=== PATIENT | male | born 1950 | race Caucasian/White ===

== ENCOUNTER 2018-02-19 09:40 | Emergency (ER) | payer OTHER, SELFPAY ==
[2018-02-19 10:29] LABS: BASO % 0.1 % (0.0-1.0); EOS # 0.2 10^3/uL (0.0-0.50); EOS % 3.2 % (0.0-3.0); HEMATOCRIT 44.8 % (42.0-52.0); HEMOGLOBIN 15.6 g/dl (13.5-17.5); IMMATURE GRANULOCYTE % 0.3 % (0-3.0); LYMPH # 1.6 10^3/uL (1.5-4.5); MEAN CORPUSCULAR HEMOGLOBIN 34.9 pg (27.0-33.0); MEAN CORPUSCULAR HGB CONC 34.8 g/dl (32.0-36.5); MEAN CORPUSCULAR VOLUME 100.2 fl (80.0-96.0); MONO # 0.4 10^3/uL (0.0-0.8); NEUTROPHILS # 4.9 10^3/uL (1.8-7.7); NEUTROPHILS % 68.4 % (36.0-66.0); PLATELET COUNT, AUTOMATED 201 10^3/uL (150-450); RED BLOOD COUNT 4.47 10^6/uL (4.30-6.10); RED CELL DISTRIBUTION WIDTH 13.1 % (11.5-14.5); WHITE BLOOD COUNT 7.2 10^3/uL (4.0-10.0)
[2018-02-19 10:38] LABS: INR 0.95; PROTHROMBIN TIME 12.7 SECONDS (12.1-14.4)
[2018-02-19 10:39] LABS: PARTIAL THROMBOPLASTIN TIME 33.4 SECONDS (25.4-37.6)
[2018-02-19 11:06] LABS: ALBUMIN 3.5 GM/DL (3.2-5.2); ALBUMIN/GLOBULIN RATIO 1.09 (1.00-1.93); ALKALINE PHOSPHATASE 51 U/L (45-117); ALT/SGPT 23 U/L (12-78); ANION GAP 8 MEQ/L (8-16); AST/SGOT 13 U/L (7-37); BILIRUBIN,DIRECT 0.1 MG/DL (0.0-0.2); BILIRUBIN,TOTAL 0.4 MG/DL (0.2-1.0); BLOOD UREA NITROGEN 13 MG/DL (7-18); CALCIUM LEVEL 8.5 MG/DL (8.8-10.2); CARBON DIOXIDE LEVEL 26 MEQ/L (21-32); CHLORIDE LEVEL 108 MEQ/L (98-107); CPK CREATINE PHOSPHOKINASE 121 U/L (39-308); CREATININE FOR GFR 0.75 MG/DL (0.70-1.30); FREE T4 1.02 NG/DL (0.76-1.46); GLOMERULAR FILTRATION RATE > 60.0 (>49); GLUCOSE, FASTING 105 MG/DL (70-100); LIPASE 117 U/L (73-393); MB/CK RELATIVE INDEX 2.56 (< OR =4); POTASSIUM SERUM 4.5 MEQ/L (3.5-5.1); SODIUM LEVEL 142 MEQ/L (136-145); TOTAL PROTEIN 6.7 GM/DL (6.4-8.2); TROPONIN I < 0.02 NG/ML (< 0.10)
[2018-02-19] MEDS: NITROGLYCERIN 0.4 MG SUBL TABLET SL (11:06)
[2018-02-19] MEDS: ASPIRIN 81 MG CHEW TABLET PO (11:06)
[2018-02-19 16:23] LABS: CPK CREATINE PHOSPHOKINASE 96 U/L (39-308); TROPONIN I < 0.02 NG/ML (< 0.10)
== END 2018-02-19 16:58 | disposition home or self-care (01) ==
LOC: M ED 09:40
DX: S29.001A Unspecified injury of muscle and tendon of front wall of thorax, initial encounter (principal); X58.XXXA Exposure to other specified factors, initial encounter; Y92.89 Other specified places as the place of occurrence of the external cause; E78.5 Hyperlipidemia, unspecified; I44.0 Atrioventricular block, first degree; F17.210 Nicotine dependence, cigarettes, uncomplicated
CPT/HCPCS: 71046

== ENCOUNTER 2018-10-11 23:11 | Emergency (ER) | payer OTHER ==
[~2018-10-11] VITALS: Ht 182.9 cm; Wt 104.5 kg
[~2018-10-11 23:11] MED LIST: TRAZ1TAB11 PO
[2018-10-12] MEDS ORDERED: KETOROLAC 60 MG/2 ML VIAL (J1885) IM ONE (03:30)
--- NOTE | 2018-10-12 05:13 | REPVR ---
EXAM: CT Lumbar Spine Without Contrast EXAM DATE/TIME: 10/12/2018 3:17 AM CLINICAL HISTORY: 67 years old, male; Injury or trauma; Fall; Initial encounter; Blunt trauma (contusions or hematomas); Additional info: Pain/injury TECHNIQUE: Imaging protocol: Axial computed tomography images of the lumbar spine without intravenous contrast. Coronal and sagittal reformatted images were created and reviewed. Radiation optimization: All CT scans at this facility use at least one of these dose optimization techniques: automated exposure control; mA and/or kV adjustment per patient size (includes targeted exams where dose is matched to clinical indication); or iterative reconstruction. COMPARISON: No relevant prior studies available. FINDINGS: Vertebrae: Moderate degenerative hypertrophic vertebral body changes. Posterior subluxation L2 on L3. Discs/Spinal canal/Neural foramina: Diffuse facet arthritis. Posterior broad-based disc bulge L2-3. Posterior broad-based disc bulge L3-4 with degenerative changes manifest mild central canal stenosis. Mild posterior disc bulge with slight asymmetric extension to the left laterally with facet arthritis and ligamentum flavum thickening manifests [id number] central canal stenosis L4-5 with small inferior foraminal narrowing. No severe canal stenosis L5-S1. Soft tissues: Unremarkable. Calcification at the left renal sinus is most likely vascular in origin. Stomach and bowel: Minor adjacent colonic diverticuli. Vasculature: Calcified abdominal aorta. Ectasia or borderline aneurysmal dilatation distal abdominal aorta measures 3.1 CM. IMPRESSION: 1. Moderate degenerative changes lumbar spine. 2. Mild to moderate central canal stenosis L4-5 with mild central canal stenosis L3-4. 3. Ectasia or borderline aneurysmal dilatation distal abdominal aorta. Electronically signed by: Ana Maria Nunes On 10/12/2018 05:12:28 AM
[2018-10-12 05:41] VITALS: BP 135/86
== END 2018-10-12 05:47 | disposition home or self-care (01) ==
LOC: M ED 23:11
DX: S39.012A Strain of muscle, fascia and tendon of lower back, initial encounter (principal); W10.8XXA Fall (on) (from) other stairs and steps, initial encounter; Y92.9 Unspecified place or not applicable; Y93.9 Activity, unspecified; M48.061 Spinal stenosis, lumbar region without neurogenic claudication; M51.26 Other intervertebral disc displacement, lumbar region; E78.49 Other hyperlipidemia; F17.210 Nicotine dependence, cigarettes, uncomplicated
CPT/HCPCS: 72131; 96372; 99284; J1885

== ENCOUNTER → 2019-11-01 | Outpatient (CLI) | payer OTHER ==
[2019-11-28 19:32] LABS: BASO % 0.2 % (0.0-1.0); EOS # 0.2 10^3/uL (0.0-0.5); EOS % 3.4 % (0.0-3.0); HEMOGLOBIN 14.8 g/dl (13.5-17.5); LYMPH # 1.2 10^3/uL (1.5-5.0); LYMPH % 23.5 % (24.0-44.0); MEAN CORPUSCULAR HEMOGLOBIN 35.8 pg (27.0-33.0); MEAN CORPUSCULAR HGB CONC 34.4 g/dl (32.0-36.5); MEAN CORPUSCULAR VOLUME 104.1 fl (80.0-96.0); MONO # 0.4 10^3/uL (0.0-0.8); MONO % 8.3 % (0.0-5.0); NEUTROPHILS # 3.4 10^3/uL (1.5-8.5); NEUTROPHILS % 64.4 % (36.0-66.0); PLATELET COUNT, AUTOMATED 203 10^3/uL (150-450); RED BLOOD COUNT 4.13 10^6/uL (4.30-6.10); WHITE BLOOD COUNT 5.3 10^3/uL (4.0-10.0)
[2019-12-16 09:03] LABS: ALBUMIN 3.5 GM/DL (3.2-5.2); ALT/SGPT 25 U/L (12-78); BILIRUBIN,DIRECT 0.1 MG/DL (0.0-0.2); BILIRUBIN,TOTAL 0.4 MG/DL (0.2-1.0); BLOOD UREA NITROGEN 15 MG/DL (7-18); CREATININE FOR GFR 0.87 MG/DL (0.70-1.30); FERRITIN 97 NG/ML (26-388); FOLATE 9.9 NG/ML; GLOMERULAR FILTRATION RATE > 60.0 (>49); IRON (FE) 110 UG/DL (65-175); PERCENT SATURATION 44.5 % (19.7-50.0); TOTAL IRON BINDING CAPACITY 247 UG/DL (250-450); TOTAL PROTEIN 6.6 GM/DL (6.4-8.2); VITAMIN B12 LEVEL 311 PG/ML
== END ==
LOC: M LAB 13:36
PROVIDERS: ATTEND Internal Medicine Gastroenterology
DX: D50.9 Iron deficiency anemia, unspecified (principal)

== ENCOUNTER 2019-11-11 09:10 | Day surgery (SDC) | payer OTHER ==
[2019-11-11] MEDS ORDERED: propofoL 200 MG/20 ML VIAL As Ordered ONE ×2 (09:21→10:48)
[2019-11-11] MEDS ORDERED: propofoL 500 MG/50 ML VIAL As Ordered ONE (10:30)
--- NOTE | 2019-12-14 11:33 | ROOR ---
Patient Name: Arpit Hudson Procedure Date: 11/11/2019 10:17 AM Date of : 1950 Age: 68 Room: [facility] Gender: Male Note Status: Finalized Procedure: Colonoscopy Indications: High risk colon cancer surveillance: Personal history of colonic polyps, Incidental - Constipation Providers: Young Hamilton MD Referring MD: DEL WHITE MD Requesting Provider: Medicines: Monitored Anesthesia Care Complications: No immediate complications. Procedure: Pre-Anesthesia Assessment: - Prior to the procedure, a History and Physical was performed, and patient medications and allergies were reviewed. The patient is competent. The risks and benefits of the procedure and the sedation options and risks were discussed with the patient. All questions were answered and informed consent was obtained. Patient identification and proposed procedure were verified by the physician, the nurse and the anesthesiologist in the procedure room. Mental Status Examination: alert and oriented. Airway Examination: normal oropharyngeal airway and neck mobility. Respiratory Examination: clear to auscultation. CV Examination: normal. Prophylactic Antibiotics: The patient does not require prophylactic antibiotics. Prior Anticoagulants: The patient has taken no previous anticoagulant or antiplatelet agents. ASA Grade Assessment: II - A patient with mild systemic disease. After reviewing the risks and benefits, the patient was deemed in satisfactory condition to undergo the procedure. The anesthesia plan was to use monitored anesthesia care (MAC). Immediately prior to administration of medications, the patient was re-assessed for adequacy to receive sedatives. The heart rate, respiratory rate, oxygen saturations, blood pressure, adequacy of pulmonary ventilation, and response to care were monitored throughout the procedure. The physical status of the patient was re-assessed after the procedure. The Colonoscope was introduced through the anus and advanced to the cecum, identified by appendiceal orifice and ileocecal valve. The colonoscopy was performed without difficulty. The patient tolerated the procedure well. The quality of the bowel preparation was fair. The ileocecal valve, appendiceal orifice, and rectum were photographed. Scope insertion time was 4 minutes. Scope withdrawal time was 8 minutes. The total duration of the procedure was 12 minutes. Findings: The perianal and digital rectal examinations were normal. Four sessile polyps were found in the recto-sigmoid colon, descending colon and transverse colon. The polyps were 4 to 8 mm in size. These polyps were removed with a jumbo cold forceps. Resection and retrieval were complete. Verification of patient identification for the specimen was done by the physician and nurse using the patient's name, date and medical record number. Estimated blood loss was minimal. Multiple small and large-mouthed diverticula were found from sigmoid to descending colon. There was no evidence of diverticular bleeding. Non-bleeding external and internal hemorrhoids were found during retroflexion. The hemorrhoids were medium-sized. Impression: - Preparation of the colon was fair. - Four 4 to 8 mm polyps at the recto-sigmoid colon, in the descending colon and in the transverse colon, removed with a jumbo cold forceps. Resected and retrieved. - Moderate diverticulosis from sigmoid to descending colon. There was no evidence of diverticular bleeding. - Non-bleeding external and internal hemorrhoids. Recommendation: - Patient has a contact number available for emergencies. The signs and symptoms of potential delayed complications were discussed with the patient. Return to normal activities tomorrow. Written discharge instructions were provided to the patient. - High fiber diet. - Continue present medications. - Await pathology results. - Use fiber, for example Citrucel, Fibercon, Konsyl or Metamucil. - Telephone GI clinic for pathology results in 2 weeks. - Repeat colonoscopy in 3 years because the bowel preparation was suboptimal and for surveillance based on pathology results. - Return to GI clinic if persistent symptoms or new symptoms. - Return to primary care physician. Young Hamilton MD Young Hamilton MD 11/11/2019 10:58:48 AM Electronically signed by Young Hamilton MD Number of Addenda: 0 Note Initiated On: 11/11/2019 10:17 AM Estimated Blood Loss: Estimated blood loss was minimal.
== END 2019-11-11 11:27 | disposition home or self-care (01) ==
LOC: M OPP 09:10
PROVIDERS: ATTEND Internal Medicine Gastroenterology
DX: K57.30 Diverticulosis of large intestine without perforation or abscess without bleeding (principal); K64.8 Other hemorrhoids; K63.5 Polyp of colon; R19.4 Change in bowel habit; D50.9 Iron deficiency anemia, unspecified; Z86.010 Personal history of colon polyps; Z79.899 Other long term (current) drug therapy

== ENCOUNTER → 2020-01-03 | Outpatient (CLI) | payer OTHER | LOC: M LABSMTC 12:39 | PROVIDERS: ATTEND Family Medicine | DX: Z20.828 Contact with and (suspected) exposure to other viral communicable diseases (principal) | CPT/HCPCS: C9803; U0003 ==

== ENCOUNTER → 2020-03-27 | Outpatient (CLI) | payer OTHER ==
--- NOTE | 2020-03-31 16:53 | REP ---
INDICATION: INITIAL STAGING NEW CANCER DX SMALL CELL. Diagnosis small cell lung carcinoma on endoscopic bronchial ultrasound-guided biopsy. Patient reports biopsy date March 26, 2020. He also reports a prior history of prostate carcinoma. Diagnosed in 2008. Status post radiation therapy COMPARISON: No comparison chest imaging is available.. TECHNIQUE: Forty-five minutes following the intravenous injection of a 8.77 mCi dose of F-18 FDG, three-dimensional PET scintigraphy is acquired from the skull base to the proximal thighs. Triplanar noncontrast CT scanning is acquired through the same anatomic range for attenuation correction, and image registration with scan parameters optimized to minimize radiation exposure to the patient. PET scintigraphy and CT datasets were fused and displayed on a workstation with multiplanar and projection display capability. FINDINGS: There is a focus of hypermetabolic uptake in the region of the supraglottic larynx. Maximum standard uptake value here is 4.81. This should be correlated clinically. I cannot exclude a supraglottic laryngeal malignant focus. There are hypermetabolic pleural based nodular foci in the right lung apex. Maximum standard uptake value is 4.51, 3.40, and 2.42 in the 3 visible right apical pleural based nodules. There is an additional nodule anteriorly in the right upper lobe which is not visibly hypermetabolic. There is a small focus of pleural thickening laterally in the right upper lobe, maximum SUV value 2.52. There is right hilar hypermetabolic charlene focus, maximum SUV value 8.62 consistent with metastatic adenopathy. In the abdomen and pelvis there is no abnormal hypermetabolic uptake. IMPRESSION: Hypermetabolic uptake in 3 pleural based nodular foci in the right upper lobe and 1 equivocal focus in the right upper lobe. Hypermetabolic right hilar adenopathy. Also noted is a hypermetabolic focus in the supraglottic larynx just to the right of midline. This latter finding should be correlated clinically. <Electronically signed by Jesse Saldivar > 03/31/20 [id number]
== END ==
LOC: M PLARAD 15:21
DX: R93.89 Abnormal findings on diagnostic imaging of other specified body structures (principal); C34.11 Malignant neoplasm of upper lobe, right bronchus or lung; Z85.46 Personal history of malignant neoplasm of prostate
CPT/HCPCS: 78815; A9552

== ENCOUNTER → 2020-04-12 | Outpatient (CLI) | payer OTHER ==
[~2020-04-12] MED LIST changes: +ATIV1TAB7 PO; +PROHANCE 279.3MG/ML 15ML VIAL As Ordered ONE; +PROHANCE 279.3MG/ML 5ML VIAL As Ordered ONE
--- NOTE | 2020-04-13 08:48 | REP ---
INDICATION: CARCINOMA IN SITU OF UNSPECIFIED BRONCHUS AND LUNG. History of small cell lung carcinoma. COMPARISON: No comparison brain imaging. . TECHNIQUE: Axial and sagittal imaging planes are utilized for T1 and T2-weighted scans. Sequences include spin-echo, fast spin echo, FLAIR, and diffusion weighted sequences. Gadolinium enhancement dose is 19 mL of intravenous ProHance. Postcontrast imaging is acquired in all 3 planes. FINDINGS: No bony destructive lesion is seen. Craniocervical junction and upper cervical cord are normal in appearance. There is no MR evidence of significant paranasal sinus disease. No intraorbital abnormality is seen. There is evidence of small-vessel atherosclerotic change in the periventricular white matter of the supratentorial brain bilaterally. Unfortunately, diffusion weighted and post gadolinium enhanced images demonstrate multiple foci of somewhat restricted diffusion and contrast enhancement bilaterally in the brain consistent with early metastatic disease. The largest of these lesions is in the right basal ganglia 4 mm in size. There is a single lesion in the right cerebellar peduncle. No other infratentorial lesion is seen. There are multiple supratentorial tiny nodules of enhancement bilaterally. On FLAIR images a few of these show evidence of early vasogenic edema. No extra-axial fluid collection is seen. No infarct or hemorrhage is noted. IMPRESSION: There are multifocal areas of restricted diffusion and abnormal contrast enhancement in the parenchyma of the supratentorial brain, and a single focus in the right cerebellar peduncle, consistent with intracranial metastatic disease. Small vessel changes are noted. Otherwise negative. <Electronically signed by Jesse Saldivar > 04/13/20 [id number]
== END ==
LOC: M RAD 16:58
PROVIDERS: ATTEND Internal Medicine Pulmonary Disease
DX: D02.20 Carcinoma in situ of unspecified bronchus and lung (principal)
CPT/HCPCS: 70553; A9576

== ENCOUNTER → 2020-04-17 | Outpatient (CLI) | payer OTHER ==
[~2020-04-17] MED LIST changes: -PROHANCE 279.3MG/ML 15ML VIAL As Ordered ONE; -PROHANCE 279.3MG/ML 5ML VIAL As Ordered ONE
--- NOTE | 2020-04-17 16:11 | RADONC.CN ---
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 He is seen s/p cycle 1 of chemotherapy @ [facility] on 04/05/20 for consideration of RT. Diagnosis/Treatment History Oncologic History 50+ pack year current smoker served in [place] [employer] Presented for screening CT chest in early 2019, this showed an abnormal RUL nodule. He underwent biopsy of the RUL nodule in 09/19/19 which was negative. Repeat CT chest in February 2020 showed 2 additional nodules and a suspicious right hilar/mediastinal node. EBUS was performed and returned SCLC on 03/13/20. He underwent PET-CT on 03/27/20 which revealed no extrathoracic foci of disease. He started cisplatin/etoposide on 04/05/20 with plans to transfer all care to [facility]. His MRI head from 04/12/20 showed (2) 4 mm brain metastases. Interval History He is here today alone. Has several children and grandchildren. Clearly expressed his goals of care are to live from this disease as long as possible and to fight. He currently smokes. He has no major medical problems. Appetite is good weight stable. Has no complaints of pain today. No CP, SOB, N, V, fevers, chills, PINO. Past Medical History: Anxiety/PTSD PTSD COPD Alcoholism in remission Prostate cancer s/p EBRT 2008 [facility] Past Surgical History: As above Family History: No family cancer history Social History: Current smoker 50+ pack year Former drinker Allergies / Meds Allergies: Coded Allergies: No Known Allergies (Unverified , 02/19/18) Home Meds Reported Medications Trazodone HCl (Trazodone HCl) 50 Mg Tab, PO QPM for 30 Days, #30 TAB 02/19/18 Review of Systems Constitutional: Denies: Chills, Fever, Night Sweats Eyes: Denies: Pain, Vision change HEENT: Denies: Head Aches, Dysphagia, Sore Throat Skin: Denies: Rash, Lesions, Bruising Pulmonary: Denies: Dyspnea, Cough Cardiovascular: Denies: Chest Pain, Palpitations, Edema Gastrointestinal: Denies: Nausea, Vomiting, Abdominal Pain, Diarrhea Genitourinary: Denies: Dysuria, Frequency, Incontinence Hematologic: Denies: Bruising, Petecchia, Enlarged Lymph Nodes Musculoskeletal: Denies: Neck pain, Back pain Neurological: Denies: Weakness, Numbness, Incoordination Psych: Reports: Mood Normal; Denies: Memory Issues, Thoughts of Self Harm Vital Signs Wt 222 lb T 98.6 P 69 RR 18 BP 152/94 O2 95% Pain 0 Fatigue 0 General Exam: Positive: Alert, Cooperative, No Acute Distress Eye Exam: Positive: PERRLA, EOMI ENT EXAM: Positive: Mucous membr. moist/pink, Pharynx Normal Neck Exam: Negative: Thyromegaly, Lymphadenopathy Chest Exam: Positive: Normal air movement; Negative: Rales, Rhonchi, Wheezing Heart Exam: Positive: Rate Normal, Regular Rhythm Abdomen Exam: Positive: Soft; Negative: Tenderness, Mass Extremity Exam: Negative: Edema, Tenderness Skin Exam: Positive: Nl turgor and temperature; Negative: Rash Neuro Exam: Positive: Normal Gait, Normal Speech, Cranial Nerves 3-12 NL Psych Exam: Positive: Mental status NL, Mood NL, Memory Intact Diagnostic and Laboratory Diagnostic Review Radiologic images, relevant labs and pathology reports were personally reviewed and discussed with Mr. Hudson. Assessment and Plan Impression Mr. Hudson is a 69 year old male 50+ pack year smoker with recently diagnosed SCLC of the right upper lobe [id number], with (2) 4mm asymptomatic brain metastases on staging MRI head. He is seen s/p cycle 1 of chemotherapy @ [facility] on 04/05/20 for consideration of RT. Stage SCLC right upper lobe [id number] stage FAM Performance Status ECOG 0 Plan We had an extensive discussion with Mr. Hudson regarding the diagnosis at hand and available therapeutic options. He is fit overall and has an extremely low overall disease burden confined to the right hemithorax (small peripheral nodules and single site hilar/mediastinal node) and brain (2 asymptomatic very small metastases). Despite him being ES by definition I think he would be best served by early incorporation of thoracic RT in addition to WBRT with namenda and concurrent chemotherapy for continuation of which he will be seeing Dr. Rodriguez tomorrow. I will give him 30 Gy in 10 fractions WBRT and 60-66 Gy in 30-33 fractions to the chest with 3D conformal planning. He should tolerate this well. Will treat this sites concurrently. Discussed the use of namenda as a neuroprotective agent in the setting of WBRT and he agrees to try. We discussed the logistics of receiving radiation therapy in detail including the need for a 1-time planning session this can occur later this week. We reviewed the possible side effects of treatment including fatigue, hair loss, and neurocognitive dysfunction from WBRT, and esophagitis and pneumonitis from thoracic RT. After discussing the risks, benefits and alternatives to radiation therapy, Mr. Hudson was amenable to pursuing radiotherapy. All questions were answered to the patient's satisfaction. We instructed the patient that if there were any questions,concerns or changes in clinical status in the interim to contact us. Recommendations WBRT 30 Gy in 10 fractions with namenda Thoracic RT 60 Gy in 30 fractions w/ 3D planning daily CBCT Simulation later this week Chemotherapy per CHRIS Rosario MD Apr 17, 2020 16:11
== END ==
LOC: M ONCR 14:28
PROVIDERS: ATTEND General Practice
DX: C34.11 Malignant neoplasm of upper lobe, right bronchus or lung (principal)

== ENCOUNTER 2020-05-04 10:45 | Outpatient (RCR) | payer OTHER | END 2020-05-06 | LOC: M ONCR 10:45 | PROVIDERS: ATTEND General Practice | DX: C34.11 Malignant neoplasm of upper lobe, right bronchus or lung (principal); C79.31 Secondary malignant neoplasm of brain ==

== ENCOUNTER 2020-05-16 13:31 | Inpatient (IN) | payer OTHER ==
[~2020-05-16] VITALS: Ht 182.9 cm; Wt 97.7 kg
[~2020-05-16 13:31] MED LIST changes: -LOVE1INJ SC
--- NOTE | 2020-05-16 15:17 | REP ---
INDICATION: DYSPNEA/COUGH. COMPARISON: 02/19/2018. TECHNIQUE: SINGLE PORTABLE AP VIEW OF THE CHEST WAS PERFORMED. FINDINGS: There is no evidence of acute infiltrate. Heart is not enlarged. Mediastinal silhouette is unchanged. Right central venous catheter is present with the tip in the superior vena cava. Old healed right rib fractures are again noted. IMPRESSION: NO ACUTE PULMONARY DISEASE. <Electronically signed by Jasper Wheeler > 05/16/20 [id number]
[2020-05-16 15:35] LABS: HEMATOCRIT 30.7 % (42.0-52.0); HEMOGLOBIN 10.3 g/dl (13.5-17.5); MEAN CORPUSCULAR HEMOGLOBIN 35.2 pg (27.0-33.0); MEAN CORPUSCULAR HGB CONC 33.6 g/dl (32.0-36.5); MEAN CORPUSCULAR VOLUME 104.8 fl (80.0-96.0); RED BLOOD COUNT 2.93 10^6/uL (4.30-6.10); WHITE BLOOD COUNT 6.2 10^3/uL (4.0-10.0)
[2020-05-16 15:41] LABS: INR 0.89; PROTHROMBIN TIME 12.2 SECONDS (12.5-14.3)
[2020-05-16 15:45] LABS: PLATELET COUNT, AUTOMATED 54 10^3/uL (150-450)
[2020-05-16 15:50] LABS: ATYPICAL LYMPH 1 % (0-5); EOSINOPHILS 1 % (0-3); LYMPHOCYTES 15 % (16-44); MONOCYTES 4 % (0-5); NEUTROPHILS 65 % (28-66)
[2020-05-16 15:51] LABS: ANISOCYTOSIS 1+; PLATELET ESTIMATE DECREASED (NORMAL)
[2020-05-16 15:54] LABS: ALBUMIN 3.2 GM/DL (3.2-5.2); ALT/SGPT 20 U/L (12-78); BILIRUBIN,DIRECT 0.1 MG/DL (0.0-0.2); BILIRUBIN,TOTAL 0.3 MG/DL (0.2-1.0); BLOOD UREA NITROGEN 19 MG/DL (7-18); CALCIUM LEVEL 8.8 MG/DL (8.8-10.2); CARBON DIOXIDE LEVEL 28 MEQ/L (21-32); CHLORIDE LEVEL 105 MEQ/L (98-107); GLOMERULAR FILTRATION RATE > 60.0 (>49); GLUCOSE, FASTING 81 MG/DL (70-100); POTASSIUM SERUM 4.4 MEQ/L (3.5-5.1); SODIUM LEVEL 139 MEQ/L (136-145); TOTAL PROTEIN 6.3 GM/DL (6.4-8.2)
[2020-05-16] MEDS ORDERED: HEPARIN DRIP 25,000 UNITS in IV 1 EA IV SCH (16:17)
[2020-05-16] MEDS ORDERED: HEPARIN SOD (PORCINE) 5000UNITS/ML 1ML VIAL/SYRINGE IV ONE (16:30)
--- OUTSIDE RECORDS SUMMARY | 2020-05-16 16:33 | CCD ---
Author Author [facility] Organization [facility] Address Unknown Phone Unavailable Support Name Relationship Address Phone RE Next Of Kin Unknown Unavailable THEE BUTCHER Next Of Kin Unknown Unavailable [place] [address] UE Next Of Kin Unknown Unavailable DEEJAY GUEVARA Next Of Kin [address] [place], [place] [id number] Re-disclosure Warning The records that you are about to access may contain information from federally-assisted alcohol or drug abuse programs. If such information is present, then the following federally mandated warning applies: This information has been disclosed to you from records protected by federal confidentiality rules (42 CFR part 2). The federal rules prohibit you from making any further disclosure of this information unless further disclosure is expressly permitted by the written consent of the person to whom it pertains or as otherwise permitted by 42 CFR part 2. A general authorization for the release of medical or other information is NOT sufficient for this purpose. The Federal rules restrict any use of the information to criminally investigate or prosecute any alcohol or drug abuse patient.The records that you are about to access may contain highly sensitive health information, the redisclosure of which is protected by Article 27-F of the [facility] Public Health law. If you continue you may have access to information: Regarding HIV / AIDS; Provided by facilities licensed or operated by the [facility] Office of Mental Health; or Provided by the [facility] Office for People With Developmental Disabilities. If such information is present, then the following [facility] mandated warning applies: This information has been disclosed to you from confidential records which are protected by state law. State law prohibits you from making any further disclosure of this information without the specific written consent of the person to whom it pertains, or as otherwise permitted by law. Any unauthorized further disclosure in violation of state law may result in a fine or [place] [facility] sentence or both. A general authorization for the release of medical or other information is NOT sufficient authorization for further disc losure. Insurance Providers Payer name Policy type / Coverage type Policy ID Covered green party ID Covered green party's relationship to tyson Policy Tyson Plan Information 'S ADMINISTRATION [id number] SP [id number] [employer] [place] CCN [id number] SP [id number] [employer] [place] O [id number] S [id number] OTHER B [id number] Self [id number] MEDICARE A [id number] Self [id number] MEDICARE A [id number] Self [id number] A SELF PAY ONLY UNAVAILABLE UNAV AILABLE O UNAVAILABLE UNAVAILA BLE SELF PAY UNAVAILABLE SP UNAVAILA BLE SELF PAY SELF PAY Self DAVID BUTCHER SELF PA Y Results ID Date Data Source [id number] 01/03/2020 01:00:00 PM EDT [facility] Name Value Range Interpretation Code Description Data Luly rce(s) Supporting Document(s) SARS coronavirus 2 RNA [facility] This lab was ordered by [facility] and reported by [facility]. Procedure Vital Signs ID Date Data Source UNK Name Value Range Interpretation Code Description Data Source(s) Body weight 94.349 kg 94.349 kg [facility] ([facility]) Body mass index (BMI) [Ratio] 28.2 kg/m2 28.2 k g/m2 [facility] ([facility]) Body weight 208.00 [lb_av] 208.00 [lb_av] [facility] Body height 72 [in_i] 72 [in_i] [facility] ([facility]) 6'0" Diastolic blood pressure 68 mm[Hg] 68 mm[Hg] [facility] ([facility]) Systolic blood pressure 128 mm[Hg] 128 mm[Hg] [facility] ([facility])
[2020-05-16] MEDS ORDERED: ACETAMINOPHEN TAB 650MG DOSE (2X325MG) PO ONE (16:45)
[2020-05-16 17:03] LABS: PARTIAL THROMBOPLASTIN TIME 36.6 SECONDS (24.2-38.5)
--- NOTE | 2020-05-16 17:14 | HPEPDOC ---
[facility] Medical History & Physical Date of Admission May 16, 2020 Date of Service: May 16, 2020 Attending Physician: Christiana Browning MD History and Physical CHIEF COMPLAINT: port swelling, chest pain HISTORY OF PRESENT ILLNESS: Patient is an 69-year-old male with past medical history of small cell lung cancer with metastasis to the brain status post radiation and chemotherapy, COPD and prostate cancer status post radiation who presented to [facility] today after being sent in from his doctor's office for right neck swelling and pain. The patient was at radiation today and was found to have a large right neck, right upper chest swelling which occurred acutely today. An ultrasound was done showing a right subclavian, right axillary and right subclavian DVT. The patient states a right chest port was placed on 04/05/2020 at the [facility] [place] and immediately he felt some pain. He states 2 weeks ago he noticed right upper chest pain with movement of his arm which was bothersome. Today he noticed acute swelling on the right side of the neck and right upper chest. This is when he brought it up to his radiation oncologist admitted the outpatient ultrasound showing the results already mentioned. He was sent into the emergency room to be further evaluated. The patient admits to having occasional shortness of breath, coughing, nausea, diarrhea with some weight loss since starting chemotherapy and radiation but denies chest pain, fevers, chills. The emergency room, vital signs were stable. The ultrasound findings were discussed with Dr. Quiles, interventional radiology. She recommended admitting for heparin drip and monitoring for decreased swelling of the right side of the neck and face. She states that the patient can be discharged with Lovenox when the swelling begins to go down. There were no other acute complaints or abnormal findings on exam. The patient was admitted for occlusive thrombus distal right jugular vein, adjacent subclavian vein and central aspect of axillary vein, partial thrombus of the more superior right jugular vein requiring anticoagu lation. REVIEW OF SYSTEMS: Neg except mentioned above PAST MEDICAL HISTORY: Small cell Lung CA with metastasis to brain s/p radiation and currently undergoing chemotherapy COPD prostate CA s/p radiation PAST SURGICAL HISTORY: Right chest port placement 03/2020 Right wrist surgery FAMILY HISTORY: Father: emphysema. at 80 y/o Mother: breast cancer. at 71 y/o SOCIAL HISTORY: Smoker for 52 years, 2 packs per day. Currently still smokes. Thinks alcohol socially during the week. History of drug addiction but has been clean for over 30 years. He lives alone in [facility]. He follows with the [facility] in [place] for his primary care. His heme/onc Dr. is Dr. Rodriguez, Dr. Dubois for radiation oncology. ALLERGIES: Please see below. HOME MEDICATIONS: Please see below. PHYSICAL EXAMINATION: VS: stable , please see below CONSTITUTIONAL: No acute distress, resting comfortably, AAO x 3 EYES: PERRLA, EOM intact HENT, MOUTH: Normocephalic, atraumatic, moist mucous membranes, alopecia NECK: Increased swelling of right neck, right upper chest- tender to touch, no erythema. no lymphadenopathy, no carotid bruit CV: Regular rate and rhythm, S1S2 normal, no murmurs/rubs/gallops RESPIRATORY: Clear to auscultation bilaterally, no rales/rhonchi/wheezes GI: BS positive in 4 quadrants, soft, nontender, nondistended, no rebound or guarding, no organomegaly : Deferred MUSCULOSKELETAL: Normal ROM. No cyanosis, clubbing, swelling, joint deformity, extremity edema INTEGUMENTARY: Intact, no rashes, no lesions, no erythema NEUROLOGIC: Cranial Nerves II-XII are intact, no focal deficits PSYCHIATRIC: Mood and affect are normal LABORATORY DATA: Please see below IMAGING: US: Occlusive thrombus distal right jugular vein, adjacent subclavian vein and central aspect of axillary vein. Partial thrombus of the more superior right jugular vein where a central venous catheter enters. ASSESSMENT: 69-year-old male with past medical history of small cell lung cancer with metastasis to the brain status post radiation and chemotherapy, COPD and prostate cancer status post radiation admitted for new occlusive thrombus distal right jugular vein, adjacent subclavian vein and central aspect of axillary vein, partial thrombus of the more superior right jugular vein requiring IV anticoagulation. PLAN: DVT right upper chest/neck likely 2/2 to right chest port -US RUE: new occlusive thrombus distal right jugular vein, adjacent subclavian vein and central aspect of axillary vein, partial thrombus of the more superior right jugular vein requiring IV anticoagulation. -ER discussed with Dr. Quiles, keep port, start IV heparin gtt and monitor swelling of right neck/upper chest. -Started on heparin gtt but goal is to transition to SC heparin when swelling improves. -Monitor coags per protocol -Pain control PRN Small cell Lung CA with metastasis to brain s/p radiation and currently undergoing chemotherapy -S/p 10 doses of radiation to the brain, currently 14/40 doses of radiation to the lungs -Chemo: finished 2/3 rounds 2 weeks ago, to resume in next couple weeks -Follows with Dr. Rodriguez, [facility]c [facility] COPD -Stable -Can add Albuterol PRN Prostate CA s/p radiation -Remission Tobacco use -Nicotine patch DVT px -Heparin gtt DISPOSITION: Plan is to discharge home when medically improved. Vital Signs Vital Signs Date Time Temp Pulse Resp B/P (MAP) Pulse Ox O2 Delivery O2 Flow Rate FiO2 05/16/20 14:45 137/77 (97) 05/16/20 14:31 82 95 05/16/20 13:32 99.4 24 Room Air Laboratory Data Labs 24H Laboratory Tests 2 05/16/20 15:17: Neutrophils (%) (Auto) , Nucleated Red Blood Cells % (auto) 0.0, Neutrophils 65, Band Neutrophils 14H, Lymphocytes (Manual) 15L, Monocytes (Manual) 4, Eosinophils (Manual) 1, Atypical Lymphocytes 1, Anisocytosis 1+, Macrocytosis 2+, Platelet Estimate DECREASED, Immature Platelet Fraction 4.9, Prothrombin Time 12.2, Prothromb Time International Ratio 0.89, Activated Partial Thromboplast Time 36.6, Anion Gap 6L, Glomerular Filtration Rate > 60.0, Calcium Level 8.8, Total Bilirubin 0.3, Direct Bilirubin 0.1, Aspartate Amino Transf (AST/SGOT) 9, Alanine Aminotransferase (ALT/SGPT) 20, Alkaline Phosphatase 67, Total Protein 6.3L, Albumin 3.2, Albumin/Globulin Ratio 1.0 CBC/BMP Laboratory Tests 05/16/20 15:17 Home Medications Scheduled Trazodone HCl (Trazodone HCl) 50 Mg Tab, 200 MG PO QHS RX STATES UP TO 5 TABLETS QHS PRN Scheduled PRN Ondansetron HCl (Ondansetron HCl) 4 Mg Tablet, 1 TAB PO TID PRN for nausea/vomiting Allergies Coded Allergies: No Known Allergies (Unverified , 02/19/18) A-FIB/CHADSVASC A-FIB History Current/History of A-Fib/PAF?: No Current PO Anticoag Therapy: No Age/Risk Factor Scoring CHADSVASC: CHADSVASC Response (Comments) Value Age Risk Factor Age 65-74 years old 1 Gender Risk Factor Male 0 Hx of CHF No 0 Hx of HTN No 0 Hx of Stroke/TIA/or VTE No 0 Hx of Diabetes No 0 Hx of Vascular Disease No 0 Total 1 Treatment Treatment ordered: Other Other anticoagulant ordered: heparin gtt Christiana Browning MD May 16, 2020 17:14
[2020-05-16] MEDS ORDERED: HEPARIN SOD (PORCINE) 5000UNITS/ML 1ML VIAL/SYRINGE IV PRN (17:15)
--- OUTSIDE RECORDS SUMMARY | 2020-05-16 17:20 | CCD ---
Author Author [facility] Organization [facility] Address Unknown Phone Unavailable Support Name Relationship Address Phone RE Next Of Kin Unknown Unavailable THEE BUTCHER Next Of Kin Unknown Unavailable [place] [address] UE Next Of Kin Unknown Unavailable DEEJAY GUEVARA Next Of Kin [address] [place], [place] [id number] Re-disclosure Warning The records that you are [...] is protected by Article 27-F of the [facility] Public Health law. If you continue you may have access to information: Regarding HIV / AIDS; Provided by facilities licensed or operated by the [facility] Office of Mental Health; or Provided by the [facility] Office for People With Developmental Disabilities. If such information is present, then the following [facility] mandated warning applies: This information has been [...] law may result in a fine or fpc sentence or both. A general authorization for the release of medical or other information is NOT sufficient authorization for further disc losure. Insurance Providers Payer name Policy type / Coverage type Policy ID Covered democrat ID Covered democrat's relationship to tyson Policy Tyson Plan Information 'S ADMINISTRATION [id number] SP [id number] [employer] [place] CCN [id number] SP [id number] [employer] [place] O [id number] S [id number] OTHER B [id number] Self [id number] MEDICARE A [id number] Self [id number] MEDICARE A [id number] Self [id number] A SELF PAY ONLY UNAVAILABLE UNAV AILABLE O UNAVAILABLE UNAVAILA BLE SELF PAY UNAVAILABLE SP UNAVAILA BLE SELF PAY SELF PAY Self DAVID BUTCHER SELF PA Y Results ID Date Data Source [id number] 01/03/2020 01:00:00 PM EDT [facility] Name Value Range Interpretation Code Description Data Luly rce(s) Supporting Document(s) SARS coronavirus 2 RNA [facility] This lab was ordered by [facility] and reported by [facility]. Procedure Vital Signs ID Date Data Source UNK Name Value Range Interpretation Code Description Data Source(s) Body weight 94.349 kg 94.349 kg [facility] ([facility]) Body mass index (BMI) [Ratio] 28.2 kg/m2 28.2 k g/m2 [facility] ([facility]) Body weight 208.00 [lb_av] 208.00 [lb_av] [facility] Body height 72 [in_i] 72 [in_i] [facility] ([facility]) 6'0" Diastolic blood pressure 68 mm[Hg] 68 mm[Hg] [facility] ([facility]) Systolic blood pressure 128 mm[Hg] 128 mm[Hg] [facility] ([facility])
[2020-05-16] MEDS ORDERED: ACETAMINOPHEN TAB 650MG DOSE (2X325MG) PO PRN (18:15)
[2020-05-16] MEDS ORDERED: NICOTINE 21MG/24HR 1 EA TRANSDERMAL TD ONE (18:15)
[2020-05-16] MEDS: HEPARIN DRIP 25,000 UNITS in IV 1 EA IV SCH (20:06)
[2020-05-16 20:11] LABS: RSV AMPLIFICATION NEGATIVE (NEGATIVE)
[2020-05-16] MEDS: traZODone 100 MG TAB PO SCH (21:15)
[2020-05-16 22:55] LABS: HEMATOCRIT 30.1 % (42.0-52.0); HEMOGLOBIN 10.1 g/dl (13.5-17.5); MEAN CORPUSCULAR HEMOGLOBIN 34.6 pg (27.0-33.0); MEAN CORPUSCULAR HGB CONC 33.6 g/dl (32.0-36.5); MEAN CORPUSCULAR VOLUME 103.1 fl (80.0-96.0); RED BLOOD COUNT 2.92 10^6/uL (4.30-6.10); WHITE BLOOD COUNT 5.1 10^3/uL (4.0-10.0)
[2020-05-16 22:56] LABS: PLATELET COUNT, AUTOMATED 52 10^3/uL (150-450)
[2020-05-17 00:13] VITALS: BP 122/45
[2020-05-17] MEDS: ONDANSETRON 4 MG TAB PO PRN ×3 (00:35→16:30)
[2020-05-17] MEDS: traMADol 50 MG TAB PO PRN (00:36)
[2020-05-17 05:30] LABS: HEMATOCRIT 28.3 % (42.0-52.0); HEMOGLOBIN 9.5 g/dl (13.5-17.5); MEAN CORPUSCULAR HEMOGLOBIN 34.8 pg (27.0-33.0); MEAN CORPUSCULAR HGB CONC 33.6 g/dl (32.0-36.5); MEAN CORPUSCULAR VOLUME 103.7 fl (80.0-96.0); RED BLOOD COUNT 2.73 10^6/uL (4.30-6.10); WHITE BLOOD COUNT 5.4 10^3/uL (4.0-10.0)
[2020-05-17 05:33] LABS: PLATELET COUNT, AUTOMATED 53 10^3/uL (150-450)
[2020-05-17 06:00] VITALS: BP 109/55
[2020-05-17 06:07] LABS: ALBUMIN 2.8 GM/DL (3.2-5.2); ALT/SGPT 16 U/L (12-78); BILIRUBIN,TOTAL 0.3 MG/DL (0.2-1.0); BLOOD UREA NITROGEN 19 MG/DL (7-18); CALCIUM LEVEL 8.6 MG/DL (8.8-10.2); CARBON DIOXIDE LEVEL 27 MEQ/L (21-32); CHLORIDE LEVEL 105 MEQ/L (98-107); CREATININE FOR GFR 1.21 MG/DL (0.70-1.30); GLOMERULAR FILTRATION RATE > 60.0 (>49); GLUCOSE, FASTING 84 MG/DL (70-100); POTASSIUM SERUM 4.5 MEQ/L (3.5-5.1); SODIUM LEVEL 138 MEQ/L (136-145); TOTAL PROTEIN 6.1 GM/DL (6.4-8.2)
[2020-05-17] MEDS: HEPARIN DRIP 25,000 UNITS in IV 1 EA IV SCH (10:19)
[2020-05-17 14:00] VITALS: BP 110/60
--- NOTE | 2020-05-17 15:16 | IPNPDOC ---
Date Seen The patient was seen on 05/17/20. Progress Note SUBJECTIVE: Right neck/upper chest swelling persists with some tenderness, new left neck nodule. US ordered. On heparin gtt and will be until tomorrow per Dr. Quiles. Denies chest pain, incr SOB. OBJECTIVE: PHYSICAL EXAMINATION: VS: stable , please see below CONSTITUTIONAL: No acute distress, resting comfortably, AAO x 3 EYES: PERRLA, EOM intact HENT, MOUTH: Normocephalic, atraumatic, moist mucous membranes, alopecia NECK: swelling of right neck, right upper chest- tender to touch, no erythema. no lymphadenopathy, no carotid bruit. New left neck nodule, rubbery, able to be moved CV: Regular rate and rhythm, S1S2 normal, no murmurs/rubs/gallops RESPIRATORY: Clear to auscultation bilaterally, no rales/rhonchi/wheezes GI: BS positive in 4 quadrants, soft, nontender, nondistended, no rebound or guarding, no organomegaly : Deferred MUSCULOSKELETAL: Normal ROM. No cyanosis, clubbing, swelling, joint deformity, extremity edema INTEGUMENTARY: Intact, no rashes, no lesions, no erythema NEUROLOGIC: Cranial Nerves II-XII are intact, no focal deficits PSYCHIATRIC: Mood and affect are normal LABORATORY DATA: Please see below IMAGING: Thyroid/ST neck US F/u US: Occlusive thrombus distal right jugular vein, adjacent subclavian vein and central aspect of axillary vein. Partial thrombus of the more superior right jugular vein where a central venous catheter enters. ASSESSMENT: 69-year-old male with past medical history of small cell lung cancer with metastasis to the brain status post radiation and chemotherapy, COPD and prostate cancer status post radiation admitted for new occlusive thrombus distal right jugular vein, adjacent subclavian vein and central aspect of axillary vein, partial thrombus of the more superior right jugular vein requiring IV anticoagulation. PLAN: DVT right upper chest/neck likely 2/2 to right chest port -US RUE: new occlusive thrombus distal right jugular vein, adjacent subclavian vein and central aspect of axillary vein, partial thrombus of the more superior right jugular vein requiring IV anticoagulation. -ER and myself today discussed with Dr. Quiles, keep port, c/w IV heparin gtt and monitor swelling of right neck/upper chest. -Started on heparin gtt but goal is to transition to SC heparin likely tomorrow afternoon -Will need lovenox shots set up as o/p. working with PFS on this -Monitor coags per protocol -Pain control PRN Left neck nodule, new since admission -R/o mass vs. clot? -F/u thyroid/ST US today Small cell Lung CA with metastasis to brain s/p radiation and currently undergoing chemotherapy -Went for radiation today -S/p 10 doses of radiation to the brain, currently 15/40 doses of radiation to the lungs -Chemo: finished 2/3 rounds 2 weeks ago, to resume in next couple weeks -Follows with Dr. Rodriguez, heme/onc [facility] COPD -Stable -Can add Albuterol PRN Prostate CA s/p radiation -Remission Tobacco use -Nicotine patch DVT px -Heparin gtt DISPOSITION: Plan is to discharge home when medically improved. Will need f/u arranged with Dr. Quiles at discharge. VS, I&O, 24H, Fishbone Vital Signs/I&O Vital Signs Date Time Temp Pulse Resp B/P (MAP) Pulse Ox O2 Delivery O2 Flow Rate FiO2 05/17/20 14:00 97.5 85 19 110/60 (77) 100 Room Air I&O- Last 24 Hours up to 6 AM 05/17/20 05:59 Intake Total 30.2 ml Output Total 200 ml Balance -169.8 ml Laboratory Data 24H LABS Laboratory Tests 2 05/16/20 15:17: Neutrophils (%) (Auto) , Nucleated Red Blood Cells % (auto) 0.0, Neutrophils 65, Band Neutrophils 14H, Lymphocytes (Manual) 15L, Monocytes (Manual) 4, Eosinophils (Manual) 1, Atypical Lymphocytes 1, Anisocytosis 1+, Macrocytosis 2+, Platelet Estimate DECREASED, Immature Platelet Fraction 4.9, Prothrombin Time 12.2, Prothromb Time International Ratio 0.89, Activated Partial Thromboplast Time 36.6, Anion Gap 6L, Glomerular Filtration Rate > 60.0, Calcium Level 8.8, Total Bilirubin 0.3, Direct Bilirubin 0.1, Aspartate Amino Transf (AST/SGOT) 9, Alanine Aminotransferase (ALT/SGPT) 20, Alkaline Phosphatase 67, Total Protein 6.3L, Albumin 3.2, Albumin/Globulin Ratio 1.0 05/16/20 19:22: Coronavirus (COVID-19)(PCR) NEGATIVE, Influenza Type A (RT-PCR) NEGATIVE, Influenza Type B (RT-PCR) NEGATIVE, Respiratory Syncytial Virus (PCR) NEGATIVE 05/16/20 22:48: Nucleated Red Blood Cells % (auto) 0.0, Activated Partial Thromboplast Time 76.1H 05/17/20 05:24: Nucleated Red Blood Cells % (auto) 0.0, Activated Partial Thromboplast Time 91.7H, Anion Gap 6L, Glomerular Filtration Rate > 60.0, Calcium Level 8.6L, Total Bilirubin 0.3, Aspartate Amino Transf (AST/SGOT) 7, Alanine Aminotransferase (ALT/SGPT) 16, Alkaline Phosphatase 57, Total Protein 6.1L, Albumin 2.8L, Albumin/Globulin Ratio 0.8 CBC/BMP Laboratory Tests 05/16/20 15:17 05/16/20 22:48 05/17/20 05:24 Current Medications Current Medications Medications (Trade) Dose Ordered Sig/Shayla Route PRN Reason Start Time Stop Time Status Last Admin Dose Admin Acetaminophen (Tylenol Tab) 650 mg Q4HP PRN PO PAIN OR FEVER 05/16/20 18:15 Acetaminophen (Tylenol Tab) 650 mg Q4HP PRN PO PAIN OR FEVER 05/16/20 18:15 UNV Heparin Sodium (Porcine) (Heparin) ASDIRECTED PRN IV SEE LABEL COMMENTS 05/16/20 17:15 Heparin Sodium (Porcine) 31119 units/IV Miscellaneous Supplies 250 ml @ 10 mls/hr Q24H IV 05/16/20 16:17 05/16/20 21:00 DC 05/16/20 16:57 Heparin Sodium (Porcine) 80115 units/IV Miscellaneous Supplies 250 ml @ 15 mls/hr [id number] IV 05/16/20 20:00 05/17/20 10:19 Home Med (Med Rec Complete!) ASDIRECTED XX 05/16/20 17:30 05/16/20 17:19 DC Non-Formulary Medication (Heparin Iv Rate Change Documentation ml/ Hr) ASDIRECTED XX 05/16/20 20:00 05/21/20 19:59 Ondansetron HCl (Zofran) 4 mg TID PRN PO nausea/vomiting 05/16/20 18:15 05/17/20 11:30 Tramadol HCl (Ultram) 50 mg Q6HP PRN PO MODERATE PAIN (PS 5-7) 05/16/20 18:15 05/17/20 00:36 Trazodone HCl (Desyrel) 200 mg QHS PO 05/16/20 21:00 05/16/20 21:15 Allergies Coded Allergies: No Known Allergies (Unverified , 02/19/18) Christiana Browning MD May 17, 2020 15:16
--- NOTE | 2020-05-17 16:28 | REP ---
INDICATION: left neck nodule, new. R/o DVT. COMPARISON: Comparison is made with PET-CT images from March 27, 2020.. TECHNIQUE: Targeted sonographic scanning. FINDINGS: Scanning in the region of the palpable abnormality demonstrates a small hypoechoic nodule in the subcutaneous fat measuring 0.7 x 0.2 x 0.4 cm. This is nonspecific. IMPRESSION: Small subcutaneous nodule in the left neck at the site of the palpable abnormality 0.7 cm in greatest diameter. Nonspecific. <Electronically signed by Jesse Saldivar > 05/17/20 [id number]
[2020-05-17] MEDS ORDERED: DOCUSATE SOD LIQ 100MG/10ML UDC PO SCH (21:00)
[2020-05-17 22:00] VITALS: BP 112/66
[2020-05-17] MEDS ORDERED: PROMETHAZINE INJ 25 MG/ML VIAL (J2550) IV ONE (22:00)
[2020-05-17] MEDS: DOCUSATE SODIUM 100MG CAPSULE PO SCH (22:22)
[2020-05-17] MEDS: MIRALAX *UNIT DOSE* 17GM PACKET PO PRN (22:22)
[2020-05-17] MEDS: ACETAMINOPHEN TAB 650MG DOSE (2X325MG) PO PRN (22:23)
[2020-05-18] MEDS: traMADol 50 MG TAB PO PRN ×2 (00:33→23:35)
[2020-05-18] MEDS: traZODone 100 MG TAB PO SCH ×2 (00:33→23:34)
[2020-05-18] MEDS: HEPARIN DRIP 25,000 UNITS in IV 1 EA IV SCH (01:25)
[2020-05-18 06:00] VITALS: BP 106/67
[2020-05-18 06:55] LABS: HEMATOCRIT 28.7 % (42.0-52.0); HEMOGLOBIN 9.7 g/dl (13.5-17.5); MEAN CORPUSCULAR HEMOGLOBIN 35.1 pg (27.0-33.0); MEAN CORPUSCULAR HGB CONC 33.8 g/dl (32.0-36.5); RED BLOOD COUNT 2.76 10^6/uL (4.30-6.10); WHITE BLOOD COUNT 4.3 10^3/uL (4.0-10.0)
[2020-05-18 07:01] LABS: PLATELET COUNT, AUTOMATED 67 10^3/uL (150-450)
[2020-05-18 07:23] LABS: ALBUMIN 2.8 GM/DL (3.2-5.2); BILIRUBIN,TOTAL 0.2 MG/DL (0.2-1.0); CALCIUM LEVEL 8.7 MG/DL (8.8-10.2); CREATININE FOR GFR 1.32 MG/DL (0.70-1.30); GLOMERULAR FILTRATION RATE 57.6 (>49); POTASSIUM SERUM 4.3 MEQ/L (3.5-5.1); TOTAL PROTEIN 6.4 GM/DL (6.4-8.2)
[2020-05-18] MEDS: DOCUSATE SODIUM 100MG CAPSULE PO SCH ×2 (08:48→21:18)
[2020-05-18] MEDS: ACETAMINOPHEN TAB 650MG DOSE (2X325MG) PO PRN ×3 (08:48→21:20)
[2020-05-18] MEDS: MIRALAX *UNIT DOSE* 17GM PACKET PO PRN (08:48)
[2020-05-18] MEDS: ONDANSETRON 4 MG TAB PO PRN ×2 (08:48→16:31)
[2020-05-18] MEDS ORDERED: LOVE1INJ SC (10:40)
[2020-05-18] MEDS: NS 1,000 ML IV SCH ×2 (11:59→21:18)
[2020-05-18 14:00] VITALS: BP 124/69
[2020-05-18 14:02] LABS: BLOOD UREA NITROGEN 20 MG/DL (7-18); CALCIUM LEVEL 8.6 MG/DL (8.8-10.2); CARBON DIOXIDE LEVEL 27 MEQ/L (21-32); CHLORIDE LEVEL 104 MEQ/L (98-107); CREATININE FOR GFR 1.23 MG/DL (0.70-1.30); GLOMERULAR FILTRATION RATE > 60.0 (>49); GLUCOSE, FASTING 84 MG/DL (70-100); POTASSIUM SERUM 4.5 MEQ/L (3.5-5.1); SODIUM LEVEL 139 MEQ/L (136-145)
--- NOTE | 2020-05-18 17:02 | IPNPDOC ---
Date Seen The patient was seen on 05/18/20. Progress Note SUBJECTIVE: US left neck: Small subcutaneous nodule in the left neck at the site of the palpable abnormality 0.7 cm in greatest diameter, nonspecific. Swelling persists on right neck/upper chest. Denies chest pain, incr SOB. OBJECTIVE: PHYSICAL EXAMINATION: VS: stable , please see below CONSTITUTIONAL: No acute distress, resting comfortably, AAO x 3 EYES: PERRLA, EOM intact HENT, MOUTH: Normocephalic, atraumatic, moist mucous membranes, alopecia NECK: swelling of right neck, right upper chest- tender to touch, no erythema. no lymphadenopathy, no carotid bruit. New left neck nodule, rubbery, able to be moved persists CV: Regular rate and rhythm, S1S2 normal, no murmurs/rubs/gallops RESPIRATORY: Clear to auscultation bilaterally, no rales/rhonchi/wheezes GI: BS positive in 4 quadrants, soft, nontender, nondistended, no rebound or guarding, no organomegaly : Deferred MUSCULOSKELETAL: Normal ROM. No cyanosis, clubbing, swelling, joint deformity, extremity edema INTEGUMENTARY: Intact, no rashes, no lesions, no erythema NEUROLOGIC: Cranial Nerves II-XII are intact, no focal deficits PSYCHIATRIC: Mood and affect are normal LABORATORY DATA: Please see below IMAGING: Thyroid/ST neck US: Small subcutaneous nodule in the left neck at the site of the palpable abnorma lity 0.7 cm in greatest diameter. Nonspecific. US RUE: Occlusive thrombus distal right jugular vein, adjacent subclavian vein and central aspect of axillary vein. Partial thrombus of the more superior right jugular vein where a central venous catheter enters. ASSESSMENT: 69-year-old male with past medical history of small cell lung cancer with metastasis to the brain status post radiation and chemotherapy, COPD and prostate cancer status post radiation admitted for new occlusive thrombus distal right jugular vein, adjacent subclavian vein and central aspect of axillary vein, partial thrombus of the more superior right jugular vein requiring IV anticoagulation. PLAN: DVT right upper chest/neck likely 2/2 to right chest port -US RUE: new occlusive thrombus distal right jugular vein, adjacent subclavian vein and central aspect of axillary vein, partial thrombus of the more superior right jugular vein requiring IV anticoagulation. -Dr. Quiles, keep port, heparinize -D/cing heparin gtt this evening, going to get first dose lovenox SC tonight now that Cr wnl with IVFs -Will need teaching on this tonight and in the AM -Lovenox shots sent to [facility], picked up by daughter this afternoon -F/u AM labs, monitor for s/s of bleeding -Pain control PRN Left neck nodule, new since admission -US above, has not worsened in size since 05/17/20 -F/u with heme/onc as o/p SHERRI likely 2/2 to decreased PO intake, prerenal -Cr 1.32, improved in the afternoon with IVFs -Keep IV fluids at 85 cc/hr overnight -Encouraged to hydrate during the time awake -F/u AM labs Small cell Lung CA with metastasis to brain s/p radiation and currently undergoing chemotherapy -Went for radiation again today -S/p 10 doses of radiation to the brain, currently 16/40 doses of radiation to t he lungs -Chemo: finished 2/3 rounds 2 weeks ago, to resume in next couple weeks -Follows with Dr. Rodriguez, heme/onc [facility] COPD -Stable -Can add Albuterol PRN Prostate CA s/p radiation -Remission Tobacco use -Nicotine patch DVT px -Lovenox BID DISPOSITION: Plan is to discharge home in the AM with SC heparin shots BID. F/u with Dr. Quiles after discharge. VS, I&O, 24H, Fishbone Vital Signs/I&O Vital Signs Date Time Temp Pulse Resp B/P (MAP) Pulse Ox O2 Delivery O2 Flow Rate FiO2 05/18/20 14:00 98.4 76 24 124/69 (87) 99 Room Air I&O- Last 24 Hours up to 6 AM 05/18/20 06:00 Intake Total 1489 ml Output Total 550 ml Balance 939 ml Laboratory Data 24H LABS Laboratory Tests 2 05/18/20 00:22: Activated Partial Thromboplast Time 100.7H 05/18/20 06:44: Activated Partial Thromboplast Time 89.2H, Nucleated Red Blood Cells % (auto) 0.0, Immature Platelet Fraction 3.9, Anion Gap 6L, Glomerular Filtration Rate 57.6, Calcium Level 8.7L, Total Bilirubin 0.2, Aspartate Amino Transf (AST/SGOT) 9, Alanine Aminotransferase (ALT/SGPT) 18, Alkaline Phosphatase 59, Total Protein 6.4, Albumin 2.8L, Albumin/Globulin Ratio 0.8 05/18/20 12:53: Anion Gap 8, Glomerular Filtration Rate > 60.0, Calcium Level 8.6L CBC/BMP Laboratory Tests 05/18/20 06:44 05/18/20 12:53 Microbiology Microbiology 05/18/20 Stool Occult Blood (KIT) - Final, Complete Current Medications Current Medications Medications (Trade) Dose Ordered Sig/Shayla Route PRN Reason Start Time Stop Time Status Last Admin Dose Admin Acetaminophen (Tylenol Tab) 650 mg Q4HP PRN PO PAIN OR FEVER 05/16/20 18:15 05/18/20 16:31 Acetaminophen (Tylenol Tab) 650 mg Q4HP PRN PO PAIN OR FEVER 05/16/20 18:15 UNV Docusate Sodium (Colace Liquid) 100 mg BID PO 05/17/20 21:00 05/17/20 21:59 DC Docusate Sodium (Colace) 100 mg BID PO 05/17/20 21:00 05/18/20 08:48 Enoxaparin Sodium (Lovenox) 100 mg Q12H SC 05/18/20 21:00 Heparin Sodium (Porcine) (Heparin) ASDIRECTED PRN IV SEE LABEL COMMENTS 05/16/20 17:15 05/18/20 16:59 DC 05/17/20 18:22 Heparin Sodium (Porcine) 46500 units/IV Miscellaneous Supplies 250 ml @ 10 mls/hr Q24H IV 05/16/20 16:17 05/16/20 21:00 DC 05/16/20 16:57 Heparin Sodium (Porcine) 39689 units/IV Miscellaneous Supplies 250 ml @ 15 mls/hr [id number] IV 05/16/20 20:00 05/18/20 16:59 DC 05/18/20 01:25 Home Med (Med Rec Complete!) ASDIRECTED XX 05/16/20 17:30 05/16/20 17:19 DC Non-Formulary Medication (Heparin Iv Rate Change Documentation ml/ Hr) ASDIRECTED XX 05/16/20 20:00 05/18/20 16:59 DC 05/17/20 18:23 Ondansetron HCl (Zofran) 4 mg TID PRN PO nausea/vomiting 05/16/20 18:15 05/18/20 16:31 Polyethylene Glycol (Miralax) 1 pkt DAILYPRN PRN PO CONSTIPATION 05/17/20 22:00 05/18/20 08:48 Sodium Chloride 1,000 ml @ 85 mls/hr [id number] IV 05/18/20 08:30 05/18/20 11:59 Tramadol HCl (Ultram) 50 mg Q6HP PRN PO MODERATE PAIN (PS 5-7) 05/16/20 18:15 05/18/20 00:33 Trazodone HCl (Desyrel) 200 mg QHS PO 05/16/20 21:00 05/18/20 00:33 Allergies Coded Allergies: No Known Allergies (Unverified , 02/19/18) Christiana Browning MD May 18, 2020 17:02
[2020-05-18] MEDS: ENOXAPARIN 100MG/1ML SYRINGE (J1650 PER 10MG) SC SCH (21:19)
[2020-05-18 22:00] VITALS: BP 126/64
[2020-05-19 06:00] VITALS: BP 146/67
[2020-05-19 06:33] LABS: HEMATOCRIT 28.9 % (42.0-52.0); HEMOGLOBIN 9.5 g/dl (13.5-17.5); MEAN CORPUSCULAR HEMOGLOBIN 34.4 pg (27.0-33.0); MEAN CORPUSCULAR HGB CONC 32.9 g/dl (32.0-36.5); MEAN CORPUSCULAR VOLUME 104.7 fl (80.0-96.0); RED BLOOD COUNT 2.76 10^6/uL (4.30-6.10); WHITE BLOOD COUNT 4.1 10^3/uL (4.0-10.0)
[2020-05-19] MEDS: ONDANSETRON 4 MG TAB PO PRN (06:34)
[2020-05-19] MEDS: ACETAMINOPHEN TAB 650MG DOSE (2X325MG) PO PRN (06:35)
[2020-05-19 06:36] LABS: PLATELET COUNT, AUTOMATED 95 10^3/uL (150-450)
[2020-05-19 06:49] LABS: ALBUMIN 2.8 GM/DL (3.2-5.2); ALT/SGPT 19 U/L (12-78); BILIRUBIN,TOTAL 0.2 MG/DL (0.2-1.0); BLOOD UREA NITROGEN 14 MG/DL (7-18); CALCIUM LEVEL 8.4 MG/DL (8.8-10.2); CARBON DIOXIDE LEVEL 28 MEQ/L (21-32); CHLORIDE LEVEL 107 MEQ/L (98-107); CREATININE FOR GFR 1.15 MG/DL (0.70-1.30); GLOMERULAR FILTRATION RATE > 60.0 (>49); GLUCOSE, FASTING 85 MG/DL (70-100); POTASSIUM SERUM 4.6 MEQ/L (3.5-5.1); SODIUM LEVEL 140 MEQ/L (136-145); TOTAL PROTEIN 6.5 GM/DL (6.4-8.2)
[2020-05-19] MEDS ORDERED: ACET1TAB55 PO (08:49)
[2020-05-19] MEDS ORDERED: TRAM50TA2 PO (08:49)
[2020-05-19] MEDS ORDERED: PEG1POW PO (08:49)
[2020-05-19] MEDS ORDERED: DOK1CAP7 PO (08:49)
[2020-05-19] MEDS: DOCUSATE SODIUM 100MG CAPSULE PO SCH (09:08)
[2020-05-19] MEDS: ENOXAPARIN 100MG/1ML SYRINGE (J1650 PER 10MG) SC SCH (09:10)
--- NOTE | 2020-05-19 15:50 | DS.PDOC ---
Discharge Summary General Date of Admission May 16, 2020 at 17:07 Date of Discharge 05/19/20 Attending Physician: Christiana Browning MD Discharge Summary HISTORY OF PRESENT ILLNESS: Patient is an 69-year-old male with past medical history of small cell lung cancer with metastasis to the brain status post radiation and chemotherapy, chronic thrombocytopenia likely 2/2 to chemotherapy, COPD and prostate cancer status post radiation who presented to [facility] today after being sent in from his doctor's office for right neck swelling and pain. The patient was at radiation today and was found to have a large right neck, right upper chest swelling which occurred acutely today. An ultrasound was done showing a right subclavian, right axillary and right subclavian DVT. The patient states a right chest port was placed on 04/05/2020 at the [facility] [place] and immediately he felt some pain. He states 2 weeks ago he noticed right upper chest pain with movement of his arm which was bothersome. Today he noticed acute swelling on the right side of the neck and right upper chest. This is when he brought it up to his radiation oncologist admitted the outpatient ultrasound showing the results already mentioned. He was sent into the emergency room to be further evaluated. The patient admits to having occasional shortness of breath, coughing, nausea, diarrhea with some weight loss since starting chemotherapy and radiation but denies chest pain, fevers, chills. The emergency room, vital signs were stable. The ultrasound findings were discussed with Dr. Quiles, interventional radiology. She recommended admitting for heparin drip and monitoring for decreased swelling of the right side of the neck and face. She states that the patient can be discharged with Lovenox when the swelling begins to go down. There were no other acute complaints or abnormal findings on exam. The patient was admitted for occlusive thrombus distal right jugular vein, adjacent subclavian vein and central aspect of axillary vein, partial thrombus of the more superior right jugular vein requiring anticoagulation. HOSPITAL COURSE: Patient was kept on heparin gtt for two days. On hospital day two, Cr increased some, IVFs were started. Later that day Cr had normalized and heparin gtt was stopped. He was transitioned to SC heparin BID. Patient received lovenox teaching by nursing and it was arranged that lovenox shots sent to [facility], picked up by daughter that afternoon. PLTs remained stable and actually improved some, no s/s of bleeding. He was encouraged to drink more fluids during the day, at least 110-120 ounces of water daily which would help protect his kidneys and help with constipation. New left neck nodule was seen on 05/17/20, did not change during his stay. US of left showed nodule was nonspecific, he is to f/u with heme/onc about this. He also received 2 doses of chest radiation during his stay. On 05/19/20, after two times practicing lovenox shots, patient was discharged home with instructions to call Dr. Quiles's office to schedule f/u with her after holiday weekend. He had no acute complaints. PAST MEDICAL HISTORY: Small cell Lung CA with metastasis to brain s/p radiation and currently undergoing chemotherapy COPD prostate CA s/p radiation PAST SURGICAL HISTORY: Right chest port placement 03/2020 Right wrist surgery FAMILY HISTORY: Father: emphysema. at 80 y/o Mother: breast cancer. at 71 y/o SOCIAL HISTORY: Smoker for 52 years, 2 packs per day. Currently still smokes. Thinks alcohol socially during the week. History of drug addiction but has been clean for over 30 years. He lives alone in [facility]. He follows with the [facility] in [place] for his primary care. His heme/onc Dr. is Dr. Rodriguez, Dr. Dubois for radiation oncology. ALLERGIES: Please see below. DISCHARGE MEDICATIONS: Please see below. PHYSICAL EXAMINATION: VS: stable , please see below CONSTITUTIONAL: No acute distress, resting comfortably, AAO x 3 EYES: PERRLA, EOM intact HENT, MOUTH: Normocephalic, atraumatic, moist mucous membranes, alopecia NECK: decreased swelling of right neck, right upper chest- tender to touch, no erythema. no lymphadenopathy, no carotid bruit. left neck nodule, rubbery, able to be moved CV: Regular rate and rhythm, S1S2 normal, no murmurs/rubs/gallops RESPIRATORY: Clear to auscultation bilaterally, no rales/rhonchi/wheezes GI: BS positive in 4 quadrants, soft, nontender, nondistended, no rebound or guarding, no organomegaly : Deferred MUSCULOSKELETAL: Normal ROM. No cyanosis, clubbing, swelling, joint deformity, extremity edema INTEGUMENTARY: Intact, no rashes, no lesions, no erythema NEUROLOGIC: Cranial Nerves II-XII are intact, no focal deficits PSYCHIATRIC: Mood and affect are normal LABORATORY DATA: Please see below IMAGING: Thyroid/ST neck US: Small subcutaneous nodule in the left neck at the site of the palpable abnormality 0.7 cm in greatest diameter. Nonspecific. US RUE: Occlusive thrombus distal right jugular vein, adjacent subclavian vein and ce ntral aspect of axillary vein. Partial thrombus of the more superior right jugular vein where a central venous catheter enters. ASSESSMENT: 69-year-old male with past medical history of small cell lung cancer with metastasis to the brain status post radiation and chemotherapy, COPD and prostate cancer status post radiation admitted for new occlusive thrombus distal right jugular vein, adjacent subclavian vein and central aspect of axillary vein, partial thrombus of the more superior right jugular vein requiring IV anticoagulation. PLAN: DVT right upper chest/neck likely 2/2 to right chest port -US RUE: new occlusive thrombus distal right jugular vein, adjacent subclavian vein and central aspect of axillary vein, partial thrombus of the more superior right jugular vein requiring IV anticoagulation. -Dr. Quiles: keep port, heparinize -D/dayo heparin gtt, tolerating SC heparin shots -Received lovenox teaching -Lovenox shots sent to [facility], picked up by daughter 05/18/20 -Patient to follow up with Dr. Quiles after holiday weekend, clinic # given to him at discharge. Left neck nodule, new since admission -US above, has not worsened in size since 05/17/20 -F/u with heme/onc as o/p SHERRI likely 2/2 to decreased PO intake, prerenal- resolved -Cr wnl, improved with IVFs -Encouraged to hydrate during the day, admits to not being a fan of water -Would advise PCP to monitor closely while on lovenox SC Small cell Lung CA with metastasis to brain s/p radiation and currently undergoing chemotherapy -S/p 10 doses of radiation to the brain, currently 16/40 doses of radiation to the lungs -Chemo: finished 2/3 rounds 2 weeks ago, to resume in next couple weeks -Follows with Dr. Rodriguez, heme/onc [facility] COPD -Stable -Can add Albuterol PRN Prostate CA s/p radiation -Remission Tobacco use -Nicotine patch DVT px -Lovenox BID DISPOSITION: Discharge today with SC heparin shots BID. F/u with Dr. Quiles after discharge, heme/onc TIME SPENT ON DISCHARGE: 35 minutes. Vital Signs/I&Os Vital Signs Date Time Temp Pulse Resp B/P (MAP) Pulse Ox O2 Delivery O2 Flow Rate FiO2 05/19/20 06:00 97.9 83 17 146/67 (93) 99 Room Air I&O- Last 24 Hours up to 6 AM 05/19/20 06:00 Intake Total 3390 ml Balance 3390 ml Laboratory Data Labs 24H Laboratory Tests 2 05/19/20 06:07: Nucleated Red Blood Cells % (auto) 0.0, Anion Gap 5L, Glomerular Filtration Rate > 60.0, Calcium Level 8.4L, Total Bilirubin 0.2, Aspartate Amino Transf (AST/SGOT) 7, Alanine Aminotransferase (ALT/SGPT) 19, Alkaline Phosphatase 59, Total Protein 6.5, Albumin 2.8L, Albumin/Globulin Ratio 0.8 CBC/BMP Laboratory Tests 05/19/20 06:07 Microbiology Microbiology 05/18/20 Stool Occult Blood (KIT) - Final, Complete Discharge Medications Scheduled Docusate Sodium (Dok) 100 Mg Capsule, 100 MG PO BID Enoxaparin Sodium (Lovenox) 40 Mg/0.4 Ml Syringe, 100 MG SC BID Trazodone HCl (Trazodone HCl) 50 Mg Tab, 200 MG PO QHS, (Reported) RX STATES UP TO 5 TABLETS QHS PRN Scheduled PRN Acetaminophen (Acetaminophen) 325 Mg Tablet, 650 MG PO Q6HP PRN for PAIN OR FEVER Ondansetron HCl (Ondansetron HCl) 4 Mg Tablet, 1 TAB PO TID PRN for nausea/vomiting Polyethylene Glycol 3350 (Polyethylene Glycol 3350) 17 Gm Powd.pack, 1 PKT PO DAILYPRN PRN for CONSTIPATION Tramadol HCl (Tramadol HCl) 50 Mg Tablet, 50 MG PO Q8HP PRN for MODERATE PAIN (PS 5-7) Allergies Coded Allergies: No Known Allergies (Unverified , 02/19/18) Christiana Browning MD May 19, 2020 15:50
== END 2020-05-19 11:00 | disposition home or self-care (01) | DRG 315 ==
LOC: M ED 13:31 → M ED INP 17:07 → M MSPAV 05-17 00:13
PROVIDERS: ADMIT Internal Medicine; ATTEND Internal Medicine
DX: T82.868A Thrombosis due to vascular prosthetic devices, implants and grafts, initial encounter (principal); C34.11 Malignant neoplasm of upper lobe, right bronchus or lung; I82.C11 Acute embolism and thrombosis of right internal jugular vein; C34.90 Malignant neoplasm of unspecified part of unspecified bronchus or lung; C79.31 Secondary malignant neoplasm of brain; N17.9 Acute kidney failure, unspecified; I82.B11 Acute embolism and thrombosis of right subclavian vein; I82.A11 Acute embolism and thrombosis of right axillary vein; R22.1 Localized swelling, mass and lump, neck; J44.9 Chronic obstructive pulmonary disease, unspecified; D69.6 Thrombocytopenia, unspecified; F17.200 Nicotine dependence, unspecified, uncomplicated; C61 Malignant neoplasm of prostate; Z79.899 Other long term (current) drug therapy; E04.1 Nontoxic single thyroid nodule; Y83.1 Surgical operation with implant of artificial internal device as the cause of abnormal reaction of the patient, or of later complication, without mention of misadventure at the time of the procedure

== ENCOUNTER → 2020-05-16 | Outpatient (CLI) | payer OTHER ==
[~2020-05-16] MED LIST changes: +LOVE1INJ SC; +ONDA-83 PO
--- NOTE | 2020-05-16 13:05 | REP ---
INDICATION: MALIGNANT NEOPLASM OF UPPER LOBE COMPARISON: None. TECHNIQUE: Real time compression and duplex Doppler evaluation of the Right upper extremity deep venous system is performed. FINDINGS: Occlusive thrombus is seen in the distal right jugular vein, extending into the adjacent subclavian vein peripherally and into the central aspect of the axillary vein. Central venous catheter is seen entering the more superior right jugular vein where there is nonocclusive thrombus. Stagnant flow is seen in the more distal right axillary vein. No thrombus is seen in the right brachial veins. IMPRESSION: Occlusive thrombus distal right jugular vein, adjacent subclavian vein and central aspect of axillary vein. Partial thrombus of the more superior right jugular vein where a central venous catheter enters. <Electronically signed by Jasper Wheeler > 05/16/20 [id number]
== END ==
LOC: M RAD 11:46
PROVIDERS: ATTEND General Practice
DX: I82.601 Acute embolism and thrombosis of unspecified veins of right upper extremity (principal); C34.11 Malignant neoplasm of upper lobe, right bronchus or lung; R22.1 Localized swelling, mass and lump, neck

== ENCOUNTER 2020-06-01 10:45 | Outpatient (RCR) | payer OTHER ==
--- NOTE | 2020-05-16 11:22 | RADENCPD ---
Date/Time of Encounter Date of Encounter: May 16, 2020 Time of Encounter: 11:18 Encounter Mr. Hudson asked to be seen after RT today for concern of swelling in the right neck for the last 2 days. He states he noted onset after arm-wrestling the other night. Thinks his infusaport may have become dislodged. He has mild pain at the site of swelling as his only complaint. He denies fevers, chills, malaise, SOB, CP. On exam there are no overlying skin changes. There is a softly distended swollen area in the right supraclavicular fossa. It is mildly tender to palpation. There is no induration or warmth. No palpable venous cording. Assessment: I am concerned his port has become dislodged from arm wrestling. The alternative of clot or charlene progression should also be excluded. I will order a STAT ultrasound of this site and direct him appropriately from there. CHRIS ECKERT MD May 16, 2020 11:22
[~2020-06-01 10:45] MED LIST changes: +ACET1TAB55 PO; +DEXA4TA PO; +DOK1CAP7 PO; +LORA1TAB4 PO; +LOVE1INJ SC; +POLY17PO18 PO; +PROC25SU24 PR; +TRAM50TA2 PO
[2020-06-04] MEDS ORDERED: ENOX100I3 SC (16:45)
[2020-06-04] MEDS ORDERED: APAP325T4 PO (16:45)
[2020-06-04] MEDS ORDERED: TRAM50TA2 PO (16:45)
[2020-06-04] MEDS ORDERED: AUGM875T28 PO (17:47)
== END 2020-06-03 ==
LOC: M ONCR 10:45
PROVIDERS: ATTEND General Practice
DX: C34.11 Malignant neoplasm of upper lobe, right bronchus or lung (principal); C79.31 Secondary malignant neoplasm of brain

== ENCOUNTER 2020-06-04 11:29 | Inpatient (IN) | payer OTHER ==
[~2020-06-04] VITALS: Ht 182.9 cm; Wt 93.0 kg
[2020-06-04 12:54] LABS: HEMATOCRIT 25.6 % (42.0-52.0); HEMOGLOBIN 8.8 g/dl (13.5-17.5); MEAN CORPUSCULAR HEMOGLOBIN 35.9 pg (27.0-33.0); MEAN CORPUSCULAR HGB CONC 34.4 g/dl (32.0-36.5); MEAN CORPUSCULAR VOLUME 104.5 fl (80.0-96.0); RED BLOOD COUNT 2.45 10^6/uL (4.30-6.10); WHITE BLOOD COUNT 4.2 10^3/uL (4.0-10.0)
[2020-06-04 13:20] LABS: PLATELET COUNT, AUTOMATED 25 10^3/uL (150-450)
[2020-06-04 13:26] LABS: LYMPHOCYTES 7 % (16-44); MONOCYTES 6 % (0-5); NEUTROPHILS 87 % (28-66); PLATELET ESTIMATE MARKED DECREASE (NORMAL)
[2020-06-04 13:28] LABS: ALBUMIN 3.3 GM/DL (3.2-5.2); ALT/SGPT 13 U/L (12-78); BILIRUBIN,DIRECT 0.2 MG/DL (0.0-0.2); BILIRUBIN,TOTAL 0.6 MG/DL (0.2-1.0); CK-MB VALUE MASS < 1.0 NG/ML (<3.6); CPK CREATINE PHOSPHOKINASE 26 U/L (39-308); LIPASE 60 U/L (73-393); MB/CK RELATIVE INDEX 3.85 (< OR =4); TOTAL PROTEIN 6.2 GM/DL (6.4-8.2); TROPONIN I < 0.02 NG/ML (< 0.10)
[2020-06-04] MEDS ORDERED: NS 1,000 ML IV ONE (14:15)
[2020-06-04] MEDS ORDERED: ENOXAPARIN 100MG/1ML SYRINGE (J1650 PER 10MG) SC ONE (14:20)
--- NOTE | 2020-06-04 14:30 | REP ---
INDICATION: fever COMPARISON: 02/19/2018 TECHNIQUE: Portable AP view of the chest FINDINGS: Very subtle bibasilar airspace disease cannot be excluded and should be correlated with auscultation and physical examination. No discrete focal consolidation. No effusion. No pneumothorax. Mediastinum and cardiac silhouette are normal. [id number] identified with tip in the SVC/right atrium. Skeletal structures intact. IMPRESSION: Subtle bibasilar airspace disease (right greater than left) <Electronically signed by Marek Mckeon > 06/04/20 1428
[2020-06-04 14:38] LABS: CREATININE FOR GFR 1.42 MG/DL (0.70-1.30); GLOMERULAR FILTRATION RATE 52.9 (>49)
[2020-06-04] MEDS ORDERED: ISOVUE-370 76% 100ML VIAL As Ordered ONE (14:43)
--- NOTE | 2020-06-04 15:14 | REP ---
INDICATION: vomting, lower abdominal pain. COMPARISON: 08/23/2019 TECHNIQUE: Axial contrast-enhanced images from the lung bases to the pubic symphysis using 100 cc Isovue 370 intravenous contrast material. Coronal and sagittal reformations obtained. This CT examination was performed using the following dose reduction techniques: Automated exposure control, adjustment of mA and/or kv according to the patient's size, and the use of iterative reconstruction technique. FINDINGS: Liver, spleen, pancreas, gallbladder, bilateral adrenal glands and kidneys are stable and essentially normal. Incidental small renal cysts noted. The enteric system is without obstruction or acute inflammatory process. Normal terminal ileum and appendix identified in the right lower quadrant. Colonic and sigmoid diverticulosis noted without acute diverticulitis. Pelvis demonstrates normal bladder and enlarged prostate gland with mass effect on the base of the bladder. 2.9 cm fat containing periumbilical hernia is unchanged. Partially thrombosed infrarenal abdominal aortic aneurysm measures 3.5 cm maximal diameter. No ascites. No free air. No adenopathy. Skeletal structures demonstrate degenerative changes without acute osseous abnormality. IMPRESSION: 1. No obvious acute abdominopelvic pathology appreciated. No ascites, focal inflammatory stranding, or adenopathy. 2. Diverticulosis without acute diverticulitis. No bowel obstruction or perforation. 3. Partially thrombosed chronic infrarenal abdominal aortic aneurysm measures 3.5 cm maximal diameter. 4. Further nonacute findings as described above. <Electronically signed by Marek Mckeon > 06/04/20 0716
[2020-06-04 16:41] LABS: BLOOD UREA NITROGEN 26 MG/DL (7-18); CALCIUM LEVEL 8.5 MG/DL (8.8-10.2); CARBON DIOXIDE LEVEL 25 MEQ/L (21-32); CHLORIDE LEVEL 99 MEQ/L (98-107); GLUCOSE, FASTING 107 MG/DL (70-100); SODIUM LEVEL 132 MEQ/L (136-145)
[2020-06-04] MEDS ORDERED: ENOX100I3 SC (16:45)
[2020-06-04] MEDS ORDERED: APAP325T4 PO (16:45)
[2020-06-04] MEDS ORDERED: TRAM50TA2 PO (16:45)
[2020-06-04] MEDS ORDERED: ACETAMINOPHEN TAB 650MG DOSE (2X325MG) PO PRN ×2 (17:15→17:25)
[2020-06-04] MEDS ORDERED: MIRALAX *UNIT DOSE* 17GM PACKET PO PRN (17:20)
[2020-06-04] MEDS: LR 1,000 ML IV SCH (17:20)
[2020-06-04] MEDS ORDERED: ONDANSETRON 4 MG TAB PO PRN (17:20)
[2020-06-04] MEDS ORDERED: AUGMENTIN 875 MG TAB PO ONE (17:45)
[2020-06-04] MEDS ORDERED: AUGM875T28 PO (17:47)
--- NOTE | 2020-06-04 19:23 | HPEPDOC ---
[facility] Medical History & Physical Date of Admission Jun 04, 2020 Date of Service: Jun 04, 2020 Other Provider PCP: [facility] Clinic Attending Physician: TAO PEREZ DO History and Physical CHIEF COMPLAINT: Weakness, fatigue, nausea, vomiting, and perhaps fever although not documented since arrival at the ED. HISTORY OF PRESENT ILLNESS: The patient went to very [facility] earlier this morning to receive radiation for metastatic small cell lung cancer to the brain. Apparently he was found to have a temperature while there, although I have not been able to find out the number. Additionally he has been suffering from weakness, fatigue, nausea since he started to radiation and chemotherapy approximately 1.5 months ago, but he is also been vomiting more often lately, and having a terrible time keeping things down over the past few days. He was sent over to the emergency department for further evaluation. CODE STATUS: DNR/DNI PAST MEDICAL HISTORY: Small cell lung cancer with metastasis to the brain status post radiation and chemotherapy, follows with Dr. Sin (radiation) and Dr. Rodriguez (hematology/oncology) at the [facility] COPD Prostate cancer status post radiation in 2008, no recurrence DVT and right subclavian and right axillary vein status post port placement, follows with Dr. Quiles PAST SURGICAL HISTORY: Right chest port placement 03/25/2020 Right wrist surgery Multiple fractures to the left arm many years ago SOCIAL HISTORY: Smoked 2 packs per day for at least the past 50 years, continues to smoke on a daily basis. Drinks alcohol only on a social basis, perhaps a couple beers a week. Has remote history of drug addiction, but has been clean for 30+ years. Lives alone [facility]. Follows with the OR for his primary care. FAMILY HISTORY: Father had emphysema, 80 years old Mother had breast cancer at 71 years old REVIEW OF SYSTEMS: Constitutional: Patient denies febrile at this time, denied chills, night sweats. HEENT: Patient denies blurred or double vision, transient visual disturbances, postnasal drip, epistaxis, sore throat, difficulty chewing or swallowing food. Cardiovascular: Patient denies chest discomfort/pain, palpitations, exertional dyspnea, orthopnea, edema of the extremities, claudication. The swelling on the right side of his neck secondary to DVT is significantly tender. Respiratory: Patient denies dyspnea, wheezing, cough, hemoptysis, sputum production. Gastrointestinal: Patient denies admits to nausea and vomiting. Denies diarrhea, constipation, abdominal pain, melena, hematochezia, hematemesis, jaundice. PHYSICAL EXAMINATION: General: Awake, alert, oriented 3. He is a most excellent historian. HEENT: Head normocephalic atraumatic, conjunctiva are pink, sclera are nonicteric, buccal mucosa is pink and moist with no lesions in the oropharynx. Hearing is grossly intact to conversation. Respiratory: Clear to auscultation bilaterally with no wheezes, rales, or rhonchi. Cardiovascular: Regular rate and rhythm, with no rubs, gallops, or murmur. Abdomen: Soft, nontender, nondistended, no hepatosplenomegaly appreciated. Bowel sounds present. Extremities: 2+ pulses in the radial and dorsalis pedis bilaterally. No evidence of clubbing or cyanosis. ELECTROCARDIOGRAM: Sinus rhythm IMAGING: Portable AP chest x-ray FINDINGS: Very subtle bibasilar airspace disease cannot be excluded and should be correlated with auscultation and physical examination. No discrete focal consolidation. No effusion. No pneumothorax. Mediastinum and cardiac silhouette are normal. [id number] identified with tip in the SVC/right atrium. Skeletal structures intact. CT the abdomen and pelvis without contrast IMPRESSION: 1. No obvious acute abdominopelvic pathology appreciated. No ascites, focal inflammatory stranding, or adenopathy. 2. Diverticulosis without acute diverticulitis. No bowel obstruction or perforation. 3. Partially thrombosed chronic infrarenal abdominal aortic aneurysm measures 3.5 cm maximal diameter. 4. Further nonacute findings as described above. ASSESSMENT/PLAN: Although the patient apparently had a fever earlier this morning, he does not have any documented fever while here. Also, he has normal white count, therefore we do not necessarily have to go down the path of febrile neutropenia at this point. Nevertheless will order blood cultures, urine cultures, respiratory panel in addition to the chest x-ray and CT of the abdomen and pelvis that was artery performed in the ED to look for a source of possible infection. He was given a single dose of Augmentin while in the emergency department, however until he spikes a fever or any of these investigations shows us a source of infection, will hold off on any further antibiotics at this time. At this point he certainly has prerenal azotemia secondary to dehydration, tertiary to significant nausea and vomiting, quaternary to treatment with ch emotherapy and radiation for his metastatic small cell lung cancer. Will begin rehydration with lactated Ringer's, and he will be provided with both Zofran ODT, and IV Zofran if necessary. He will be allowed to have a regular diet, and is welcome to eat whatever he is able to keep down. Recent history of right subclavian DVT. Continue treatment with therapeutic Lovenox (which will also services DVT prophylaxis) Vital Signs Vital Signs Date Time Temp Pulse Resp B/P (MAP) Pulse Ox O2 Delivery O2 Flow Rate FiO2 06/04/20 19:00 88 18 101/67 (78) 97 Room Air 06/04/20 11:47 98.4 Laboratory Data Labs 24H Laboratory Tests 2 06/04/20 11:58: Neutrophils (%) (Auto) , Nucleated Red Blood Cells % (auto) 0.0, Neutrophils 87H, Lymphocytes (Manual) 7L, Monocytes (Manual) 6H, Red Blood Cell Morphology NORMAL, Platelet Estimate MARKED DECREASE, Immature Platelet Fraction 7.6, Anion Gap 8, Glomerular Filtration Rate 52.9, Lactic Acid Level 1.5, Calcium Level 8.5L, Total Bilirubin 0.6, Direct Bilirubin 0.2, Aspartate Amino Transf (AST/SGOT) 5L, Alanine Aminotransferase (ALT/SGPT) 13, Alkaline Phosphatase 68, Total Creatine Kinase 26L, Creatine Kinase MB < 1.0, Creatine Kinase MB Relative Index 3.85, Troponin I < 0.02, Total Protein 6.2L, Albumin 3.3, Albumin/Globulin Ratio 1.1, Lipase 60L 06/04/20 16:58: Urine Color YELLOW, Urine Appearance CLEAR, Urine pH 6.0, Urine Specific [place] 1.045, Urine Protein NEGATIVE, Urine Glucose (UA) NEGATIVE, Urine Ketones NEGA TIVE, Urine Blood NEGATIVE, Urine Nitrite NEGATIVE, Urine Bilirubin NEGATIVE, Urine Urobilinogen 0.2, Urine Leukocyte Esterase NEGATIVE, Urine WBC (Auto) 1, Urine RBC (Auto) 1, Urine Hyaline Casts (Auto) 0, Urine Bacteria (Auto) NEGATIVE, Urine Squamous Epithelial Cells 1, Urine Mucus (Auto) SMALL, Urine Sperm (Auto) CBC/BMP Laboratory Tests 06/04/20 11:58 Microbiology Microbiology 06/04/20 Respiratory Virus Panel (PCR) (KIT) - Final, Complete 06/04/20 Blood Culture, Received Pending Home Medications Scheduled Dexamethasone (Dexamethasone) 4 Mg Tablet, 4 MG PO DAILY Enoxaparin Sodium (Enoxaparin Sodium) 100 Mg/1 Ml Syringe, 100 MG SC Q12H Prochlorperazine (Prochlorperazine) 25 Mg Supp.rect, 1 SUP NM Q8H Trazodone HCl (Trazodone HCl) 50 Mg Tab, 200 MG PO QHS RX STATES UP TO 5 TABLETS QHS PRN Scheduled PRN Acetaminophen (Acetaminophen) 325 Mg Tablet, 650 MG PO Q6H PRN for PAIN Lorazepam (Lorazepam) 1 Mg Tablet, 1 TAB PO BIDP PRN for ANXIETY Ondansetron HCl (Ondansetron HCl) 4 Mg Tablet, 1 TAB PO TID PRN for nausea/vomiting Polyethylene Glycol 3350 (Polyethylene Glycol 3350) 17 Gm Powd.pack, 1 PKT PO DAILYPRN PRN for CONSTIPATION Tramadol HCl (Tramadol HCl) 50 Mg Tablet, 50 MG PO Q8H PRN for PAIN Allergies Coded Allergies: No Known Allergies (Unverified , 02/19/18) A-FIB/CHADSVASC A-FIB History Current/History of A-Fib/PAF?: No TAO PEREZ DO Jun 04, 2020 19:23
--- NOTE | 2020-06-04 19:35 | ECGEPIP ---
[facility] - ED Test Date: 2020-06-04 Pat Name: DAVID BUTCHER Department: Room: - Gender: Male [employer]: : 1950 Requested By: Cal Torrez Order Number: [id number] Reading MD: Cal Torrez Measurements Intervals [place] Rate: 94 P: 51 NM: 196 QRS: 33 QRSD: 104 T: 39 QT: 338 QTc: 422 Interpretive Statements Normal sinus rhythm inferior infarct, probably old moderate intraventriular conduction delay NONSPECIFIC ST T WAVE CHANGES cw 02/19/[address] T WAVE CHANGES Electronically Signed on 06-04-2020 19:35:36 EST by Cal Torrez
[2020-06-04] MEDS ORDERED: PROCHLORPERAZINE 25 MG SUPP PR SCH (22:00)
[2020-06-04 22:22] VITALS: BP 109/67
[2020-06-04] MEDS: ONDANSETRON 4MG/2ML VIAL IV PRN (22:43)
[2020-06-04] MEDS: traMADol 50 MG TAB PO PRN (22:44)
[2020-06-04] MEDS: traZODone 100 MG TAB PO SCH (22:44)
[2020-06-05] MEDS ORDERED: ENOXAPARIN 100MG/1ML SYRINGE (J1650 PER 10MG) SC SCH (04:00)
[2020-06-05] MEDS: LR 1,000 ML IV SCH ×3 (04:50→20:57)
[2020-06-05 06:00] VITALS: BP 109/68
[2020-06-05 06:22] LABS: HEMATOCRIT 21.4 % (42.0-52.0); HEMOGLOBIN 7.2 g/dl (13.5-17.5); MEAN CORPUSCULAR HEMOGLOBIN 35.3 pg (27.0-33.0); MEAN CORPUSCULAR HGB CONC 33.6 g/dl (32.0-36.5); MEAN CORPUSCULAR VOLUME 104.9 fl (80.0-96.0); RED BLOOD COUNT 2.04 10^6/uL (4.30-6.10)
[2020-06-05 06:24] LABS: PLATELET COUNT, AUTOMATED 25 10^3/uL (150-450)
[2020-06-05 06:48] LABS: BLOOD UREA NITROGEN 24 MG/DL (7-18); CALCIUM LEVEL 8.2 MG/DL (8.8-10.2); CARBON DIOXIDE LEVEL 27 MEQ/L (21-32); CHLORIDE LEVEL 108 MEQ/L (98-107); CREATININE FOR GFR 1.21 MG/DL (0.70-1.30); GLOMERULAR FILTRATION RATE > 60.0 (>49); GLUCOSE, FASTING 94 MG/DL (70-100); POTASSIUM SERUM 4.3 MEQ/L (3.5-5.1); SODIUM LEVEL 137 MEQ/L (136-145)
[2020-06-05] MEDS: ONDANSETRON 4MG/2ML VIAL IV PRN (09:24)
[2020-06-05] MEDS: LORazepam 1 MG TAB PO PRN ×2 (09:24→17:29)
[2020-06-05] MEDS: traMADol 50 MG TAB PO PRN ×2 (09:24→17:30)
[2020-06-05 14:00] VITALS: BP 104/56
--- NOTE | 2020-06-05 16:37 | IPNPDOC ---
Date Seen The patient was seen on 06/05/20. Progress Note SUBJECTIVE: 69-year-old male with a history of metastatic small cell lung cancer with metastases to the brain. Receiving radiation and chemotherapy as well as with Dr. Sin, COPD and a history of a right subclavian and right axillary vein thrombosis post placement of a port. She was admitted after experiencing fevers and weakness/malaise. Currently, he is pancultured awaiting results. Concerning his thrombocytopenia while receiving therapeutic Lovenox. 4. Right subclavian DVT. Patient currently being followed by Dr. Quiles in clinic. Pending hematology oncology consult was placed on 06/05/20. OBJECTIVE PHYSICAL EXAMINATION: VITAL SIGNS: please see below General: NAD, comfortable HEENT: PERRLA, EOMI, sclerae clear Neck: R neck swelling, overlying surface anatomy of R sublavian, close to neck base Respiratory: lungs CTAB, no wheeze, no rales, no crackles CVS: RRR, normal S1, S2, no murmurs Abdo: soft, no masses, no hepatosplenomegaly, BS+, no rebound tenderness Extremities: no edema, pulses 2+ MSK: no joint deformities, normal ROM Neuro: no focal neuro deficits, moving all 4 extremities, CN2-12 intact. Strength 5/5 in all 4 extremities. No nystagmus. Psych: calm, cooperative, AAO x 3 LABORATORY DATA, IMAGING STUDIES, MICROBIOLOGY: Please see below. DVT prophylaxis ordered?: on therapeutic lovenox. SCDs, TEDs. ASSESSMENT AND PLAN: #metastatic small cell lung ca with mets to brain - d/w Dr. Sin, plan for radiation tx this morning - follows at [facility] #R subclavian thrombosis - presently on therapeutic lovenox for the past 1 month - swelling persists - D/w tawanna Quiles to leave port in place if functional - will d/w Oncology if port is still required - concern for bleeding given thrombocytopenia, PLT 25 - d/w Dr. Chavira, who for the time being recommends holding AC - consult placed for Dr. Skaggs who has seen patient in clinic #Fevers - afebrile, WBC 4.0 - blood cx prelim neg (1 set) - UA without findings to suggest infection - RVP negative - received 1 dose of augmentin in ED. #Pre renal SHERRI - resolved with IVF #Nausea/vomiting - zofran prn #Thrombocytopenia - possible induced by chemotherapy - holding AC - hematology/oncology consult placed Dispo: pending clinical improvement. VS, I&O, 24H, Fishbone Vital Signs/I&O Vital Signs Date Time Temp Pulse Resp B/P (MAP) Pulse Ox O2 Delivery O2 Flow Rate FiO2 06/05/20 14:00 98.0 91 20 104/56 (72) 95 Room Air I&O- Last 24 Hours up to 6 AM 06/05/20 06:00 Intake Total 2125 ml Output Total 0 ml Balance 2125 ml Laboratory Data 24H LABS Laboratory Tests 2 06/04/20 16:58: Urine Color YELLOW, Urine Appearance CLEAR, Urine pH 6.0, Urine Specific [place] 1.045, Urine Protein NEGATIVE, Urine Glucose (UA) NEGATIVE, Urine Ketones NEGATIVE, Urine Blood NEGATIVE, Urine Nitrite NEGATIVE, Urine Bilirubin NEGATIVE, Urine Urobilinogen 0.2, Urine Leukocyte Esterase NEGATIVE, Urine WBC (Auto) 1, Urine RBC (Auto) 1, Urine Hyaline Casts (Auto) 0, Urine Bacteria (Auto) NEGATIVE, Urine Squamous Epithelial Cells 1, Urine Mucus (Auto) SMALL, Urine Sperm (Auto) 06/05/20 05:59: Nucleated Red Blood Cells % (auto) 0.0, Anion Gap 2L, Glomerular Filtration Rate > 60.0, Calcium Level 8.2L 06/05/20 11:29: Lab Scanned Report Miscellaneous Lab CBC/BMP Laboratory Tests 06/05/20 05:59 Microbiology Microbiology 06/04/20 Respiratory Virus Panel (PCR) (KIT) - Final, Complete 06/04/20 Blood Culture - Preliminary, Resulted No growth after 24 hours . All specim... CHAD DRIVER MD Jun 05, 2020 16:37
--- NOTE | 2020-06-05 17:41 | CR.PDOC ---
General Date of Consultation: Jun 05, 2020 Referring Provider: A Attending Physician: CHAD DRIVER MD Consultation REASON FOR CONSULTATION/CHIEF COMPLAINT: This is a 69-year-old man with a hi story of metastatic small cell carcinoma who is under treatment with chemotherapy and radiation. According to the patient he was admitted because he was "" throwing up' in addition he had fatigue and other generalized symptoms. According to his history he was diagnosed in the beginning of the year at the [facility] in [place]. He was given his first cycle of chemotherapy and later imaging of the brain resulted in a diagnosis of intracranial metastasis. He's had 3 cycles of chemotherapy and has had radiation to the brain and currently just radiation is being withheld. His CBC indicated a hemoglobin of 8.8 WBC count 4200 but the platelets were 25,600 , today on the 05 of June his white blood count is 4000 hemoglobin has dropped to 7.2 and the platelets are 25,000 . additionally his other problems include. A question that was raised by inpatients is whether or not continuing anticoagulation would be justified at this time given that he has a right subclavian thrombosis has been on the rapeutic Lovenox for the past 1 month but the swelling persists. The port was placed in [facility] according to what I have noted. The patient was alert clear good spirits and looks very fit and these concerns were transmitted to him. He has been afebrile and there is no evidence of that he has infection or sepsis due to neutropenia. Even though he is thrombocytopenic there is no sign of petechial bruises or bleeding in any site. HISTORY OF PRESENT ILLNESS: [The history of present illness in this context is written above]. ALLERGIES: Please see below. HOME MEDICATIONS: Please see below. PAST MEDICAL HISTORY: 1. 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 2. . PAST SURGICAL HISTORY: 1. [surgical history includes the port placement for port surgery and multiple fractures to the left arm many years ago] 2. FAMILY HISTORY: Father: [Father had emphysema disease 18 years old mother had breast cancer at 71.] SOCIAL HISTORY: The patient is used to be facilities painter and very fit name that he lived well but smoked. Marital status and/or living arrangements: [] REVIEW OF SYSTEMS: HEENT no headaches no visual complaints or difficulty in swallowing. He has nausea vomiting which is settled partly but this is just his major complaint. No cough no chest pain no shortness of breath or hemoptysis rest and on no cardiac or other complaints. no abdominal discomfort at this time although he feels nauseated. 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 PHYSICAL EXAMINATION: Physical examination reveals a cooperative gentleman comfortable sitting in bed. HEENT pupils a circular equal and active ocular movements are full and preserved. Mouth is normal neck is supple chest bilaterally symmetrical right side of the right upper chest and the neck area is swollen and full consistent with his history of thrombosis. Examination of the heart reveals normal heart sounds abdomen is soft no organomegaly lower limbs no edema neurologically stable with no focal findings. Skin no petechiae VITAL SIGNS: Please see below. Recommendations: Reviewing his imaging of the chest shows subtle bibasilar airspace disease with a Yprjpu-p-Jtiu in place and the CT scan of the abdomen without contrast that showed diverticulosis and a partially thrombosed chronic infrarenal abdominal aortic aneurysm measuring 3.5 cm. The question that has been lost is whether or not anticoagulation should be continued. It is true that the platelet count is down to 25,000 and his hemoglobin has declined and in my discussion with the hospitalists the unit due to a packed cells would not be unreasonable. This would probably result in a further decline of his platelets. For the moment risk toward favors in my view continuing anticoagulation because of a large measure anticoagulation effects in the venous more than it is likely to affect the arterial and. I think is review of the patient's platelet count tomorrow would be quite informative. The decision to continue anticoagulation at this time is consistent with the risk toward at the moment. It is a day-to-day decision depending on the clinical and the CBC circumstances. A PT and INR would be helpful. We'll follow the patient with you thank you Vital Signs/I&O Vital Signs Date Time Temp Pulse Resp B/P (MAP) Pulse Ox O2 Delivery O2 Flow Rate FiO2 06/05/20 14:00 98.0 91 20 104/56 (72) 95 Room Air I&O- Last 24 Hours up to 6 AM 06/05/20 05:59 Intake Total 1155 ml Output Total 0 ml Balance 1155 ml Laboratory Data Labs 24H Laboratory Tests 2 06/05/20 05:59: Nucleated Red Blood Cells % (auto) 0.0, Anion Gap 2L, Glomerular Filtration Rate > 60.0, Calcium Level 8.2L 06/05/20 11:29: Lab Scanned Report Miscellaneous Lab CBC/BMP Laboratory Tests 06/05/20 05:59 Microbiology Microbiology 06/04/20 Respiratory Virus Panel (PCR) (KIT) - Final, Complete 06/04/20 Blood Culture - Preliminary, Resulted No growth after 24 hours . All specim... Allergies Coded Allergies: No Known Allergies (Unverified , 02/19/18) Home Medications Scheduled Dexamethasone (Dexamethasone) 4 Mg Tablet, 4 MG PO DAILY, #7 Enoxaparin Sodium (Enoxaparin Sodium) 100 Mg/1 Ml Syringe, 100 MG SC Q12H, (Reported) Prochlorperazine (Prochlorperazine) 25 Mg Supp.rect, 1 SUP [place] Q8H for 2 Days, #6 Trazodone HCl (Trazodone HCl) 50 Mg Tab, 200 MG PO QHS, (Reported) RX STATES UP TO 5 TABLETS QHS PRN Scheduled PRN Acetaminophen (Acetaminophen) 325 Mg Tablet, 650 MG PO Q6H PRN for PAIN, (Reported) Lorazepam (Lorazepam) 1 Mg Tablet, 1 TAB PO BIDP PRN for ANXIETY for 30 Days, #60 Ondansetron HCl (Ondansetron HCl) 4 Mg Tablet, 1 TAB PO TID PRN for nausea/vomiting for 3 Days, #90 Polyethylene Glycol 3350 (Polyethylene Glycol 3350) 17 Gm Powd.pack, 1 PKT PO DAILYPRN PRN for CONSTIPATION for 30 Days, #30 Tramadol HCl (Tramadol HCl) 50 Mg Tablet, 50 MG PO Q8H PRN for PAIN, (Reported) DOT FOREMAN MDFRCP Jun 05, 2020 17:41
--- NOTE | 2020-06-05 17:59 | MEDONCPDOC ---
Medical Oncology Office Note Date of Service: Jun 05, 2020 Diagnosis/Treatment History PLEASE SEE THE RECOMMENDATIONS Allergies Coded Allergies: No Known Allergies (Unverified , 02/19/18) Home Medications Active Scripts Lorazepam (Lorazepam) 1 Mg Tablet, 1 TAB PO BIDP PRN for ANXIETY MDD 2 Tablet(s) for 30 Days, #60 TAB Prov:CHRIS SIN MD 05/28/20 Dexamethasone (Dexamethasone) 4 Mg Tablet, 4 MG PO DAILY, #7 TAB Prov:CHRIS SIN MD 05/28/20 Prochlorperazine (Prochlorperazine) 25 Mg Supp.rect, 1 SUP [place] Q8H for 2 Days, #6 SUP Prov:ANKIT FRANCOIS MD 05/27/20 Polyethylene Glycol 3350 (Polyethylene Glycol 3350) 17 Gm Powd.pack, 1 PKT PO DAILYPRN PRN for CONSTIPATION for 30 Days, #30 PACKET Prov:Christiana Browning MD 05/19/20 Ondansetron HCl (Ondansetron HCl) 4 Mg Tablet, 1 TAB PO TID PRN for nausea/vomiting for 3 Days, #90 TAB 3 Refills Prov:CHRIS SIN MD 05/11/20 Reported Medications Tramadol HCl (Tramadol HCl) 50 Mg Tablet, 50 MG PO Q8H PRN for PAIN, TAB 06/04/20 Enoxaparin Sodium (Enoxaparin Sodium) 100 Mg/1 Ml Syringe, 100 MG SC Q12H, INJ 06/04/20 Acetaminophen (Acetaminophen) 325 Mg Tablet, 650 MG PO Q6H PRN for PAIN, TAB 06/04/20 Trazodone HCl (Trazodone HCl) 50 Mg Tab, 200 MG PO QHS RX STATES UP TO 5 TABLETS QHS PRN 02/19/18 Discontinued Scripts Tramadol HCl (Tramadol HCl) 50 Mg Tablet, 50 MG PO Q8HP PRN for MODERATE PAIN (PS 5-7) MDD 3 for 5 Days, #15 TAB Prov:Christiana Browning MD 05/19/20 Acetaminophen (Acetaminophen) 325 Mg Tablet, 650 MG PO Q6HP PRN for PAIN OR FEVER for 7 Days, #56 TAB Prov:Christiana Browning MD 05/19/20 Enoxaparin Sodium (Lovenox) 40 Mg/0.4 Ml Syringe, 100 MG SC BID for 30 Days, #30 SYRINGE Prov:Christiana Browning MD 05/18/20 Ht / Wt Ht / Wt Height:6 Feet 0 Inches Weight: 93.000 Kg Vital Signs Vital Signs Date Time Temp Pulse Resp B/P (MAP) Pulse Ox O2 Delivery O2 Flow Rate FiO2 06/05/20 17:30 18 Room Air 06/05/20 14:00 98.0 91 104/56 (72) 95 Laboratory Data Laboratory Tests Test 06/04/20 11:58 06/05/20 05:59 Blood Urea Nitrogen 26 MG/DL (7-18) H 24 MG/DL (7-18) H Creatinine 1.42 MG/DL (0.70-1.30) H 1.21 MG/DL (0.70-1.30) Glomerular Filtration Rate 52.9 (>49) > 60.0 (>49) Fasting Glucose 107 MG/DL (70-100) H 94 MG/DL (70-100) Calcium Level 8.5 MG/DL (8.8-10.2) L 8.2 MG/DL (8.8-10.2) L Total Bilirubin 0.6 MG/DL (0.2-1.0) Aspartate Amino Transf (AST/SGOT) 5 U/L (7-37) L Alanine Aminotransferase (ALT/SGPT) 13 U/L (12-78) Total Protein 6.2 GM/DL (6.4-8.2) L Sodium Level 132 MEQ/L (136-145) L 137 MEQ/L (136-145) Albumin 3.3 GM/DL (3.2-5.2) Alkaline Phosphatase 68 U/L (45-117) Potassium Level 4.0 MEQ/L (3.5-5.1) 4.3 MEQ/L (3.5-5.1) Chloride Level 99 MEQ/L (98-107) 108 MEQ/L (98-107) H Carbon Dioxide Level 25 MEQ/L (21-32) 27 MEQ/L (21-32) Anion Gap 8 MEQ/L (8-16) 2 MEQ/L (8-16) L Lipase 60 U/L (73-393) L Laboratory Tests 06/04/20 11:58 06/05/20 05:59 Assessment/Plan Unfortunately there were many errors in the Recommendations which were dictated. Thus the following should override my earlier dictation 1. [place] [address] he has no bleeding or petichae . 2. I would continue anticoagulation at this time given the risk reward because of the thrombosis in the great neck veins ,they can retrogradely progress. 3. a unit of packed cells to increase the Hb is appropriate but the platelets can decline ,should this occor lvenox can be stopped. 4. a PT and INR afresh 5. Will discuss again with the team in AM Thanks CC TO: CC TO: Primary Care Provider: Chris Sin MD Referring Provider: DOT FOREMAN MDFRCP Jun 05, 2020 17:59
[2020-06-05 20:12] LABS: INR 1.01; PROTHROMBIN TIME 13.5 SECONDS (12.5-14.3)
[2020-06-05] MEDS: ENOXAPARIN 100MG/1ML SYRINGE (J1650 PER 10MG) SC SCH (21:00)
[2020-06-05 21:07] VITALS: BP 115/64
[2020-06-05 21:22] VITALS: BP 113/63
[2020-06-05 22:07] VITALS: BP 112/63
[2020-06-05 23:07] VITALS: BP 119/64
[2020-06-05] MEDS: traZODone 100 MG TAB PO SCH (23:40)
[2020-06-06] VITALS (7 sets, daily range): BP systolic 96–114; BP diastolic 54–67
[2020-06-06] MEDS: LR 1,000 ML IV SCH ×2 (00:18→08:09)
[2020-06-06] MEDS: ONDANSETRON 4MG/2ML VIAL IV PRN ×2 (01:32→08:10)
[2020-06-06 06:18] LABS: HEMATOCRIT 22.1 % (42.0-52.0); HEMOGLOBIN 7.5 g/dl (13.5-17.5); MEAN CORPUSCULAR HEMOGLOBIN 34.7 pg (27.0-33.0); MEAN CORPUSCULAR HGB CONC 33.9 g/dl (32.0-36.5); MEAN CORPUSCULAR VOLUME 102.3 fl (80.0-96.0); RED BLOOD COUNT 2.16 10^6/uL (4.30-6.10); WHITE BLOOD COUNT 4.8 10^3/uL (4.0-10.0)
[2020-06-06 06:21] LABS: PLATELET COUNT, AUTOMATED 34 10^3/uL (150-450)
[2020-06-06 06:25] LABS: INR 1.04; PROTHROMBIN TIME 13.8 SECONDS (12.5-14.3)
[2020-06-06 06:38] LABS: BLOOD UREA NITROGEN 20 MG/DL (7-18); CALCIUM LEVEL 8.2 MG/DL (8.8-10.2); CARBON DIOXIDE LEVEL 26 MEQ/L (21-32); CHLORIDE LEVEL 105 MEQ/L (98-107); CREATININE FOR GFR 1.08 MG/DL (0.70-1.30); GLOMERULAR FILTRATION RATE > 60.0 (>49); GLUCOSE, FASTING 87 MG/DL (70-100); POTASSIUM SERUM 4.1 MEQ/L (3.5-5.1); SODIUM LEVEL 137 MEQ/L (136-145)
[2020-06-06] MEDS: ENOXAPARIN 100MG/1ML SYRINGE (J1650 PER 10MG) SC SCH (08:09)
[2020-06-06] MEDS: LORazepam 1 MG TAB PO PRN (08:10)
[2020-06-06] MEDS: traMADol 50 MG TAB PO PRN (08:10)
--- NOTE | 2020-06-06 11:16 | DS.PDOC ---
Discharge Summary General Date of Admission Jun 04, 2020 at 17:13 Date of Discharge 06/06/20 Discharge Summary PROCEDURES PERFORMED DURING STAY: [None]. ADMITTING DIAGNOSES: Metastatic small cell lung ca with brain mets R subclavian thrombosis Fevers Pre-renal SHERRI Nausea and vomiting Thrombocytopenia DISCHARGE DIAGNOSES: Metastatic small cell lung ca with brain mets R subclavian thrombosis Fevers Pre-renal SHERRI Nausea and vomiting Thrombocytopenia COMPLICATIONS/CHIEF COMPLAINT: Dehydration/Lung Cancer. HISTORY OF PRESENT ILLNESS: The patient went to very [facility] earlier this morning to receive radiation for metastatic small cell lung cancer to the brain. Apparently he was found to have a temperature while there, although I have not been able to find out the number. Additionally he has been suffering from weakness, fatigue, nausea since he started to radiation and chemotherapy approximately 1.5 months ago, but he is also been vomiting more often lately, and having a terrible time keeping things down over the past few days. He was sent over to the emergency department for further evaluation. HOSPITAL COURSE: #metastatic small cell lung ca with mets to brain - d/w Dr. Sin, plan for radiation tx this morning, has daily appt at 10:45 - follows at [facility] #R subclavian thrombosis - presently on therapeutic lovenox for the past 1 month - swelling persists - D/w Kb, tawanna to leave port in place if functional - concern for bleeding given thrombocytopenia, PLT 25 - Heme consult placed, d/w Dr. Skaggs, recommends to keep port in place, and c/w full dose lovenox - monitor CBC daily, and monitor for signs of bleeding - patient has been explained risks extensively, and has involved daughter in decision-making process - they agree to continue with AC and will have close follow up to monitor hgb and PLT #Fevers - resolved - afebrile, no leukocytosis - blood cx prelim neg (1 set) - UA without findings to suggest infection - RVP negative - received 1 dose of augmentin in ED. #Pre renal SHERRI - resolved with IVF #Nausea/vomiting - zofran prn #Thrombocytopenia - possible induced by chemotherapy - PLTs improved from 25,000 to 34,000 - hematology/oncology consult placed - d/w Dr. Skaggs, plan to c/w Lovenox full dose 1 mg/kg q12h, with daily CBC to monitor Hgb and PLTs DISCHARGE MEDICATIONS: Please see below. ALLERGIES: Please see below. PHYSICAL EXAMINATION ON DISCHARGE: VITAL SIGNS: please see below General: NAD, comfortable HEENT: PERRLA, EOMI, sclerae clear Neck: R neck swelling, overlying surface anatomy of R sublavian, close to neck base Respiratory: lungs CTAB, no wheeze, no rales, no crackles CVS: RRR, normal S1, S2, no murmurs Abdo: soft, no masses, no hepatosplenomegaly, BS+, no rebound tenderness Extremities: no edema, pulses 2+ MSK: no joint deformities, normal ROM Neuro: no focal neuro deficits, moving all 4 extremities, CN2-12 intact. Strength 5/5 in all 4 extremities. No nystagmus. Psych: calm, cooperative, AAO x 3 LABORATORY DATA: Please see below. IMAGING: CXR (06/04/20): Portable AP chest x-ray FINDINGS: Very subtle bibasilar airspace disease cannot be excluded and should be corre lated with auscultation and physical examination. No discrete focal consolidation. No effusion. No pneumothorax. Mediastinum and cardiac silhouette are normal. [id number] identified with tip in the SVC/right atrium. Skeletal structures intact. CT the abdomen and pelvis without contrast IMPRESSION: 1. No obvious acute abdominopelvic pathology appreciated. No ascites, focal inflammatory stranding, or adenopathy. 2. Diverticulosis without acute diverticulitis. No bowel obstruction or p erforation. 3. Partially thrombosed chronic infrarenal abdominal aortic aneurysm measures 3.5 cm maximal diameter. 4. Further nonacute findings as described above. PROGNOSIS: fair ACTIVITY: As tolerated DIET: as tolerated DISPOSITION: home with DISCHARGE INSTRUCTIONS: . Please follow-up with your primary care doctor within 3-5 days . Please follow-up with [facility] on 06/07/20, and daily thereafter for a repeat blood count. . Please taking medications as prescribed. . If you develop bleeding, fall, chest pain, shortness of breath, seizures, nausea, fevers, or otherwise worsening of your symptoms, please call 911 or return to the nearest emergency room ITEMS TO FOLLOWUP ON ON OUTPATIENT: 1. Daily CBC to monitor Hgb and PLT count per Dr. Skaggs, will be followed in the [facility] clinic 2. c/w RT with Dr. Sin 3. As discussed with Dr. Skaggs, Dr. Quiles as well as the patient and his daughter, plan is to continue full dose anticoagulation with lovenox 1mg/kg q12h, and obtain daily CBC with close follow up at [facility]. 4. Home health referral was placed, as well as a palliative care consult to assist with low appetite. 5. Advised not to drive at this time DISCHARGE CONDITION: Stable TIME SPENT ON DISCHARGE: 35 minutes. Vital Signs/I&Os Vital Signs Date Time Temp Pulse Resp B/P (MAP) Pulse Ox O2 Delivery O2 Flow Rate FiO2 06/06/20 08:40 15 Room Air 06/06/20 06:00 98.6 88 96/54 (68) 95 I&O- Last 24 Hours up to 6 AM 06/06/20 06:00 Intake Total 1640 ml Output Total 0 ml Balance 1640 ml Laboratory Data Labs 24H Laboratory Tests 2 06/05/20 11:29: Lab Scanned Report Miscellaneous Lab 06/05/20 19:38: Prothrombin Time 13.5, Prothromb Time International Ratio 1.01 06/06/20 05:59: Prothrombin Time 13.8, Prothromb Time International Ratio 1.04, Nucleated Red Blood Cells % (auto) 0.0, Immature Platelet Fraction 5.5, Anion Gap 6L, Glomerular Filtration Rate > 60.0, Calcium Level 8.2L CBC/BMP Laboratory Tests 06/06/20 05:59 Microbiology Microbiology 06/04/20 Respiratory Virus Panel (PCR) (KIT) - Final, Complete 06/04/20 Blood Culture - Preliminary, Resulted No growth after 24 hours . All specim... Discharge Medications Scheduled Dexamethasone (Dexamethasone) 4 Mg Tablet, 4 MG PO DAILY Enoxaparin Sodium (Enoxaparin Sodium) 100 Mg/1 Ml Syringe, 100 MG SC Q12H, (Reported) Prochlorperazine (Prochlorperazine) 25 Mg Supp.rect, 1 SUP [place] Q8H Trazodone HCl (Trazodone HCl) 50 Mg Tab, 200 MG PO QHS, (Reported) RX STATES UP TO 5 TABLETS QHS PRN Scheduled PRN Acetaminophen (Acetaminophen) 325 Mg Tablet, 650 MG PO Q6H PRN for PAIN, (Reported) Lorazepam (Lorazepam) 1 Mg Tablet, 1 TAB PO BIDP PRN for ANXIETY Ondansetron HCl (Ondansetron HCl) 4 Mg Tablet, 1 TAB PO TID PRN for nausea/vomiting Polyethylene Glycol 3350 (Polyethylene Glycol 3350) 17 Gm Powd.pack, 1 PKT PO DAILYPRN PRN for CONSTIPATION Tramadol HCl (Tramadol HCl) 50 Mg Tablet, 50 MG PO Q8H PRN for PAIN, (Reported) Allergies Coded Allergies: No Known Allergies (Unverified , 02/19/18) CHAD DRIVER MD Jun 06, 2020 11:16
[2020-06-06] MEDS ORDERED: TRAM50TA2 PO (11:27)
[2020-06-06] MEDS ORDERED: ONDA-83 PO (11:27)
[2020-06-06] MEDS ORDERED: APAP325T4 PO (11:27)
[2020-06-06] MEDS ORDERED: POLY17PO18 PO (11:27)
[2020-06-06] MEDS ORDERED: ENOX100I3 SC (11:27)
[2020-06-06 14:36] LABS: HEMATOCRIT 23.9 % (42.0-52.0); HEMOGLOBIN 8.1 g/dl (13.5-17.5); MEAN CORPUSCULAR HEMOGLOBIN 34.6 pg (27.0-33.0); MEAN CORPUSCULAR HGB CONC 33.9 g/dl (32.0-36.5); MEAN CORPUSCULAR VOLUME 102.1 fl (80.0-96.0); RED BLOOD COUNT 2.34 10^6/uL (4.30-6.10); WHITE BLOOD COUNT 4.4 10^3/uL (4.0-10.0)
[2020-06-06 14:41] LABS: PLATELET COUNT, AUTOMATED 30 10^3/uL (150-450)
[2020-06-06 15:18] LABS: BASOPHILS 1 % (0-1); EOSINOPHILS 1 % (0-3); LYMPHOCYTES 8 % (16-44); MONOCYTES 4 % (0-5); NEUTROPHILS 81 % (28-66); PLATELET ESTIMATE DECREASED (NORMAL)
== END 2020-06-06 16:30 | disposition home or self-care (01) | DRG 813 ==
LOC: M ED 11:29 → M ED INP 17:13 → M MSPAV 22:18
PROVIDERS: ADMIT Neuromusculoskeletal Medicine & OMM; ATTEND Family Medicine
PROC: 30233N1 Transfusion of Nonautologous Red Blood Cells into Peripheral Vein, Percutaneous Approach (ICD-10-PCS; principal; 2020-06-05)
DX: D69.59 Other secondary thrombocytopenia (principal); C34.90 Malignant neoplasm of unspecified part of unspecified bronchus or lung; C79.31 Secondary malignant neoplasm of brain; T82.868A Thrombosis due to vascular prosthetic devices, implants and grafts, initial encounter; N17.9 Acute kidney failure, unspecified; E86.0 Dehydration; J44.9 Chronic obstructive pulmonary disease, unspecified; R11.2 Nausea with vomiting, unspecified; Z92.3 Personal history of irradiation; Z92.21 Personal history of antineoplastic chemotherapy; R50.9 Fever, unspecified; Z79.899 Other long term (current) drug therapy; Z66 Do not resuscitate; F17.200 Nicotine dependence, unspecified, uncomplicated; Z79.01 Long term (current) use of anticoagulants

== ENCOUNTER → 2020-06-05 | Outpatient (POV) | payer OTHER ==
[~2020-06-05] MED LIST changes: +APAP325T4 PO; +AUGM875T28 PO; +ENOX100I3 SC
--- NOTE | 2020-06-11 12:27 | IRCOV ---
[facility] IR Consult Office Visit IR Consult Office Visit DATE: Jun 05, 2020 Patient agreed to this telephone consultation. I spent 30 minutes talking to the patient and reviewing patient's imaging. REASON FOR CONSULTATION/CHIEF COMPLAINT: Upper extremity DVT. Port placed at outside hospital. HISTORY OF PRESENT ILLNESS: 69-year-old male with non-small cell lung cancer status post chemotherapy and radiation treatment to lung and brain. Patient presented in May with neck swelling and pain. He underwent ultrasound which demonstrated right IJ, axillary and subclavian thrombus. He is currently on Lovenox. [facility] He states ever since the port was placed he felt swelling and pain at the site. Every time they used it he would feel pain. It was used a couple of times. He no longer follows up wi th the DC. The port is not currently being used. He denies right arm swelling or facial swelling. ALLERGIES: Please see below. HOME MEDICATIONS: Please see below. PAST MEDICAL HISTORY: Lung cancer with brain metastases status post chemoradiation COPD Prostate cancer Right upper extremity DVT PAST SURGICAL HISTORY: Chest port placed March 2020 Right wrist surgery Left arm fractures FAMILY HISTORY: Noncontributory. SOCIAL HISTORY: Smoker smokes 2 packs per day for 50 years. Denies alcohol or d rugs. REVIEW OF SYSTEMS: Otherwise negative. PHYSICAL EXAMINATION: No video on patient side. LABORATORY DATA: 06/06/2020 hemoglobin 8.1 hematocrit 20 3.9W BC 4.4 platelets 30 sodium 137 potassium 4.1 BUN 20 creatinine 1.08 Imaging: I personally reviewed the right neck upper extremity vein ultrasound performed 05/16/20. There is occlusive thrombus in the right IJ, axillary vein and subclavian vein imaged. ASSESSMENT/PLAN: 69-year-old male with right-sided chest port placed at outside hospital in March, presents with recent right neck pain and related right neck DVT. Patient has been on anticoagulation for less than one month. The standard would be to keep the port in while treating with anticoagulation and remove the port when it is no longer needed. Patient will be scheduled for 3 month follow-up after appropriate anticoagulation to evaluate for port removal. Patient to call us if symptoms change or for worsening of pain or swelling. Thank you for this referral. Cc Dr. Dubois Cc Dr. Skaggs Allergies Coded Allergies: No Known Allergies (Unverified , 02/19/18) Home Medications Scheduled Dexamethasone (Dexamethasone), 4 MG PO DAILY Enoxaparin Sodium (Enoxaparin Sodium), 90 MG SC Q12H Prochlorperazine (Prochlorperazine), 1 SUP [place] Q8H Trazodone HCl (Trazodone HCl), 200 MG PO QHS, (Reported) Scheduled PRN Acetaminophen (Acetaminophen), 650 MG PO Q6H PRN for PAIN Lorazepam (Lorazepam), 1 TAB PO BIDP PRN for ANXIETY Ondansetron HCl (Ondansetron HCl), 1 TAB PO TID PRN for nausea/vomiting Polyethylene Glycol 3350 (Polyethylene Glycol 3350), 1 PKT PO DAILYPRN PRN for CONSTIPATION Tramadol HCl (Tramadol HCl), 50 MG PO Q8H PRN for PAIN Discontinued Medications Acetaminophen (Acetaminophen), 650 MG PO Q6HP PRN for PAIN OR FEVER Discontinued Reason: Pt states not taking Enoxaparin Sodium (Lovenox), 100 MG SC BID Discontinued Reason: Re-entering as new Tramadol HCl (Tramadol HCl), 50 MG PO Q8HP PRN for MODERATE PAIN (PS 5-7) Discontinued Reason: Re-entering as new ALLISON JORDAN MD Jun 11, 2020 12:26
== END ==
LOC: M TMIRPOV 09:27
PROVIDERS: ATTEND Radiology Diagnostic Radiology
DX: I82.C11 Acute embolism and thrombosis of right internal jugular vein (principal); I82.A11 Acute embolism and thrombosis of right axillary vein; I82.B11 Acute embolism and thrombosis of right subclavian vein; C34.90 Malignant neoplasm of unspecified part of unspecified bronchus or lung; C79.31 Secondary malignant neoplasm of brain; Z92.21 Personal history of antineoplastic chemotherapy; Z92.3 Personal history of irradiation; Z95.828 Presence of other vascular implants and grafts

== ENCOUNTER 2020-06-14 10:43 | Outpatient (RCR) | payer OTHER ==
[2020-06-21] MEDS ORDERED: LORA1TAB4 PO (14:17)
[2020-06-26] MEDS ORDERED: OLAN5TAB PO (11:00)
[2020-06-29] MEDS ORDERED: ONDA-83 PO (21:21)
[2020-06-29] MEDS ORDERED: POLY17PO18 PO (21:21)
[2020-06-29] MEDS ORDERED: TRAM50TA2 PO (21:21)
[2020-06-29] MEDS ORDERED: ENOX100I3 SC (21:21)
[2020-07-02] MEDS ORDERED: ELIQ5TAB PO (10:09)
[2020-07-02] MEDS ORDERED: NYST50SS SS (10:09)
[2020-07-02] MEDS ORDERED: PANT40TA29 PO (10:09)
[2020-07-02] MEDS ORDERED: LEVO750T13 PO (10:09)
[2020-07-02] MEDS ORDERED: PREG25CA PO (10:09)
[2020-07-02] MEDS ORDERED: ONDA-83 PO (11:32)
[2020-07-04] MEDS ORDERED: ELIQ5TAB PO (09:31)
== END 2020-07-04 ==
LOC: M ONCR 10:43
PROVIDERS: ATTEND General Practice
DX: C34.11 Malignant neoplasm of upper lobe, right bronchus or lung (principal); C79.31 Secondary malignant neoplasm of brain

== ENCOUNTER → 2020-06-19 | Outpatient (POV) | payer OTHER ==
--- NOTE | 2020-06-21 15:22 | IRPN ---
[facility] IR Progress Note IR Progress Note DATE: Jun 19, 2020 Patient was consulted couple of weeks ago when he was in the hospital. Patient has a right IJ and subclavian thrombosis and a right-sided port placed at [facility]. Patient started anticoagulation recently. His DVT was diagnosed in May. Patient to continue on anticoagulation for 3 months after which he'll be brought back for port removal. Allergies Coded Allergies: No Known Allergies (Unverified , 02/19/18) ALLISON JORDAN MD Jun 21, 2020 15:22
== END ==
LOC: M TMIRPOV 08:31
PROVIDERS: ATTEND Radiology Diagnostic Radiology
DX: I82.C11 Acute embolism and thrombosis of right internal jugular vein (principal); I82.B11 Acute embolism and thrombosis of right subclavian vein

== ENCOUNTER → 2020-06-26 | Outpatient (CLI) | payer OTHER ==
[~2020-06-26] MED LIST changes: +ELIQ5TAB PO; +LEVO750T13 PO; +NYST50SS SS; +OLAN5TAB PO; +PANT40TA29 PO; +PREG25CA PO
--- NOTE | 2020-06-26 11:07 | RADENCPD ---
Date/Time of Encounter Date of Encounter: Jun 26, 2020 Time of Encounter: 11:00 Encounter Arpit came in today for an urgent follow up due to refractory nausea. He describes constant nausea in the absence of significant vomiting. He is not inclined to take anything PO due to the nausea. He has only been drinking water here and there. Weight is down 8 lbs from last visit. Last chemotherapy was 06/21/20. Taking zofran and ativan without significant relief. He has been constipated as well. Last night had to disimpact himself. This was promptly followed by diarrhea which gave him some relief. He has mild dysphagia as well but feels he can take fluids and food without much difficulty, just cannot overcome the nausea. Assessment: Refractory chemotherapy induced nausea Poor PO intake, likely dehydrated Not failure to thrive based on retained PS (still ambulatory, attending to ADLs etc.) Plan: I discussed starting olanzapine 5 mg daily, which has efficacy in cisplatin induced nausea refractory to other therapies He should discontinue zofran with this He may continue his ativan BID as prescribed If nausea improves, then he should focus on hydration first, then add back soft foods If nausea fails to improve, and he is unable to tolerate PO, then he should call us and we can facilitate admission for IVF and IV medications CHRIS ECKERT MD Jun 26, 2020 11:07
== END ==
LOC: M ONCR 10:17
PROVIDERS: ATTEND General Practice
DX: C34.11 Malignant neoplasm of upper lobe, right bronchus or lung (principal); R11.0 Nausea

== ENCOUNTER 2020-06-29 16:52 | Inpatient (IN) | payer OTHER ==
[~2020-06-29] VITALS: Ht 182.9 cm; Wt 91.4 kg
[~2020-06-29 16:52] MED LIST changes: -ELIQ5TAB PO; -LEVO750T13 PO; -NYST50SS SS; -PANT40TA29 PO; -PREG25CA PO
[2020-06-29] MEDS ORDERED: NS 1,000 ML IV ONE (17:55)
[2020-06-29] MEDS ORDERED: OLANZapine ORAL DISINTEGRATING TAB 5MG PO ONE (17:55)
[2020-06-29] MEDS ORDERED: ACETAMINOPHEN 325 MG TAB PO ONE (18:05)
[2020-06-29 18:25] LABS: EOS % 2.1 % (0.0-3.0); LYMPH # 0.3 10^3/uL (1.5-5.0); LYMPH % 55.3 % (24.0-44.0); MEAN CORPUSCULAR HEMOGLOBIN 35.8 pg (27.0-33.0); MEAN CORPUSCULAR HGB CONC 34.5 g/dl (32.0-36.5); MEAN CORPUSCULAR VOLUME 103.6 fl (80.0-96.0); MONO # 0.1 10^3/uL (0.0-0.8); NEUTROPHILS % 25.6 % (36.0-66.0); RED BLOOD COUNT 1.65 10^6/uL (4.30-6.10)
[2020-06-29 18:41] LABS: ALBUMIN 3.1 GM/DL (3.2-5.2); BILIRUBIN,TOTAL 1.6 MG/DL (0.2-1.0); CALCIUM LEVEL 8.3 MG/DL (8.8-10.2); CREATININE FOR GFR 2.62 MG/DL (0.70-1.30); GLOMERULAR FILTRATION RATE 26.1 (>49); POTASSIUM SERUM 3.8 MEQ/L (3.5-5.1); TOTAL PROTEIN 5.9 GM/DL (6.4-8.2)
[2020-06-29 18:50] LABS: HEMATOCRIT 17.1 % (42.0-52.0); HEMOGLOBIN 5.9 g/dl (13.5-17.5); WHITE BLOOD COUNT 0.5 10^3/uL (4.0-10.0)
[2020-06-29 18:51] LABS: NEUTROPHILS # 0.1 10^3/uL (1.5-8.5); PLATELET COUNT, AUTOMATED 7 10^3/uL (150-450)
--- NOTE | 2020-06-29 19:47 | REP ---
INDICATION: fever. COMPARISON: Comparison chest x-ray June 04, 2020.. TECHNIQUE: Sitting portable AP chest radiograph. FINDINGS: The lungs are symmetrically aerated and clear. Heart size is normal. Pleural angles are sharp. Pulmonary vasculature is not increased. There is a right-sided [id number] catheter with its tip in the expected location of the superior vena cava. EKG monitoring electrodes are noted. IMPRESSION: No active disease. <Electronically signed by Jesse Saldivar > 06/29/201942
[2020-06-29] MEDS ORDERED: VANCOMYCIN HCL 2,000 MG in D5W 500 ML IV ONE (20:15)
[2020-06-29] MEDS ORDERED: VANCOMYCIN HCL 1,000 MG, VIAL MATE ADAPTER 1 EACH in NS 250 ML IV ONE ×3 (20:30→22:30)
[2020-06-29 20:38] LABS: RSV AMPLIFICATION NEGATIVE (NEGATIVE)
[2020-06-29] MEDS ORDERED: MAALOX 30 ML SUSP *UDC PO PRN (20:55)
[2020-06-29] MEDS ORDERED: MOM 30ML SUSPENSION UDC PO PRN (20:55)
[2020-06-29] MEDS ORDERED: LIDOCAINE VISCOUS 2% SOLN 15ML UDC SSP PRN (20:55)
[2020-06-29] MEDS ORDERED: MAGIC MOUTHWASH SUSPENSION BTL SSP PRN (20:55)
[2020-06-29] MEDS ORDERED: ACETAMINOPHEN TAB 650MG DOSE (2X325MG) PO PRN (20:55)
--- NOTE | 2020-06-29 21:12 | HPEPDOC ---
[facility] Medical History & Physical Date of Admission Jun 29, 2020 Date of Service: Jun 29, 2020 Attending Physician: COLLETTE ALANIS MD History and Physical TIME OF SERVICE: 1105pm CHIEF COMPLAINT: nausea HISTORY OF PRESENT ILLNESS: This 69 yr old had chemo on June 21 and radiation about 1 week ago. Today he presented w c/o nausea, vomiting, diarrhea and abdominal pain along with poor appetite for 5 days. Based on ER intake notes the patient and his noted that he has been confused. 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 HOME MEDICATIONS: Please see below. PHYSICAL EXAMINATION: Vital Signs Date Time Temp Pulse Resp B/P (MAP) Pulse Ox O2 Delivery O2 Flow Rate FiO2 06/29/20 16:52 97.3 129 26 88/53 (65) 100 06/29/20 19:51 Nasal Cannula 3.0 GENERAL APPEARANCE: well nourished and developed/ NAD HEENT: EOMI /no scleral icterus / MMM&P CARDIOVASCULAR: RRR/NMRG LUNGS: CTAB on RA ABDOMEN: obese / soft & NT MUSCULOSKELETAL:RADHA x 4 INTEGUMENT: slightly pale NEUROLOGICAL: speech not dysarthric PSYCHIATRIC: A&O / able to understand and follow all commands LABORATORY DATA: 06/29/20 18:01 IMAGING: Chest xray IMPRESSION: No active disease. MICROBIOLOGY: Respiratory panel neg /de dios cx pending ASSESSMENT: is a 69 yr old w a hx of SCLC w mets to the brain, COPD, Prostate cancer and DVT who presented w c/o n/v/d and will be admitted for neutropenic fever, pancytopenia and SHERRI. PLAN: 1 Neutropenia ( with Fever) / Sepsis He has neutropenia with fever > 100.4 + ANC < 500 Etiology: 7-14 days post chemo vs other infection (GI?) He has SIRS as well IF MASCC score is <21 = high risk Plan: neutropenic precautions / f/u blood Cx sputum Cx, GI panel, C diff / Pip-tazo + Gentamycin + Vancomycin / since he has a fever, is > 65 yrs of age and has sepsis he meets the criteria to receive neuopgen 2 Sepsis 2/2 GI source vs SIRS Tachycardia, fever and neutropenia Plan: abx/ IVF / f/u de dios cx / Acetaminophen PRN for fever / target MAP at of least 65 to 70 / f/u Is and Os with target UOP of at least 0.5 ml/kg/H / f/u [id number] w target serum glucose 140-180 while acutely ill 3 Anemia w thrombocytopenia Plan: PRBCs and Plts / aim for Hg >7 and Plt #>10 / hold lovenox and switch to treatment dose hepairn 4 SHERRI Likely 2/2 diarrhea and poor PO intake Plan: monitor UOP / IVF / f/u renal panel, CK, Ulytes for FENa or FEUrea / renal US / hold nephrotoxic drugs 5 RLS vs neuropathy Plan: octavia 6 DVT / catheter related thrombosis Plan: day time team can call Hem/Onc to discuss switching from lovenox to Heparin drip bc of acute anemia 7 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 Plan: f/u w Hem/onc as scheduled 8 COPD Plan; albuterol PRN DVT treatment dose lovenox on hold pending d/w Executive Kitchen Manager Dispo: home after at least 2 midnights stay Home Medications Scheduled Dexamethasone (Dexamethasone) 4 Mg Tablet, 4 MG PO DAILY Enoxaparin Sodium (Enoxaparin Sodium) 100 Mg/1 Ml Syringe, 90 MG SC Q12H Lorazepam (Lorazepam) 1 Mg Tablet, 1 TAB PO BID Olanzapine (Olanzapine) 5 Mg Tablet, 1 TAB PO DAILY for Chemo induced nausea Prochlorperazine (Prochlorperazine) 25 Mg Supp.rect, 1 SUP [place] Q8H Trazodone HCl (Trazodone HCl) 50 Mg Tab, 200 MG PO QHS RX STATES UP TO 5 TABLETS QHS PRN Scheduled PRN Ondansetron HCl (Ondansetron HCl) 4 Mg Tablet, 4 MG PO TID PRN for NAUSEA OR VOMITING Polyethylene Glycol 3350 (Polyethylene Glycol 3350) 17 Gm Powd.pack, 1 PKT PO DAILY PRN for CONSTIPATION Tramadol HCl (Tramadol HCl) 50 Mg Tablet, 50 MG PO Q8H PRN for PAIN Allergies Coded Allergies: No Known Allergies (Unverified , 02/19/18) A-FIB/CHADSVASC A-FIB History Current/History of A-Fib/PAF?: No Current PO Anticoag Therapy: No COLLETTE ALANIS MD Jun 29, 2020 21:12
[2020-06-29] MEDS ORDERED: POLY17PO18 PO (21:21)
[2020-06-29] MEDS ORDERED: ONDA-83 PO (21:21)
[2020-06-29] MEDS ORDERED: ENOX100I3 SC (21:21)
[2020-06-29] MEDS ORDERED: TRAM50TA2 PO (21:21)
[2020-06-29 22:00] VITALS: BP 109/62
[2020-06-29 22:42] VITALS: BP 106/50
[2020-06-29 23:00] VITALS: BP 133/70
[2020-06-29] MEDS: NYSTATIN 500,000 U/5 ML SUSP UDC SS SCH (23:04)
[2020-06-29] MEDS ORDERED: MIRALAX *UNIT DOSE* 17GM PACKET PO PRN (23:05)
[2020-06-29] MEDS ORDERED: ONDANSETRON 4 MG TAB PO PRN (23:05)
[2020-06-29] MEDS: PREGABALIN 25 MG CAP (LYRICA) PO SCH (23:52)
[2020-06-29] MEDS: traZODone 100 MG TAB PO SCH (23:53)
[2020-06-29] MEDS: LORazepam 1 MG TAB PO SCH (23:54)
[2020-06-29] MEDS: traMADol 50 MG TAB PO PRN (23:54)
[2020-06-29] MEDS: PIPERACILLIN/TAZOBACTAM SOD 3.375 GM in D5W MINI-BAG PLUS 50 ML IV SCH (23:54)
[2020-06-29] MEDS: PROCHLORPERAZINE 25 MG SUPP PR SCH (23:54)
[2020-06-30] VITALS (23 sets, daily range): BP systolic 90–141; BP diastolic 53–81
[2020-06-30 00:17] LABS: APPEARANCE, URINE HAZY (CLEAR); BACTERIA, URINE AUTO 1+ (NEGATIVE); BILIRUBIN, URINE AUTO NEGATIVE (NEGATIVE); BLOOD, URINE BLOOD 1+ (NEGATIVE); COLOR, URINE AMBER (YELLOW); GLUCOSE, URINE (UA) AUTO NEGATIVE (NEGATIVE); KETONE, URINE AUTO NEGATIVE (NEGATIVE); LEUKOCYTE ESTERASE, URINE AUTO NEGATIVE (NEGATIVE); NITRITE, URINE AUTO NEGATIVE (NEGATIVE); PROTEIN, URINE AUTO 1+ mg/dL (NEGATIVE); RBC, URINE AUTO 4 /HPF (0-3); SPECIFIC GRAVITY URINE AUTO 1.015 (1.002-1.035); SQUAMOUS EPITHELIAL CELL UR AU 1 /HPF (0-6); WBC, URINE AUTO 2 /HPF (0-3)
[2020-06-30] MEDS ORDERED: GENTAMICIN 100 MG in IV 1 EA IV SCH (02:00)
[2020-06-30 04:39] LABS: MEAN CORPUSCULAR HEMOGLOBIN 34.2 pg (27.0-33.0); MEAN CORPUSCULAR HGB CONC 34.8 g/dl (32.0-36.5); MEAN CORPUSCULAR VOLUME 98.4 fl (80.0-96.0)
[2020-06-30 04:42] LABS: HEMATOCRIT 18.7 % (42.0-52.0); WHITE BLOOD COUNT 0.5 10^3/uL (4.0-10.0)
[2020-06-30 04:43] LABS: HEMOGLOBIN 6.5 g/dl (13.5-17.5); PLATELET COUNT, AUTOMATED 32 10^3/uL (150-450)
[2020-06-30 05:17] LABS: ALBUMIN 2.7 GM/DL (3.2-5.2); BILIRUBIN,TOTAL 1.6 MG/DL (0.2-1.0); CALCIUM LEVEL 7.4 MG/DL (8.8-10.2); CREATININE FOR GFR 1.81 MG/DL (0.70-1.30); MAGNESIUM LEVEL 1.7 MG/DL (1.8-2.4); POTASSIUM SERUM 3.6 MEQ/L (3.5-5.1); TOTAL PROTEIN 5.2 GM/DL (6.4-8.2)
[2020-06-30] MEDS: PIPERACILLIN/TAZOBACTAM SOD 3.375 GM in D5W MINI-BAG PLUS 50 ML IV SCH (05:21)
[2020-06-30] MEDS: CEFEPIME HCL 2 GM in D5W MINI-BAG PLUS 50 ML IV SCH ×2 (08:49→20:16)
[2020-06-30] MEDS: NYSTATIN 500,000 U/5 ML SUSP UDC SS SCH ×4 (08:50→20:16)
[2020-06-30] MEDS: PROCHLORPERAZINE 25 MG SUPP PR SCH ×3 (08:50→23:00)
[2020-06-30] MEDS: OLANZapine 5 MG TAB PO SCH (08:50)
[2020-06-30] MEDS: LORazepam 1 MG TAB PO SCH ×2 (08:50→20:17)
[2020-06-30] MEDS ORDERED: MAG SULF 1GM/100ML (MAG RUN) 1 GM in IV 1 EA IV ONE (09:00)
[2020-06-30] MEDS ORDERED: FILGRASTIM 300 MCG/0.5 ML SYRINGE (J1442 PER 1MCG) SC SCH (09:00)
[2020-06-30] MEDS ORDERED: ENOXAPARIN 100MG/1ML SYRINGE (J1650 PER 10MG) SC SCH (09:00)
[2020-06-30] MEDS ORDERED: CALCIUM GLUCONATE 1,000 MG in D5W MINI-BAG PLUS 100 ML IV ONE (10:00)
--- NOTE | 2020-06-30 15:35 | IPNPDOC ---
Subjective Date Seen The patient was seen on 06/30/20. Subjective Chief Complaint/HPI Continues to have persistent nausea. Has been refusing his meals. Weak and tired. 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 He finished whole brain radiation and started on chemotherapy on june 21 presented to ED with c/o nausea and vomiting and unable to keep liquids down. He was very weak. He was found to be febrile to 100.8, and pancytopenic with SHERRI. Neutropenic fever will cover with Cefepime and vancomycin. continue Neupogen. Discussed with Oncology Dr Townsend Anemia w thrombocytopenia aim for Hg >7 and Plt >10 SHERRI Likely 2/2 diarrhea, nausea and poor PO intake slightly improved. Hypomagnesemia replaced. RLS vs neuropathy started on lyrica DVT / catheter related thrombosis continue lovenox. port can be removed after 3 months of anticoagulation as per IR. 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 COPD albuterol PRN insomnia on trazodone Plan/VTE VTE Prophylaxis Ordered?: Yes VS, I&O, 24H, Fishbone Vital Signs/I&O Vital Signs Date Time Temp Pulse Resp B/P (MAP) Pulse Ox O2 Delivery O2 Flow Rate FiO2 06/30/20 12:40 97.9 80 16 121/64 96 Nasal Cannula 1.0 I&O- Last 24 Hours up to 6 AM 06/30/20 05:59 Intake Total 3160 ml Output Total 675 ml Balance 2485 ml Laboratory Data 24H LABS Laboratory Tests 2 06/29/20 18:01: Immature Granulocyte % (Auto) 0.0, Neutrophils (%) (Auto) 25.6L, Lymphocytes (%) (Auto) 55.3H, Monocytes (%) (Auto) 17.0H, Eosinophils (%) (Auto) 2.1, Basophils (%) (Auto) 0.0, Neutrophils # (Auto) 0.1L, Lymphocytes # (Auto) 0.3L, Monocytes # (Auto) 0.1, Eosinophils # (Auto) 0.0, Basophils # (Auto) 0.0, Nucleated Red Blood Cells % (auto) 0.0, Immature Platelet Fraction 6.1, Anion Gap 8, Glomerular Filtration Rate 26.1L, Lactic Acid Level 1.2, Calcium Level 8.3L, Total Bilirubin 1.6H, Aspartate Amino Transf (AST/SGOT) 7, Alanine Aminotransferase (ALT/SGPT) 14, Alkaline Phosphatase 65, Total Protein 5.9L, Albumin 3.1L, Albumin/Globulin Ratio 1.1 06/29/20 19:27: Coronavirus (COVID-19)(PCR) NEGATIVE, Influenza Type A (RT-PCR) NEGATIVE, Influenza Type B (RT-PCR) NEGATIVE, Respiratory Syncytial Virus (PCR) NEGATIVE 06/30/20 00:52: Bedside Glucose (Misc Panel) 88 06/30/20 04:27: Nucleated Red Blood Cells % (auto) 0.0, Anion Gap 7L, Glomerular Filtration Rate 40.0L, Calcium Level 7.4L, Total Bilirubin 1.6H, Aspartate Amino Transf (AST/SGOT) 5L, Alanine Aminotransferase (ALT/SGPT) 10L, Alkaline Phosphatase 57, Total Protein 5.2L, Albumin 2.7L, Albumin/Globulin Ratio 1.1, Magnesium Level 1.7L CBC/BMP Laboratory Tests 06/29/20 18:01 06/30/20 04:27 Microbiology Microbiology 06/29/20 Blood Culture, Received Pending 06/29/20 Blood Culture, Received Pending 06/29/20 Blood Culture, Received Pending 06/29/20 Urine Culture, Received Pending AUBREE KEANE MD Jun 30, 2020 15:35
[2020-06-30 17:14] LABS: BASO % 1.3 % (0.0-1.0); HEMATOCRIT 24.4 % (42.0-52.0); HEMOGLOBIN 8.5 g/dl (13.5-17.5); LYMPH # 0.2 10^3/uL (1.5-5.0); MEAN CORPUSCULAR HEMOGLOBIN 32.7 pg (27.0-33.0); MEAN CORPUSCULAR HGB CONC 34.8 g/dl (32.0-36.5); MEAN CORPUSCULAR VOLUME 93.8 fl (80.0-96.0); MONO # 0.1 10^3/uL (0.0-0.8); MONO % 12.5 % (2.0-8.0); NEUTROPHILS % 49.9 % (36.0-66.0)
[2020-06-30 17:33] LABS: NEUTROPHILS # 0.4 10^3/uL (1.5-8.5); PLATELET COUNT, AUTOMATED 30 10^3/uL (150-450); WHITE BLOOD COUNT 0.8 10^3/uL (4.0-10.0)
[2020-06-30] MEDS: traZODone 100 MG TAB PO SCH (20:16)
[2020-06-30] MEDS: PREGABALIN 25 MG CAP (LYRICA) PO SCH (20:17)
[2020-06-30] MEDS: PANTOPRAZOLE 40MG VIAL (C9113 PER 1) IV SCH (20:42)
--- NOTE | 2020-06-30 21:52 | MEDONCENPD ---
Date/Time of Encounter Date of Encounter: Jun 30, 2020 Time of Encounter: 20:00 Encounter Reason for consultation: Pancytopenia in a patient with extensive small cell lung cancer with brain metastases. History of present illness: I had the pleasure of seeing Mr. Arpit Hudson in consultation for pancytopenia due to chemotherapy for extensive small cell lung cancer. As you know Mr. Hudson is a 69-year-old white gentleman who has history of extensive small cell lung cancer with primary in the right upper lung with metastases to brain. He has a history of COPD. He received 4 cycles of chemotherapy with cisplatin and etoposide and also received radiation to brain metastases. He got his last chemotherapy about 2 weeks ago. For last 1 week he has been throwing up with nausea and heartburns. He presented to emergency room yesterday on 06/29/2020 and was found to have temperature of 100.8 with white blood cell count of 0.5 and absolute neutrophil count of 0.1. His hemoglobin was 5.9 and platelets were 7. He was transfused with 3 units of packed red cells and 1 unit of pheresis platelets. He was initially started on gentamicin but currently he is on vancomycin and Ceftin. He is getting IV hydration and is feeling a little better now. A bothersome thing is his heartburn and he is not on any PPI. Overall he is stable. He denies cough or phlegm or wheezing. He does not have headache dizziness or blackouts. He has no urinary symptoms. Past medical history: COPD Prostate cancer Extensive small cell Lung cancer Past surgical history: Fracture of the right arm Fracture of the left from 2013 Port placement Family history: Mother, breast cancer and COPD Father at the age of 80 dementia and COPD Brother at the age of 81 due to stroke Sister committed suicide 3 children are alive and well Social history: Smoked 1 pack per day for 51 years Drinks 4 where a week Physical examination: Gen.: Slightly distressed because of nausea and heartburns and weakness. His bilirubin but no jaundice or cyanosis no clubbing or currently HEENT WNL EOMI oral cavity clear without mucositis or thrush Cardiac: RRR there is no murmur Lungs: Diminished air entry bilaterally. No gross crackles or wheezing Extremities: No swelling or pedal edema Neurological: No focal sensory or motor deficit CN II 12 intact Lymph node survey: None palpable in cervical, supraclavicular, axillary or inguinal region Psychiatric: Slightly anxious and depressed and distressed because of feeling of nausea all the time Labs: 06/29/2020 WBC 0.6 hemoglobin 5.9 hematocrit 17.1 and platelet count 7 absolute neutrophil count 0.1 06/29/2020. WBC 0.8 hemoglobin 8.5 platelet count 30 absolute neutrophil count 400 platelet count 30,000 Chemistry. GFR 26.1 LFTs normal total bilirubin 1.6 Assessment and suggestions: Jason is a 69-year-old white gentleman who has extensive small cell lung cancer with brain metastases. 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 He is admitted yesterday with not feeling well nausea vomiting abdominal pain and was found to be pancytopenic. He also had fever. He has blood cultures drawn and has been started on vancomycin and Ceftin. Following is suggested #1. Continue current antibiotics including vancomycin and Ceftin. Once patient is afebrile and absolute neutrophil come above 500 vancomycin can be discontinued and Ceftin may be switched to oral antibiotics in the form of either ciprofloxacin 500 mg twice daily or levofloxacin once a day. #2. Dose of Neupogen will be increased from 300 to 480 g subcutaneous daily. This should continue until absolute neutrophil comes above 5000. #3. Patient should be started on recombinant erythropoietin 40,000 international unit X 1 dose now(will be ordered). #4. And protonex 40 mg IV daily I would like to thank Dr. Avila for this consultation and giving me the opportunity to participate in the management of this nice patient. AJAY NELSON MD Jun 30, 2020 21:52
[2020-06-30] MEDS ORDERED: EPOETIN 40,000 UNIT 1ML VIAL (PROCRIT) (J0885 PER 1,000UNITS)(FOR ONCOLO) SC ONE (22:30)
[2020-06-30] MEDS: VANCOMYCIN HCL 1,000 MG, VIAL MATE ADAPTER 1 EACH in NS 250 ML IV SCH (22:57)
[2020-07-01] VITALS (9 sets, daily range): BP systolic 106–145; BP diastolic 55–79
[2020-07-01 05:18] LABS: HEMATOCRIT 24.4 % (42.0-52.0); HEMOGLOBIN 8.4 g/dl (13.5-17.5); MEAN CORPUSCULAR HEMOGLOBIN 32.7 pg (27.0-33.0); MEAN CORPUSCULAR HGB CONC 34.4 g/dl (32.0-36.5); MEAN CORPUSCULAR VOLUME 94.9 fl (80.0-96.0); RED BLOOD COUNT 2.57 10^6/uL (4.30-6.10); WHITE BLOOD COUNT 1.3 10^3/uL (4.0-10.0)
[2020-07-01 05:20] LABS: PLATELET COUNT, AUTOMATED 21 10^3/uL (150-450)
[2020-07-01 05:43] LABS: ATYPICAL LYMPH 5 % (0-5); EOSINOPHILS 1 % (0-3); LYMPHOCYTES 23 % (16-44); METAMYELOCYTES 2 % (0-0); MONOCYTES 6 % (0-5); MYELOCYTES 2 % (0-0); NEUTROPHILS 57 % (28-66); PLATELET ESTIMATE MARKED DECREASE (NORMAL)
[2020-07-01 05:44] LABS: ANISOCYTOSIS 2+; POIKILOCYTOSIS 1+; POLYCHROMASIA 1+
[2020-07-01 05:46] LABS: DOHLE BODIES 1+
[2020-07-01 05:48] LABS: BLOOD UREA NITROGEN 24 MG/DL (7-18); CALCIUM LEVEL 8.1 MG/DL (8.8-10.2); CARBON DIOXIDE LEVEL 27 MEQ/L (21-32); CHLORIDE LEVEL 109 MEQ/L (98-107); CREATININE FOR GFR 1.25 MG/DL (0.70-1.30); GLOMERULAR FILTRATION RATE > 60.0 (>49); GLUCOSE, FASTING 99 MG/DL (70-100); POTASSIUM SERUM 3.6 MEQ/L (3.5-5.1); SODIUM LEVEL 141 MEQ/L (136-145)
--- NOTE | 2020-07-01 05:56 | IPNPDOC ---
Subjective Date Seen The patient was seen on 07/01/20. Subjective Chief Complaint/HPI I was informed by nursing that @05:24 that his plt is at a critical value of 21. his H/H is stable and there's no signs of active bleeding. He's on therapeutic lovenox currently for DVT likely 2/[address] Townsend, patient's oncologist was contacted by ICU nurse and he recommends to transfuse with 1 bag of pheresis plt. It seems that this thrombocytopenia is multifactorial, as pt is being treated with sepsis/neutropenic fever and currently on abx. Immature plt fraction pending. there's a possibility of HIIT as his 4Ts put him at intermediate risk. I will order for HIT antibody testing and serotonin release assay and a heparin induced plt aggregation markers. I recommend d/c'ing his therapuetic lovenox for now. As per Dr. Townsend recommendation via phone (confirmed by nursing), he is also okay with discontinuing his lovenox for now. I have ordered TEDs and SCDs. Am team to assess further post plt transfusion. Thank you Dr. Townsend as our talent development consultant on this matter- further recommendations appreciated and am team to follow up as needed. Objective Physical Examination General Exam: Positive: Alert, Cooperative, No Acute Distress Eye Exam: Positive: Conjunctiva & lids normal, EOMI, Sclera icteric ENT Exam: Positive: Atraumatic, Pharynx Normal, Tongue Midline Chest Exam: Positive: Clear to auscultation, Normal air movement Heart Exam: Positive: Rate Normal, Regular Rhythm, Normal S1, Normal S2, Murmurs (systolic); Negative: Rubs Abdomen Exam: Positive: Normal bowel sounds, Soft; Negative: Tenderness, Hepatospenomegaly Extremity Exam: Negative: Clubbing, Cyanosis, Edema Assessment /Plan Plan/VTE VTE Prophylaxis Ordered?: Yes VS, I&O, 24H, Fishbone Vital Signs/I&O Vital Signs Date Time Temp Pulse Resp B/P (MAP) Pulse Ox O2 Delivery O2 Flow Rate FiO2 07/01/20 04:00 98.1 78 18 109/65 (80) 98 Room Air 06/30/20 12:40 1.0 I&O- Last 24 Hours up to 6 AM 07/01/20 06:00 Intake Total 2130 ml Output Total 1025 ml Balance 1105 ml Laboratory Data 24H LABS Laboratory Tests 2 06/30/20 16:58: Immature Granulocyte % (Auto) 16.3H, Neutrophils (%) (Auto) 49.9, Lymphocytes (%) (Auto) 20.0L, Monocytes (%) (Auto) 12.5H, Eosinophils (%) (Auto) 0.0, Basophils (%) (Auto) 1.3H, Neutrophils # (Auto) 0.4L, Lymphocytes # (Auto) 0.2L, Monocytes # (Auto) 0.1, Eosinophils # (Auto) 0.0, Basophils # (Auto) 0.0, Nucleated Red Blood Cells % (auto) 0.0 07/01/20 04:56: Immature Granulocyte % (Auto) , Neutrophils (%) (Auto) , Neutrophils # (Auto) , Nucleated Red Blood Cells % (auto) 0.0, Neutrophils 57, Band Neutrophils 4, Lymphocytes (Manual) 23, Monocytes (Manual) 6H, Eosinophils (Manual) 1, Metamyelocytes 2H, Myelocytes 2H, Atypical Lymphocytes 5, Polychromasia 1+, Poikilocytosis 1+, Anisocytosis 2+, Dohle Bodies 1+, Platelet Estimate MARKED DECREASE, Immature Platelet Fraction 3.9 CBC/BMP Laboratory Tests 06/30/20 16:58 07/01/20 04:56 Microbiology Microbiology 06/29/20 Blood Culture - Preliminary, Resulted No growth after 24 hours . All specim... 06/29/20 Blood Culture - Preliminary, Resulted No growth after 24 hours . All specim... 06/29/20 Blood Culture - Preliminary, Resulted No growth after 24 hours . All specim... 06/29/20 Urine Culture, Received Pending GME ATTESTATION GME ATTESTATION My faculty preceptor for this patient encounter was physically present during the encounter and was fully available. All aspects of the patient interview, examination, medical decision making process, and medical care plan development were reviewed and approved by the faculty preceptor. The faculty preceptor is aware and concurs with the plan as stated in the body of this note and will attest to such by his/her cosignature. Ritu Scott DO Jul 01, 2020 05:56
[2020-07-01] MEDS: LORazepam 1 MG TAB PO SCH ×2 (08:48→20:25)
[2020-07-01] MEDS: PROCHLORPERAZINE 25 MG SUPP PR SCH (08:48)
[2020-07-01] MEDS: PANTOPRAZOLE 40MG VIAL (C9113 PER 1) IV SCH ×2 (08:48→20:25)
[2020-07-01] MEDS: NYSTATIN 500,000 U/5 ML SUSP UDC SS SCH ×4 (08:48→20:26)
[2020-07-01] MEDS: OLANZapine 5 MG TAB PO SCH (08:48)
[2020-07-01] MEDS: CEFEPIME HCL 2 GM in D5W MINI-BAG PLUS 50 ML IV SCH ×2 (08:48→20:26)
[2020-07-01] MEDS: ONDANSETRON 4MG/2ML VIAL IV PRN ×3 (08:51→20:25)
[2020-07-01] MEDS ORDERED: FILGRASTIM 300 MCG/0.5 ML SYRINGE (J1442 PER 1MCG) SC SCH (09:00)
--- NOTE | 2020-07-01 09:41 | IPNPDOC ---
Subjective Date Seen The patient was seen on 07/01/20. Subjective Chief Complaint/HPI Feels much better. He reports today the first time in 87 days he has no nausea, feeling hungry and feels like eating. He ordered breakfast today. Has bowel movement. No fever. 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 He finished whole brain radiation and started on chemotherapy in April 2020 and last dose on june 21 presented to ED with c/o persistent nausea and vomiting unable to keep liquids down. He was very weak . He was also constipated at home. He was found to be febrile to 100.8, and pancytopenic with SHERRI. Neutropenic fever continue Cefepime and vancomycin for 1 more day and provided ANC remains above 500 can be switched to PO antibiotic Levo or cipro. continue Neupogen daily till ANC > 5000 Epogen 07128 unit once a week Discussed with Oncology Dr Townsend on 07/01/20 about this plan follow up with oncology in 1-2 days after discharge. Anemia w thrombocytopenia aim for Hg >7 and Plt >10 Lovenox stopped as platelet so low. SHERRI Likely 2/2 diarrhea, nausea and poor PO intake improved. Hypomagnesemia replaced. 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 port can be removed after 3 months of anticoagulation as per IR. 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 On ativan and olanzepine and prochlorperazine for nausea as outpatient have also ordered IV zofran. COPD albuterol PRN insomnia on trazodone Plan/VTE VTE Prophylaxis Ordered?: Yes VS, I&O, 24H, Fishbone Vital Signs/I&O Vital Signs Date Time Temp Pulse Resp B/P (MAP) Pulse Ox O2 Delivery O2 Flow Rate FiO2 07/01/20 07:21 97.6 75 16 107/55 (72) 97 Room Air 06/30/20 12:40 1.0 I&O- Last 24 Hours up to 6 AM 07/01/20 06:00 Intake Total 2130 ml Output Total 1025 ml Balance 1105 ml Laboratory Data 24H LABS Laboratory Tests 2 06/30/20 16:58: Immature Granulocyte % (Auto) 16.3H, Neutrophils (%) (Auto) 49.9, Lymphocytes (%) (Auto) 20.0L, Monocytes (%) (Auto) 12.5H, Eosinophils (%) (Auto) 0.0, Basophils (%) (Auto) 1.3H, Neutrophils # (Auto) 0.4L, Lymphocytes # (Auto) 0.2L, Monocytes # (Auto) 0.1, Eosinophils # (Auto) 0.0, Basophils # (Auto) 0.0, Nucleated Red Blood Cells % (auto) 0.0 07/01/20 04:56: Immature Granulocyte % (Auto) , Neutrophils (%) (Auto) , Neutrophils # (Auto) , Nucleated Red Blood Cells % (auto) 0.0, Neutrophils 57, Band Neutrophils 4, Lymphocytes (Manual) 23, Monocytes (Manual) 6H, Eosinophils (Manual) 1, Metamyelocytes 2H, Myelocytes 2H, Atypical Lymphocytes 5, Polychromasia 1+, Poikilocytosis 1+, Anisocytosis 2+, Dohle Bodies 1+, Platelet Estimate MARKED DECREASE, Immature Platelet Fraction 3.9, Anion Gap 5L, Glomerular Filtration Rate > 60.0, Calcium Level 8.1L 07/01/20 06:23: CBC/BMP Laboratory Tests 06/30/20 16:58 07/01/20 04:56 Microbiology Microbiology 06/29/20 Blood Culture - Preliminary, Resulted No growth after 24 hours . All specim... 06/29/20 Blood Culture - Preliminary, Resulted No growth after 24 hours . All specim... 06/29/20 Blood Culture - Preliminary, Resulted No growth after 24 hours . All specim... 06/29/20 Urine Culture - Final, Complete AUBREE KEANE MD Jul 01, 2020 09:41
[2020-07-01] MEDS: APIXABAN 5 MG TAB (ELIQUIS) PO SCH ×2 (11:20→20:26)
[2020-07-01] MEDS: FILGRASTIM 480 MCG/0.8 ML SYRINGE (J1442) SC SCH (11:20)
[2020-07-01] MEDS: traMADol 50 MG TAB PO PRN (15:53)
[2020-07-01] MEDS ORDERED: PROCHLORPERAZINE 10MG/2ML VIAL (J0780 PER 1) IV PRN (16:00)
[2020-07-01] MEDS: traZODone 100 MG TAB PO SCH (20:25)
[2020-07-01] MEDS: PREGABALIN 25 MG CAP (LYRICA) PO SCH (20:26)
[2020-07-01] MEDS: VANCOMYCIN HCL 1,000 MG, VIAL MATE ADAPTER 1 EACH in NS 250 ML IV SCH (23:03)
[2020-07-02] VITALS: BP 129/65
[2020-07-02 04:00] VITALS: BP 101/68
[2020-07-02 05:20] LABS: HEMATOCRIT 23.4 % (42.0-52.0); HEMOGLOBIN 8.1 g/dl (13.5-17.5); MEAN CORPUSCULAR HEMOGLOBIN 32.8 pg (27.0-33.0); MEAN CORPUSCULAR HGB CONC 34.6 g/dl (32.0-36.5); MEAN CORPUSCULAR VOLUME 94.7 fl (80.0-96.0); RED BLOOD COUNT 2.47 10^6/uL (4.30-6.10); WHITE BLOOD COUNT 2.9 10^3/uL (4.0-10.0)
[2020-07-02 05:24] LABS: PLATELET COUNT, AUTOMATED 24 10^3/uL (150-450)
[2020-07-02 05:46] LABS: ANISOCYTOSIS 1+; LYMPHOCYTES 9 % (16-44); METAMYELOCYTES 1 % (0-0); MONOCYTES 6 % (0-5); NEUTROPHILS 81 % (28-66); PLATELET ESTIMATE MARKED DECREASE (NORMAL); POLYCHROMASIA 1+
[2020-07-02 05:47] LABS: DOHLE BODIES 2+; POIKILOCYTOSIS 1+
[2020-07-02 05:52] LABS: BLOOD UREA NITROGEN 18 MG/DL (7-18); CALCIUM LEVEL 8.2 MG/DL (8.8-10.2); CARBON DIOXIDE LEVEL 30 MEQ/L (21-32); CHLORIDE LEVEL 110 MEQ/L (98-107); CREATININE FOR GFR 1.17 MG/DL (0.70-1.30); GLOMERULAR FILTRATION RATE > 60.0 (>49); GLUCOSE, FASTING 92 MG/DL (70-100); POTASSIUM SERUM 3.5 MEQ/L (3.5-5.1); SODIUM LEVEL 142 MEQ/L (136-145)
[2020-07-02] MEDS ORDERED: LevoFLOXacin 750 MG TABLET PO SCH (06:00)
[2020-07-02 07:43] VITALS: BP 124/68
[2020-07-02] MEDS ORDERED: PANTOPRAZOLE 40MG TAB (PROTONIX) PO SCH (09:00)
[2020-07-02] MEDS: PANTOPRAZOLE 40MG VIAL (C9113 PER 1) IV SCH (09:00)
[2020-07-02] MEDS ORDERED: SLF 3 ML SYR IV PRN (09:05)
[2020-07-02] MEDS: NYSTATIN 500,000 U/5 ML SUSP UDC SS SCH ×2 (09:37→13:00)
[2020-07-02] MEDS: OLANZapine 5 MG TAB PO SCH (09:37)
[2020-07-02] MEDS: FILGRASTIM 480 MCG/0.8 ML SYRINGE (J1442) SC SCH (09:38)
[2020-07-02] MEDS: APIXABAN 5 MG TAB (ELIQUIS) PO SCH (09:38)
[2020-07-02] MEDS: LORazepam 1 MG TAB PO SCH (09:38)
[2020-07-02] MEDS ORDERED: ONDANSETRON 4 MG TAB PO PRN (10:00)
[2020-07-02] MEDS ORDERED: PREG25CA PO (10:09)
[2020-07-02] MEDS ORDERED: PANT40TA29 PO (10:09)
[2020-07-02] MEDS ORDERED: NYST50SS SS (10:09)
[2020-07-02] MEDS ORDERED: ELIQ5TAB PO (10:09)
[2020-07-02] MEDS ORDERED: LEVO750T13 PO (10:09)
[2020-07-02] MEDS ORDERED: VANCOMYCIN HCL 1,000 MG, VIAL MATE ADAPTER 1 EACH in NS 250 ML IV SCH (11:00)
[2020-07-02] MEDS ORDERED: ONDA-83 PO (11:32)
--- NOTE | 2020-07-02 11:33 | DS.PDOC ---
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 He received 4 cycles of chemotherapy with cisplatin and etoposide and also received radiation to brain metastases. He got his last chemotherapy about in early 06/2020 and had acute on chronic worsening of his N/V as well as heartburn with poor PO and weakness that prompted ED evaluation. HOSPITAL COURSE: He presented to emergency room on 06/29/2020 and was found to have temperature of 100.8 with white blood cell count of 0.5 and absolute neutrophil count of 0.1. His hemoglobin was 5.9 and platelets were 7. He was transfused with 3 units of packed red cells and 1 unit of pheresis platelets. He was placed on empiric vancomycin and cefepime, given IV hydration. While in patient, he was started on IV PPI for severe heartburn i/s/o steroid therapy, neupogen per oncology for pancytopenia with improvement of ANC to ~1.7 by the time of discharge with plan for close oncology follow up for likely Neulasta in the outpatient setting, and eventually switched to empiric levaquin to complete a 10d course for neutropenic fever when ANC was >500. He expressed that he wishes to stop chemotherapy at this time and a home hospice consult was placed as he lives alone and disease will likely progress. He was also started on low dose lyrica for RLS and neuropathy. He is also being discharged home on eliquis despite thrombocytopenia for the catheter related thrombosis per the recommendation of heme/onc. DISCHARGE MEDICATIONS: Please see below. ALLERGIES: Please see below. PHYSICAL EXAMINATION ON DISCHARGE: VITAL SIGNS: Please see below. GENERAL APPEARANCE: well nourished and developed/ NAD HEENT: EOMI /no scleral icterus / MMM&P CARDIOVASCULAR: RRR/NMRG LUNGS: CTAB on RA ABDOMEN: obese / soft & NT MUSCULOSKELETAL:RADHA x 4 INTEGUMENT: slightly pale NEUROLOGICAL: speech not dysarthric PSYCHIATRIC: A&O / able to understand and follow all commands LABORATORY DATA: Please see below. IMAGING: CXR: The lungs are symmetrically aerated and clear. Heart size is normal. Pleural angles are sharp. Pulmonary vasculature is not increased. There is a right-sided Yxrfjw-Q-[id number] catheter with its tip in the expected location of the superior vena cava. EKG monitoring electrodes are noted. IMPRESSION: No active disease. PROGNOSIS: Poor, with metastatic cancer and plan for no further cancer treatment ACTIVITY: As tolerated. DIET: regular, as tolerated DISCHARGE PLAN: Home with referral to home hospice DISPOSITION: Home with referral to home hospice DISCHARGE INSTRUCTIONS: Home with referral to home hospice ITEMS TO FOLLOWUP ON ON OUTPATIENT: Metastatic cancer, referral to home hospice and oncology follow up DISCHARGE CONDITION: Stable TIME SPENT ON DISCHARGE: 40 minutes. Vital Signs/I&Os Vital Signs Date Time Temp Pulse Resp B/P (MAP) Pulse Ox O2 Delivery O2 Flow Rate FiO2 07/02/20 07:43 98.9 75 20 124/68 (86) 90 07/02/20 04:00 Room Air 06/30/20 12:40 1.0 I&O- Last 24 Hours up to 6 AM 07/02/20 06:00 Intake Total 1581 ml Output Total 0 ml Balance 1581 ml Laboratory Data Labs 24H Laboratory Tests 2 07/01/20 22:05: Vancomycin Level Trough 7.6L 07/02/20 05:07: Immature Granulocyte % (Auto) , Neutrophils (%) (Auto) , Nucleated Red Blood Cells % (auto) 0.0, Neutrophils 81H, Band Neutrophils 3, Lymphocytes (Manual) 9L, Monocytes (Manual) 6H, Metamyelocytes 1H, Polychromasia 1+, Poikilocytosis 1+, Anisocytosis 1+, Dohle Bodies 2+, Platelet Estimate MARKED DECREASE, Immature Platelet Fraction 3.5, Anion Gap 2L, Glomerular Filtration Rate > 60.0, Calcium Level 8.2L CBC/BMP Laboratory Tests 07/02/20 05:07 Microbiology Microbiology 06/29/20 Blood Culture - Preliminary, Resulted No Growth after 48 hours. All Specime... 06/29/20 Blood Culture - Preliminary, Resulted No Growth after 48 hours. All Specime... 06/29/20 Blood Culture - Preliminary, Resulted No Growth after 48 hours. All Specime... 06/29/20 Urine Culture - Final, Complete Discharge Medications Scheduled Apixaban (Eliquis) 5 Mg Tablet, 5 MG PO BID Dexamethasone (Dexamethasone) 4 Mg Tablet, 4 MG PO DAILY Enoxaparin Sodium (Enoxaparin Sodium) 100 Mg/1 Ml Syringe, 90 MG SC Q12H, (Reported) Levofloxacin (Levofloxacin) 750 Mg Tablet, 750 MG PO DAILY@06 Lorazepam (Lorazepam) 1 Mg Tablet, 1 TAB PO BID Nystatin (Nystatin Oral Susp) 100,000 Unit/1 Ml Oral.susp, 5 ML SS QID Olanzapine (Olanzapine) 5 Mg Tablet, 1 TAB PO DAILY for Chemo induced nausea Pantoprazole Sodium (Pantoprazole Sodium) 40 Mg Tablet.dr, 40 MG PO BID Pregabalin (Lyrica) 25 Mg Capsule, 25 MG PO QHS Prochlorperazine (Prochlorperazine) 25 Mg Supp.rect, 1 SUP VA Q8H Trazodone HCl (Trazodone HCl) 50 Mg Tab, 200 MG PO QHS, (Reported) RX STATES UP TO 5 TABLETS QHS PRN Scheduled PRN Ondansetron HCl (Ondansetron HCl) 4 Mg Tablet, 4 MG PO TID PRN for NAUSEA OR VOMITING Polyethylene Glycol 3350 (Polyethylene Glycol 3350) 17 Gm Powd.pack, 1 PKT PO DAILY PRN for CONSTIPATION, (Reported) Tramadol HCl (Tramadol HCl) 50 Mg Tablet, 50 MG PO Q8H PRN for PAIN, (Reported) Allergies Coded Allergies: No Known Allergies (Unverified , 02/19/18) BRITT AKERS MD Jul 02, 2020 10:21
--- NOTE | 2020-07-02 11:34 | IPNPDOC ---
Text Note Date of Service The patient was seen on 07/02/20. NOTE SUBJECTIVE: -No acute events overnight. Afebrile, HDS -No nausea, abdominal pain OBJECTIVE: General: Alert, Cooperative, No Acute Distress Eyes: Conjunctiva & lids normal, EOMI, icteric sclerae ENT: Atraumatic, Pharynx Normal Chest: Clear to auscultation, Normal air movement Heart: Rate Normal, Regular Rhythm, Normal S1, Normal S2, 2/6 systolic murmur, no rubs Abdomen: Normal bowel sounds, soft, NTND Extremities: no edema, WWP Labs: Reviewed WBC 2.9 ANC 1700 hgb 8.1 platelets 24 Na 142 K 3.5 Cr 1.17 Assessment: 69 yr old M with metastatic Small Cell Lung Cancer of the right upper lobe w/ mets to the brain, COPD, h/o Prostate cancer s/p radiation, DVT in may of the right IJ and subclavian vein with right-sided port placed at [facility], s/p whole brain radiation and started on chemotherapy in April 2020 and last dose on june 21, who presented to ED with c/o persistent nausea and vomiting unable to take PO and found to febrile with pancytopenia and admitted for neutropenic fever. Neutropenic fever: -Discontinue Cefepime and vancomycin as ANC remains above 500, switched to PO levaquin today -continue Neupogen daily till ANC > 5000. If close to discharge, will need neulasta at discharge if ANC not yet at target -Epogen 09220 unit once a week -Discussed with Oncology Dr Townsend on 07/01/20 about above plan -follow up with oncology in 1-2 days after discharge Anemia w thrombocytopenia -Goal Hg >7 and Plt >10 -After discussion with Dr. Townsend, to be placed on eliqius despite thrombocytopenia for DVT SHERRI, improved. 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 -port can be removed after 3 months of anticoagulation as per IR. 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 -On ativan and olanzepine and prochlorperazine for nausea as outpatient -Also placed on PRN IV zofran -Hospice consult placed, as well as pallcare but aware that she is now department store general manager and unlikely to see while inpatient. COPD -albuterol PRN insomnia -on trazodone DVT ppx: on eliquis VS,Fishbone, I+O VS, Fishbone, I+O Laboratory Tests 07/02/20 05:07 Vital Signs Date Time Temp Pulse Resp B/P (MAP) Pulse Ox O2 Delivery O2 Flow Rate FiO2 07/02/20 07:43 98.9 75 20 124/68 (86) 90 07/02/20 04:00 Room Air 06/30/20 12:40 1.0 I&O- Last 24 Hours up to 6 AM 07/02/20 06:00 Intake Total 1581 ml Output Total 0 ml Balance 1581 ml BRITT AKERS MD Jul 02, 2020 09:11
[2020-07-02] MEDS ORDERED: SLF 3 ML SYR IV SCH (14:00)
== END 2020-07-02 14:25 | disposition home health service (06) | DRG 871 ==
LOC: M ED 16:52 → M ED INP 21:17 → M ICU 21:57 → M PCU 07-01 07:14
PROVIDERS: ADMIT Internal Medicine; ATTEND Internal Medicine
PROC: 30233N1 Transfusion of Nonautologous Red Blood Cells into Peripheral Vein, Percutaneous Approach (ICD-10-PCS; principal; 2020-06-29)
PROC: 30233R1 Transfusion of Nonautologous Platelets into Peripheral Vein, Percutaneous Approach (ICD-10-PCS; 2020-06-29)
DX: A41.9 Sepsis, unspecified organism (principal); D61.810 Antineoplastic chemotherapy induced pancytopenia; C34.11 Malignant neoplasm of upper lobe, right bronchus or lung; C79.31 Secondary malignant neoplasm of brain; N17.9 Acute kidney failure, unspecified; T82.868A Thrombosis due to vascular prosthetic devices, implants and grafts, initial encounter; J44.9 Chronic obstructive pulmonary disease, unspecified; Z85.46 Personal history of malignant neoplasm of prostate; Z92.21 Personal history of antineoplastic chemotherapy; Z92.3 Personal history of irradiation; G25.81 Restless legs syndrome; G62.9 Polyneuropathy, unspecified; Z79.899 Other long term (current) drug therapy; Z87.891 Personal history of nicotine dependence; Y83.1 Surgical operation with implant of artificial internal device as the cause of abnormal reaction of the patient, or of later complication, without mention of misadventure at the time of the procedure

== ENCOUNTER 2020-07-17 11:17 | Emergency (ER) | payer OTHER ==
[~2020-07-17] VITALS: Ht 182.9 cm; Wt 88.4 kg
[~2020-07-17 11:17] MED LIST changes: +ELIQ5TAB PO; +LEVO750T13 PO; +NYST50SS SS; +PANT40TA29 PO; +PREG25CA PO
[2020-07-17] MEDS ORDERED: NS 1,000 ML IV SCH (11:35)
[2020-07-17 12:06] LABS: BASO % 0.1 % (0.0-1.0); HEMATOCRIT 30.9 % (42.0-52.0); HEMOGLOBIN 10.3 g/dl (13.5-17.5); LYMPH # 0.8 10^3/uL (1.5-5.0); LYMPH % 11.2 % (24.0-44.0); MEAN CORPUSCULAR HEMOGLOBIN 33.9 pg (27.0-33.0); MEAN CORPUSCULAR HGB CONC 33.3 g/dl (32.0-36.5); MEAN CORPUSCULAR VOLUME 101.6 fl (80.0-96.0); MONO # 0.2 10^3/uL (0.0-0.8); MONO % 2.7 % (2.0-8.0); NEUTROPHILS # 6.1 10^3/uL (1.5-8.5); NEUTROPHILS % 85.3 % (36.0-66.0); PLATELET COUNT, AUTOMATED 193 10^3/uL (150-450); RED BLOOD COUNT 3.04 10^6/uL (4.30-6.10); WHITE BLOOD COUNT 7.1 10^3/uL (4.0-10.0)
[2020-07-17 12:29] LABS: ALBUMIN 3.5 GM/DL (3.2-5.2); BILIRUBIN,DIRECT 0.2 MG/DL (0.0-0.2); BILIRUBIN,TOTAL 0.7 MG/DL (0.2-1.0); TOTAL PROTEIN 6.4 GM/DL (6.4-8.2)
--- NOTE | 2020-07-17 12:58 | REP ---
INDICATION: generalized pain, metastatic squamous cell lung, arf. COMPARISON: 03/03/2020 from an outside institution and the latest prior. TECHNIQUE: Limited noncontrast enhanced ended helical technique. FINDINGS: The mediastinum and pulmonary allyson are unchanged. No gross mass or adenopathy has developed. There is no significant change in appearance of the imaged upper abdomen or imaged osseous structures. Chronic pancreatic calcifications are again noted along with chronic left renovascular calcifications. Evaluation of the lung dejesus shows chronic changes with scattered parenchymal bulla and pleural blebs and again seen with upper lobe predominance. No new abnormal nodules, masses, or opacities have developed. IMPRESSION: Stable appearing mild to moderate chronic lung field changes as described above. There is no evidence of acute disease. <Electronically signed by Erickson Gallagher > 07/17/20 [id number]
[2020-07-17 13:04] LABS: CALCIUM LEVEL 9.6 MG/DL (8.8-10.2); CREATININE FOR GFR 1.55 MG/DL (0.70-1.30); GLOMERULAR FILTRATION RATE 47.8 (>49); MAGNESIUM LEVEL 2.1 MG/DL (1.8-2.4); POTASSIUM SERUM 4.1 MEQ/L (3.5-5.1)
--- NOTE | 2020-07-17 13:09 | REP ---
INDICATION: generalized pain, metastatic squamous cell lung, arf. COMPARISON: 06/24/2020 a contrast-enhanced CT TECHNIQUE: Noncontrast enhanced helical CT FINDINGS: Limited evaluation of the solid intra-organs and gallbladder show no gross abnormalities or significant changes from the prior exam. Chronic pancreatic calcifications are noted status quo. Chronic bilateral renovascular calcifications are again noted. Limited evaluation of the abdominal aorta and para-regions show no significant changes from the prior exam. Calcific atherosclerotic changes again seen in the abdominal aorta and in the common iliac arteries where there is bilateral iliac arterial ectasia status quo. There is a small unchanged adipose containing umbilical hernia. There is no significant change in appearance of the bowel loops or the mesenteries. No free fluid or free air is present. There is no evidence of a mass or adenopathy. There is no evidence of an adrenal gland abnormality. There is no significant change in appearance of the imaged osseous structures. IMPRESSION: Although this noncontrast enhanced CT is limited when compared to the prior contrast enhanced examination of 06/04/2020 there does not appear to be a significant change in the findings. There is an infra renal abdominal aortic aneurysm stable appearing by size criteria but poorly evaluated without intravenous contrast. If an aortic dissection is of clinical concern then a contrast-enhanced examination would be in order. Other findings and chronic changes are also noted as described above. There is no evidence of acute disease. <Electronically signed by Erickson Gallagher > 07/17/20 [id number]
[2020-07-17] MEDS ORDERED: NS 500 ML IV ONE (14:25)
[2020-07-17 15:31] VITALS: BP 143/85
[2020-07-17] MEDS ORDERED: NYST50SS PO (16:07)
== END 2020-07-17 16:37 | disposition home or self-care (01) ==
LOC: M ED 11:17
DX: E86.0 Dehydration (principal); J44.9 Chronic obstructive pulmonary disease, unspecified; C34.90 Malignant neoplasm of unspecified part of unspecified bronchus or lung; C79.31 Secondary malignant neoplasm of brain; Z79.899 Other long term (current) drug therapy; Z79.01 Long term (current) use of anticoagulants; F17.210 Nicotine dependence, cigarettes, uncomplicated

== ENCOUNTER → 2020-07-24 | Outpatient (CLI) | payer OTHER ==
[~2020-07-24] MED LIST changes: +NYST50SS PO
--- NOTE | 2020-07-24 14:53 | RADENCPD ---
Date/Time of Encounter Date of Encounter: Jul 24, 2020 Time of Encounter: 14:42 Encounter Met with Arpit briefly today prior to start of his immunotherapy. His 07/17/20 body scans are without evidence of recurrent or progressive disease. He asked about his staging, I explained that based on the low volume brain metastases present (2 x 4 mm) at the time of diagnosis he is ES by the textbook, but in actuality he is probably closer to LS on the prognostic spectrum given his thorax-only extra-FEED WEIGHER disease. He asked about prognosis and I stated that ~15% of patients with LS disease live 5 years or more, I think for him it is reasonable to consider this figure as an optimistic one (as opposed to the ~ 10 month median OS for ES SCLC patients). We reviewed his treatment to date which has been standard of care WBRT w/ namenda, then [place] doublet chemotherapy x 4 cycles and concurrent chest RT. I concur with the recommendation to proceed with adjuvant immunotherapy on the basis of several promising studies (including the recent CASPIAN trial) which demonstrated an OS advantage to adjuvant immunotherapy in ES SCLC. He was happy to receive the information and is set to go forward with im munotherapy. I will see him in August with MRI head for brain surveillance CHRIS ECKERT MD Jul 24, 2020 14:53
--- NOTE | 2020-08-10 15:03 | RADENCPD ---
Date/Time of Encounter Date of Encounter: August 10, 2020 Time of Encounter: 14:59 Encounter Called MRI results to Arpit. The previously identified lesions have resolved. There is a possible new lesion in the right cerebellum which is 0.3 cm, indeterminate. We discussed repeating the study in 2 months and if this spot grows or others manifest we will proceed with SRS. He is feeling well overall. I called in scripts for his ativan and lidocaine to [facility]. He is scheduled to see me on 09/19/20, I offered to move this appointment until after the next MRI, he would prefer to keep this follow up, which is fine by me. CHRIS ECKERT MD August 10, 2020 15:03
== END ==
LOC: M ONCR 13:09
PROVIDERS: ATTEND General Practice
DX: C34.91 Malignant neoplasm of unspecified part of right bronchus or lung (principal); C79.31 Secondary malignant neoplasm of brain

== ENCOUNTER → 2020-08-08 | Outpatient (CLI) | payer OTHER ==
[~2020-08-08] MED LIST changes: +PROHANCE 279.3MG/ML 15ML VIAL As Ordered ONE; +PROHANCE 279.3MG/ML 5ML VIAL As Ordered ONE
--- NOTE | 2020-08-08 17:09 | REP ---
INDICATION: LUNG CA W/ BRAIN METS. COMPARISON: Comparison MRI study is from 12 April 2020.. TECHNIQUE: Axial and sagittal imaging planes are utilized for T1 and T2-weighted scans. Sequences include spin-echo, fast spin echo, FLAIR, and diffusion weighted sequences. Gadolinium enhancement dose is 18 mL of ProHance. Post gadolinium enhanced T1 weighted scans are acquired in all 3 planes. FINDINGS: No bony calvarial lesion is seen. Craniocervical junction and upper cervical cord remain unremarkable. Diffusion-weighted scans show no evidence of focally restricted diffusion to suggest acute ischemia. There are small vessel changes in the periventricular white matter as before. There is no evidence of intracranial mass lesion. No vascular abnormality is observed. On postcontrast images, there is significant improvement in the previously noted pattern of intracranial metastatic enhancing foci. Previously noted enhancing nodules have resolved. There is a focus of enhancement in the right inferior cerebellar hemisphere today measuring 3 mm in diameter which does not appear to have been present previously. There is an equivocal 3 mm focus in the region of the left splenium of the corpus callosum on the left on coronal images. This is not seen on sagittal or axial post gadolinium enhanced images and is equivocal. No other abnormal focus of enhancement is seen today. No extra-axial fluid collection is seen. IMPRESSION: Significant improvement. Previously noted foci of enhancement are resolved. There is 1 focus of enhancement 3 mm in diameter in the right inferior cerebellar hemisphere which was not definitely apparent previously. <Electronically signed by Jesse Saldivar > 08/08/20 [id number]
== END ==
LOC: M RAD 14:43
PROVIDERS: ATTEND General Practice
DX: C79.31 Secondary malignant neoplasm of brain (principal)
CPT/HCPCS: 70553; A9576

== ENCOUNTER → 2020-09-07 | Outpatient (CLI) | payer OTHER ==
[~2020-09-07] MED LIST changes: -PROHANCE 279.3MG/ML 15ML VIAL As Ordered ONE; -PROHANCE 279.3MG/ML 5ML VIAL As Ordered ONE
== END ==
LOC: M ONCR 15:15
PROVIDERS: ATTEND General Practice
DX: R11.0 Nausea (principal); R10.9 Unspecified abdominal pain; R21 Rash and other nonspecific skin eruption

== ENCOUNTER → 2020-09-13 | Outpatient (CLI) | payer OTHER ==
[~2020-09-13] MED LIST changes: +PROHANCE 279.3MG/ML 5ML VIAL As Ordered ONE
--- NOTE | 2020-09-13 16:35 | REPVR ---
PROCEDURE INFORMATION: Exam: MR Head Without and With Contrast Exam date and time: 09/13/2020 3:06 PM Age: 69 years old Clinical indication: Condition or disease; Cancer; Metastatic or secondary malignancy of brain; Primary cancer: Lung; Additional info: Lung CA w/ brain mets TECHNIQUE: Imaging protocol: MR of the head without and with intravenous contrast. Contrast material: PROHANCE; Contrast volume: 8 ml; Contrast route: INTRAVENOUS (IV); COMPARISON: MRI-Brain W/O FOLL BY WITH 08/08/2020 3:19 PM FINDINGS: Brain: Numerous scattered round enhancing lesions throughout the bilateral supratentorial and infratentorial brain, example lesion in the right brachium pontis measuring 0.7 cm, and example lesion in the right thalamus measuring 0.6 cm. Overall lesions are greater in number and increased in size since prior MRI from 04/12/2020. Two of these lesions, 1 in the superior left frontal lobe and 1 in the right brachium pontis, demonstrate prominent DWI hyperintensity. No geographic regions of district diffusion to suggest acute infarct. Nonspecific T2/FLAIR hyperintensities of the periventricular and deep subcortical white matter, most likely secondary to chronic small vessel ischemic change. No evidence of acute intracranial hemorrhage or extra-axial fluid collection. No midline shift. Cerebral ventricles: Generalized mild prominence of the ventricles and sulci, likely attributed to parenchymal volume loss. Bones/joints: Unremarkable. Paranasal sinuses: Mild mucosal thickening of the frontal and ethmoid sinuses. Mastoid air cells: Partial opacification of bilateral mastoid air cells Orbital cavity: Unremarkable. Soft tissues: Unremarkable. IMPRESSION: 1. Findings compatible with diffuse metastatic disease to the brain, overall progressed when compared with prior MRI brain from 04/12/2020. 2. Other findings, as above. Electronically signed by: Herrera Medina On 09/13/2020 16:34:27 PM
== END ==
LOC: M RAD 13:19
PROVIDERS: ATTEND General Practice
DX: C79.31 Secondary malignant neoplasm of brain (principal)
CPT/HCPCS: 70553; A9576

== ENCOUNTER → 2020-09-15 | Outpatient (CLI) | payer OTHER ==
[~2020-09-15] MED LIST changes: +GASTROGRAFIN SOLUTION 30ML (Q9963) As Ordered ONE; +ISOVUE-370 76% 100ML VIAL As Ordered ONE; -PROHANCE 279.3MG/ML 5ML VIAL As Ordered ONE
--- NOTE | 2020-09-15 15:00 | REP ---
INDICATION: SECONDARY MALSECONDARY MALIGNANT NEOPLASM OF BRAIN. Right upper lobe malignancy. Small cell lung carcinoma for restaging. COMPARISON: Comparison chest CT study July 17, 2020. Comparison is also made with prior study from 03 March 2020.. TECHNIQUE: Helical scanning is acquired following the intravenous injection of 100 mL of Isovue 370. 3 mm axial images re-formatted. Coronal and sagittal MPR images are generated. FINDINGS: Digital preliminary cyber security analyst radiograph demonstrates an Jarxlh-T-Zprc catheter. Post injection CT images demonstrate evidence of a right subclavian vein occlusion with numerous collateral veins and collateral opacification of the left brachiocephalic and internal jugular vein. The left subclavian vein may be occluded as well as it is very poorly seen. No mass lesion is seen in either of these areas. There is a right internal jugular central venous Jogkwo-O-Efsm catheter. There is good opacification of the pulmonary arterial tree and the thoracic aorta. There is no CT evidence of pulmonary embolus or aortic aneurysmal disease. No evidence of dissection. No pleural or pericardial effusion is seen. No adrenal mass is observed. The previously noted subtle pulmonary nodules in the right lung apex have resolved. No new pulmonary mass lesion is seen. There is no evidence of pleural effusion or infiltrate. No endobronchial disease is seen. No mediastinal mass or adenopathy is observed. 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 Opacification of multiple collaterals from right arm injection. Previously noted pleural based nodules in the right lung have regressed. No active pulmonary parenchymal hilar or mediastinal disease seen. No pleural effusion is noted. <Electronically signed by Jesse Saldivar > 09/15/20 [id number]
--- NOTE | 2020-09-15 15:20 | REP ---
INDICATION: SECONDARY MALSECONDARY MALIGNANT NEOPLASM OF BRAIN. COMPARISON: Comparison CT studies are from July 17, 2020 and June 04, 2020.. TECHNIQUE: Helical scanning is acquired and 3 mm axial images re-formatted. Coronal and sagittal MPR images are generated. The CT contrast enhancement dose is 100 mL of intravenous Isovue 370. FINDINGS: Digital preliminary registered nurse maternal child radiograph is unremarkable. No focal hepatic or splenic lesion is seen. The gallbladder is unremarkable. There is a small descending duodenal diverticulum. No pancreatic abnormality is observed. Vascular calcification is seen. Normal adrenal glands are seen bilaterally. There is a new area of focal cortical thickening/mass effect in the upper pole the right kidney measuring up to 5 cm in greatest diameter. It has ill-defined somewhat infiltrative margins. A acute or subacute renal infarct could have this appearance but I suspect an infiltrative mass. The renal veins are not dilated compared to prior study. Renal artery shows enhancement consistent with patency. There is no evidence hydronephrosis on either side. No left renal mass lesion is seen. No retroperitoneal mass or adenopathy is observed. There is a small infrarenal abdominal aortic aneurysm measuring 3.3 cm in greatest AP dimension unchanged. There is scattered colonic diverticulosis without CT evidence of diverticulitis. Prostate is prominent in size and contains dystrophic calcifications. No bladder mass lesion is observed. No abdominal wall defect is seen. On bone window settings, there is no evidence of bony destructive lesion. There are degenerative spondylosis changes in the lumbar spine. IMPRESSION: There is a new infiltrative appearing lesion in the right kidney upper pole. Differential possibilities include focal pyelonephritis, renal infarct from arterial or venous thrombosis, versus is renal metastatic lesion. Doppler sonography of the renal arteries and veins could be considered. <Electronically signed by Jesse Saldivar > 09/15/20 [id number]
== END ==
LOC: M RAD 11:53
PROVIDERS: ATTEND General Practice
DX: C34.11 Malignant neoplasm of upper lobe, right bronchus or lung (principal); C79.31 Secondary malignant neoplasm of brain; N28.9 Disorder of kidney and ureter, unspecified
CPT/HCPCS: 71260; 74177; Q9963; Q9967

== ENCOUNTER → 2020-09-19 | Outpatient (CLI) | payer OTHER ==
--- NOTE | 2020-09-07 15:57 | RADENCPD ---
Date/Time of Encounter Date of Encounter: Sep 07, 2020 Time of Encounter: 15:47 Encounter Arpit came in for an unscheduled follow up today with a complaint of acutely worsened nausea and abdominal pain. He has been dealing with these symptoms since the start of treatment in late March. He has lost an additional 10 lbs since I last saw him on 07/24/20. He is 190 lbs today from 201 lbs. He is running low on zofran and [facility] He has been on keytruda with Dr. Skaggs. He has also noted a rash on the forearms, which is purpuric and non-blanching. He states it is not painful or itchy. I have an MRI scheduled for 09/13/20 and a followup on the books for the following week with him. I discussed adding body scans to this to investigate the state of his disease, and also possibly elucidate a cause for his worsening abdominal pain. He agreed to proceed. Plan Add CT chest abdomen pelvis to previously scheduled MRI brain Refill zofran Add zyprexa 5 mg daily for nausea Follow up after scans CHRIS ECKERT MD Sep 07, 2020 15:57
--- NOTE | 2020-09-18 09:40 | RADENCPD ---
Date/Time of Encounter Date of Encounter: Sep 18, 2020 Time of Encounter: 09:35 Encounter Spoke to Arpit today regarding his CT scans and MRI. Discussed that the lungs are clear and that there is an indeterminate lesion in the right kidney, infarct versus metastasis. With respect to the brain there are 8 new small volume metastases. I recommended SRS for this as he has had prior WBRT. I would give 27 Gy in 3 fractions. We geeta l plan on simulation tomorrow, 09/19/20 @ 1:00PM. I discussed that SRS poses no additional neurocognitive risk, but there is a necrosis risk of ~10% which could cause PINO, nausea, vomiting etc. He agreed to proceed. He has also had intractable GI pain and nausea with no apparent cause other than temporal correlation with start of chemotherapy last March. He has tried all manner of medications for this. I recently sent an olanzapine script to the [facility] for this, he has not received the medication yet however. We discussed that he may benefit from a GI consultation, given this pain may be related to impaired motility or more insidious cause, which could be best assessed internally with EGD, therefore I will refer him to GI. CHRIS ECKERT MD Sep 18, 2020 09:40
[~2020-09-19] MED LIST changes: -GASTROGRAFIN SOLUTION 30ML (Q9963) As Ordered ONE; -ISOVUE-370 76% 100ML VIAL As Ordered ONE
== END ==
LOC: EEVIPCON 13:00 → M ONCR 13:03
PROVIDERS: ATTEND General Practice
DX: C34.11 Malignant neoplasm of upper lobe, right bronchus or lung (principal)

== ENCOUNTER → 2020-09-25 | Outpatient (POV) | payer OTHER ==
[~2020-09-25] VITALS: Ht 182.9 cm; Wt 85.5 kg
[2020-09-25 15:18] VITALS: BP 139/95
--- NOTE | 2020-09-27 13:40 | IRPN ---
[facility] IR Progress Note IR Progress Note DATE: Sep 25, 2020 FOLLOW-UP: 69-year-old male with extensive lung cancer, status post chemotherapy and whole brain radiation, had port placed at [facility] earlier this year. This was then complicated by right neck venous thrombosis. He's been on anticoagulation for greater than 3 months. Patient reports the swelling has come down but he is still bothered by the port, it hurts him. Patient would like to have the port removed. ON EXAMINATION: Decreased swelling of the right neck. Nontender. Normal neck movements. There are superficial collateral veins over the right chest. IMAGING: I personally reviewed the CT chest with contrast performed 09/15/2020. Right chest port is looped up in the right neck. It is unclear to me, how deep to the clavicle, the catheter actually enters the vein. Multiple interjecting vessels. Multiple collaterals over the anterior and lateral right thorax. Prominent internal mammary artery projecting over the port. IMPRESSION: 69-year-old male with lung cancer, [facility]. This was complicated by venous thrombosis for which he has been on anticoagulation for greater than 3 months. The port has not been used due to pain and patient would like the port removed. Patient will be referred back to his original surgeon at the [facility] for this port removal. Thank you for this referral. Cc Dr. Dubois Cc Dr. Manzanares Allergies Coded Allergies: No Known Allergies (Unverified , 02/19/18) VS,Fishbone, I+O VS, Fishbone, I+O Vital Signs Date Time Temp Pulse Resp B/P (MAP) Pulse Ox O2 Delivery O2 Flow Rate FiO2 09/25/20 15:18 97.7 80 20 139/95 (110) 99 Room Air ALLISON JORDAN MD Sep 27, 2020 13:40
== END ==
LOC: M IRPOV 14:50
PROVIDERS: ATTEND Radiology Diagnostic Radiology
DX: C34.90 Malignant neoplasm of unspecified part of unspecified bronchus or lung (principal); Z45.2 Encounter for adjustment and management of vascular access device; Z86.718 Personal history of other venous thrombosis and embolism; Z92.21 Personal history of antineoplastic chemotherapy; Z92.3 Personal history of irradiation

== ENCOUNTER → 2020-10-03 | Outpatient (RCR) | payer OTHER | LOC: M ONCR 09-19 12:57 | PROVIDERS: ATTEND General Practice | DX: C79.31 Secondary malignant neoplasm of brain (principal) ==

== ENCOUNTER 2020-10-04 13:55 | Outpatient (RCR) | payer OTHER ==
[~2020-10-04 13:55] MED LIST changes: +OLAN1TAB16 PO; -OLAN5TAB PO
== END 2020-11-03 ==
LOC: M ONCR 13:55
PROVIDERS: ATTEND General Practice
DX: C79.31 Secondary malignant neoplasm of brain (principal)

== ENCOUNTER → 2020-11-06 | Outpatient (CLI) | payer OTHER ==
[~2020-11-06] MED LIST changes: +COLA100C5 PO; +DOK1CAP4 PO; -DOK1CAP7 PO; +GASTROGRAFIN SOLUTION 30ML (Q9963) As Ordered ONE; +ISOVUE-370 76% 100ML VIAL As Ordered ONE; +MIRA3350 PO; +MORP1SOL PO; +SENN-80 PO
== END ==
LOC: M RAD 13:03
PROVIDERS: ATTEND Internal Medicine
DX: C34.90 Malignant neoplasm of unspecified part of unspecified bronchus or lung (principal)
CPT/HCPCS: 71260; 74177; Q9963; Q9967

== ENCOUNTER → 2020-11-09 | Outpatient (CLI) | payer OTHER ==
[~2020-11-09] MED LIST changes: -GASTROGRAFIN SOLUTION 30ML (Q9963) As Ordered ONE; -ISOVUE-370 76% 100ML VIAL As Ordered ONE
== END ==
LOC: M ONCR 14:08
PROVIDERS: ATTEND General Practice
DX: C34.11 Malignant neoplasm of upper lobe, right bronchus or lung (principal)